=== PATIENT | female | born 1960 | race Caucasian/White ===

== ENCOUNTER 2019-08-12 07:40 | Outpatient (CLI) | payer MEDICAID, SELFPAY ==
[2019-08-12 09:11] LABS: Free T4 Free Thyroxine 0.98 ng/dL (0.76-1.46); Thyroid Stimulating Hormone 0.02 uIU/mL (0.36-3.74)
[2019-08-20 10:36] LABS: Vitamin D 25 Hydroxy 39 ng/mL (30-100)
== END 2019-08-12 07:41 | disposition home or self-care (01) ==
PROVIDERS: PCP Family Medicine; Visit Provider Family Medicine
DX: E03.9 Hypothyroidism, unspecified (principal); E78.2 Mixed hyperlipidemia; E55.9 Vitamin D deficiency, unspecified
CPT/HCPCS: 36415; 82306; 84439; 84443

== ENCOUNTER 2019-08-30 09:37 | Outpatient (CLI) | payer MEDICAID, SELFPAY ==
--- NOTE | ~2019-08-30 | MM_ITS ---
EXAMINATION: MM screening dharmesh BI w li HISTORY: Screening mammogram TECHNIQUE: Craniocaudal and mediolateral oblique 3-D tomosynthesis images were obtained and synthetic 2-D images were generated. CAD analysis was submitted and interpreted. COMPARISON: 08/17/2017 diagnostic left mammogram and left breast ultrasound 08/04/2017, 01/24/2016 bilateral digital screening mammogram examinations BREAST PARENCHYMAL COMPOSITION: The breasts are almost entirely fatty. FINDINGS: There is no evidence of suspicious mass, calcification, or architectural distortion to sugg est malignancy in either breast. There has been no suspicious interval change. IMPRESSION: 1. No mammographic evidence of malignancy. 2. Recommend routine screening mammography in one year. BI-RADS Category 1: Negative Reviewed, dictated and finalized at location A.
== END 2019-08-30 09:38 | disposition home or self-care (01) ==
PROVIDERS: PCP Family Medicine; Visit Provider Family Medicine
DX: Z12.31 Encounter for screening mammogram for malignant neoplasm of breast (principal)
CPT/HCPCS: 77063; 77067

== ENCOUNTER 2019-12-14 17:00 | Outpatient (CLI) | payer MEDICAID, SELFPAY ==
--- NOTE | ~2019-12-14 | XR_ITS ---
XR hand RT min 3V DATE: 12/14/2019 17:15 INDICATION: Right hand pain TECHNIQUE: 3 views COMPARISON: None FINDINGS: There is generalized soft tissue swelling of the right hand. No fracture or dislocation, periosteal reaction or bone destruction, erosive change or chondrocalcino sis. IMPRESSION: Generalized soft tissue swelling of right hand Reviewed, dictated and finalized at location A.
== END 2019-12-14 17:01 | disposition home or self-care (01) ==
LOC: CHSIMG 17:01
PROVIDERS: PCP Family Medicine; Visit Provider Family Medicine
DX: M25.541 Pain in joints of right hand (principal)
CPT/HCPCS: 73130

== ENCOUNTER 2020-01-06 12:46 | Outpatient (CLI) | payer MEDICAID, SELFPAY ==
[2020-01-07 15:24] LABS: SARS-CoV-2 RNA PCR Negative
== END 2020-01-06 12:47 | disposition home or self-care (01) ==
LOC: CHSLAB 12:50
PROVIDERS: PCP Family Medicine; Visit Provider Family Medicine
DX: Z20.828 Contact with and (suspected) exposure to other viral communicable diseases (principal)
CPT/HCPCS: 87635; C9803; U0003

== ENCOUNTER 2020-04-18 13:09 | Observation (INO) | payer BC, SELFPAY ==
[2020-04-18] VITALS (23 sets, daily range): BP systolic 86–162; BP diastolic 35–113; PULSE 71–83; RESP 11–26; TEMP 36.2–36.6; O2SAT 92–100
--- NOTE | ~2020-04-18 | XR_ITS ---
EXAMINATION: XR chest 1V INDICATION: Seizure TECHNIQUE: AP view of the chest is obtained. COMPARISON: None available FINDINGS: The lungs are free of acute opacities. There is no pleural effusion or pneumothorax. Mild e levation of the right hemidiaphragm is noted. The cardiomediastinal silhouette is normal. 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 IMPRESSION: 1. No acute cardiopulmonary abnormality. Reviewed, dictated and finalized at location A. ERCIAL REAL ESTATE SALES MANAGER
--- NOTE | ~2020-04-18 | CT_ITS ---
EXAMINATION: CT brain wo con DATE: 04/18/2020 14:03 INDICATION: Possible seizure TECHNIQUE: Computed tomography (CT) of the head was performed without intravenous contrast. The dose- length product was 605.33 mGy-cm. Automated exposure control and iterative reconstruction technique w ere employed. COMPARISON: None FINDINGS: Mild atrophy. No midline shift. Mild compensatory dilation of the ventricles. There is intr acranial atherosclerosis. There are scattered mild periventricular and subcortical white matter sky es, most likely related to small vessel ischemic disease (microangiopathy). Paranasal sinuses and mas toids are pneumatized. No acute intracranial hemorrhage, infarction, mass or mass effect. IMPRESSION: 1. No acute intracranial abnormality. 2: Chronic age-related findings. Reviewed, dictated and finalized at location B. ETY EDITOR
--- NOTE | 2020-04-18 13:20 | ECG_ITS ---
Measurements Intervals [place] Rate: 78 P: 58 MA: 175 QRS: 47 QRSD: 70 T: 50 QT: 371 QTc: 424 Interpretive Statements SINUS RHYTHM CANNOT RULE OUT SEPTAL INFARCT, AGE INDETERMINATE BORDERLINE ST-T WAVE ABNORMALITY- HIGH LATERAL LEADS BASELINE ARTIFACT- I, II, III, AVR, AVL, AVF, V2-V6 ABNORMAL ECG Electronically Signed On 04-18-2020 15:54:48 ROTARY FURNACE OPERATOR by Vinayak Chong D.O.
--- NOTE | 2020-04-18 13:20 | ED.SEIZURE ---
HPI - Seizure General Chief Complaint: Seizure Stated Complaint: SZ like activity Time Seen by Provider: 04/18/20 13:13 Source: RN notes reviewed History of Present Illness HPI Narrative: Patient presents to emergency department from [facility] for possible seizure-like activity. Per the correction the patient i was going to eat when a the patient began to have tremors in the bilateral arms patient did not lose consciousness at that time and had no loss of bowel or bladder patient does have a history of dementia and is ANO x1-0 at baseline and is new to the [facility]. Patient currently will open eyes and state name but does not give any other history is noted to have tremoring in bilateral upper extremities Related Data Home Medications Medication Instructions Recorded Confirmed aspirin [Aspirin Low Dose] 81 mg PO DAILY 04/18/20 buspirone 10 mg PO TID 04/18/20 divalproex [Depakote] 125 mg PO DAILY 04/18/20 04/18/20 donepezil [Aricept] 10 mg PO DAILY 04/18/20 escitalopram oxalate 10 mg PO DAILY 04/18/20 haloperidol 2 mg PO BID 04/18/20 levothyroxine 50 mcg PO DAILY 04/18/20 lisinopril 2.5 mg PO DAILY 04/18/20 Review of Systems Review of Systems: Narrative: Gen.: Denies fevers or chills ENT: Denies congestion Respiratory: Denies shortness of breath or cough CV: Denies chest pain GI: Denies abdominal pain nausea, emesis or diarrhea Musculoskeletal: Denies back pain or muscle pain Neuro: See HPI Skin: Denies rash Except as documented, all other systems reviewed and negative [facility] Past Medical History Medical History (Updated 04/18/20 @ 16:05 by Krunal Fatima DO) Dementia Social History Social History (Updated 04/18/20 @ 13:23 by Krunal Fatima DO) Smoking status: Never smoker Exam Narrative: Exam Narrative: APPEARANCE: No acute distress, nontoxic, resting in bed EYES: EOMI HEENT: Normocephalic, atraumatic, OMM RESPIRATORY: No respiratory distress Clear to auscultation bilaterally with no rhonchi wheezing or rales. CARDIOVASCULAR: Regular rate and rhythm without murmurs rubs or gallops. ABDOMINAL: Soft, nontender, nondistended, no rebound or guarding MUSCULOSKELETAl: Moves all extremities. No clubbing, cyanosis or edema. NEURO: Awake and alertx 1. Following commands, speech normal, no focal deficits tremoring in bilateral upper extremities that stops when the patient is distracted and focused on following another command SKIN:: Warm, dry. No rashes lesions or abrasions PSYCHIATRIC: Normal affect/mood, Course Course Emergency Course: Discussed with Dr. Perez presentation work-up agrees with plan for admission at this time agrees with plan for Rocephin and will monitor for any seizure activity Discussed with patient and family results of workup and diagnosis. Discussed need for admission. Patient and family understand and agree to current treatment plan Vital Signs Vital signs: Vital Signs Temperature 97.8 F 04/18/20 13:09 Pulse Rate 81 04/18/20 13:09 Respiratory Rate 18 04/18/20 13:09 Blood Pressure 139/69 04/18/20 13:09 Pulse Oximetry 100 04/18/20 13:09 Temperature 97.8 F 04/18/20 13:09 Pulse Rate 75 04/18/20 15:00 Respiratory Rate 16 04/18/20 15:00 Blood Pressure 162/113 H 04/18/20 15:17 Pulse Oximetry 99 04/18/20 14:46 MDM - Seizure Lab Data Result diagrams: 04/18/20 13:34 04/18/20 13:34 Labs: Lab Results 04/18/20 04/18/20 04/18/20 Range/Units 13:34 13:34 13:34 WBC 9.2 (4.5-10.0) K/mm3 RBC 3.51 L (4.2-5.4) M/mm3 Hgb 11.4 L (12.0-15.0) g/dL Hct 35.9 L (37.0-47.0) % MCV 102.3 H (80-100) fl MCH 32.5 (26-34) pg MCHC 31.8 L (32-36) g/dl RDW 15.9 H (11.5-14.5) % Plt Count 314 (150-375) k/mm3 MPV 10.4 (7.4-10.4) fl Immature Gran % (Auto) 0.4 (0-0.5) % Neut % (Auto) 64.1 (45.5-73.1) % Lymph % (Auto) 26.8 (18.3-44.2) % Perkins % (Auto) 7.7 (2.6-8.5) % Eos %
[2020-04-18 13:47] LABS: Basophils Absolute Auto 0.1 K/mm3 (0.0-0.1); Basophils Percent Auto 0.5 % (0.2-1.2); Eosinophils Absolute Auto 0.1 K/mm3 (0-0.3); Eosinophils Percent Auto 0.5 % (0-4.4); Hematocrit 35.9 % (37.0-47.0); Hemoglobin 11.4 g/dL (12.0-15.0); Immature Granulocyte Absolute 0.04 K/mm3 (0.00-0.031); Immature Granulocyte Percent A 0.4 % (0-0.5); Lymphocytes Absolute Auto 2.46 K/mm3 (0.9-3.2); Lymphocytes Percent Auto 26.8 % (18.3-44.2); Mean Corpuscular HGB Conc 31.8 g/dl (32-36); Mean Corpuscular Hemoglobin 32.5 pg (26-34); Mean Corpuscular Volume 102.3 fl (80-100); Mean Platelet Volume 10.4 fl (7.4-10.4); Monocytes Absolute Auto 0.7 K/mm3 (0.1-0.6); Monocytes Percent Auto 7.7 % (2.6-8.5); Neutrophils Absolute Auto 5.9 K/mm3 (1.3-6.7); Neutrophils Percent Auto 64.1 % (45.5-73.1); Platelet Count Result 314 k/mm3 (150-375); Red Blood Count 3.51 M/mm3 (4.2-5.4); Red Cell Distribution Width 15.9 % (11.5-14.5); White Blood Count 9.2 K/mm3 (4.5-10.0)
[2020-04-18 13:57] LABS: Prothrombin Time 13.5 Seconds (11.1-14.7)
[2020-04-18 13:58] LABS: Alanine Aminotransferase 15 U/L (4-35); Albumin Level 3.3 g/dL (3.5-5.1); Alkaline Phosphatase 74 U/L (38-126); Anion Gap 2 mmol/L (8-16); Aspartate Amino Transferase 24 U/L (14-36); Bilirubin,Total 0.2 mg/dL (0.2-1.3); Blood Urea Nitrogen 25 mg/dL (7-17); Calcium 8.7 mg/dL (8.4-10.2); Carbon Dioxide 33 mmol/L (22-30); Chloride 104 mmol/L (98-107); Estimated CRCL calculation 33 ml/min; Estimated Glomerular Filt Rate 33; Glucose 113 mg/dL (65-105); Potassium 4.5 mmol/L (3.4-5.0); Sodium 139 mmol/L (137-145)
[2020-04-18 13:59] LABS: Partial Thromboplastin Time 26.9 SECONDS (22.3-36.8)
[2020-04-18 14:58] LABS: Valproic Acid 74.1 ug/mL (50-120)
[2020-04-18 15:16] LABS: Add Urine Microscopic? YES; Appearance Urine Cloudy (Clear); Bacteria Urine 1+ /hpf; Bilirubin Urine Negative (Negative); Blood Urine Negative (Negative); Color Urine Yellow (Yellow); Glucose Urine UA 3+ mg/dL (Negative); Ketones Urine Negative (Negative); Leukocyte Esterase Ur 2+ LEU/UL (Negative); Mucus Urine Heavy /lpf; Nitrate Urine Positive (Negative); Protein Urine 2+ mg/dL (Negative); Specific Grav Ur 1.021 (1.001-1.035); Squamous Epithelial Cell Urine Few /hpf (Few); WBC Clumps Urine Present /HPF; WBC Urine >75 /hpf
--- NOTE | 2020-04-18 17:23 | PM.IMHP ---
H&P: HPI History of Present Illness Date/Time: 04/18/20 17:00 Chief Complaint: Tremors. Narrative: This is an unfortunate 59-year-old female with dementia, schizophrenia, hypothyroidism, and hypertension who presented to the emergency department earlier today via EMS from a local nursing facility with reports of tremors. The patient was being fed lunch and staff noticed that her hands and arms were tremoring and they thought perhaps she was having a seizure and sent her in for evaluation. On arrival to the emergency department she was alert and oriented x1, which is apparently her baseline. She was found to have a urinary tract infection and is being admitted in this setting, and for further evaluation to see if these tremors return. At the time my evaluation the nurses trying to obtain an IV. The patient can't provide me with any meaningful history, with bizarre and nonsensical speech. She is not fully cooperative with exam either, and frequently tries to remove her telemetry leads. Review of Systems Review of Systems: Narrative: A review of systems is unable to be obtained given her severe schizophrenia and dementia. [facility] Past Medical History Medical History (Updated 04/18/20 @ 20:20 by Lissa Delong PA-C) Alzheimer's dementia Anxiety Hypertension Hypothyroidism Schizophrenia Surgical History Surgical History (Updated 04/18/20 @ 20:20 by Lissa Delong PA-C) Surgical history unknown Family History Family History (Updated 04/18/20 @ 20:41 by Lissa Delong PA-C) Mother Lung cancer Father Esophageal cancer Son Chronic mental illness Social History Social History (Updated 04/18/20 @ 20:42 by Lissa Delong PA-C) Social History: The patient resides at [facility]. She has 3 children, but it does not sound as though they keep in touch. She smoked for a brief period of time when she was in her teenage years. No alcohol or illicit substance use. The patient's sister Gillian Cooney is listed in the computer as her emergency contact. I did speak with Emilee who reports that the patient's daughter, Claudia Reyes, would likely be her next of kin and surrogate decision maker, however. The patient is a full code at this time. No advanced directives are in place. Meds Home Medications and Allergies Home Medications Medication Instructions Recorded Confirmed Type aspirin [Adult Aspirin] 81 mg PO DAILY 04/18/20 04/18/20 History buspirone 10 mg PO TID 04/18/20 04/18/20 History divalproex [Depakote Sprinkles] 375 mg PO TID 04/18/20 04/18/20 History donepezil 10 mg PO DAILY 04/18/20 04/18/20 History ergocalciferol (vitamin D2) 1,250 mcg PO WEEKLY 04/18/20 04/18/20 History [Vitamin D2] escitalopram oxalate 10 mg PO DAILY 04/18/20 04/18/20 History haloperidol 2 mg PO BID 04/18/20 04/18/20 History levothyroxine 50 mcg PO DAILY 04/18/20 04/18/20 History lisinopril 2.5 mg PO DAILY 04/18/20 04/18/20 History memantine 10 mg PO BID 04/18/20 04/18/20 History Allergies Allergy/AdvReac Type Severity Reaction Status Date / Time No Known Allergies Allergy Verified 04/18/20 17:33 Vital Signs Vital Signs - 24 hr 04/18/20 13:09 04/18/20 13:13 04/18/20 13:15 Temperature 97.8 F Pulse Rate 81 81 82 Respiratory Rate 18 13 26 H Blood Pressure 139/69 Pulse Oximetry 100 98 98 04/18/20 13:16 04/18/20 13:30 04/18/20 13:32 Temperature Pulse Rate 82 80 81 Respiratory Rate 18 15 17 Blood Pressure 144/104 H 128/46 L Pulse Oximetry 100 100 98 04/18/20 13:45 04/18/20 13:47 04/18/20 14:09 Temperature Pulse Rate 79 79 76 Respiratory Rate 11 L 16 15 Blood Pressure 86/73 L Pulse Oximetry 98 04/18/20 14:10 04/18/20 14:15 04/18/20 14:16 Temperature Pulse Rate 76 Respiratory Rate 16 12 12 Blood Pressure 128/106 H 139/97 H Pulse Oximetry 100 100 99 04/18/20 14:30 04/18/20 14:31 04/18/20 14:45 Temperature Pulse Rate 73 74 74 Respiratory
--- NOTE | 2020-04-18 17:47 | ADMGEN ---
This patient, Vicki Proctor, was admitted to Medical Room 246-. Patient/family oriented to hospital policies and general routines including ID bracelet, bed and alarms, visiting hours, pain management, procedures, bathroom and other care routines, personal items, smoking policy, room service/diet, and visiting hours. Information on how to activate the Rapid Response Team has been discussed. Patient/Family are encouraged to report perceived risks to care and to ask questions if they do not understand what they are told or what they should do.
[2020-04-18] MEDS: SODIUM CHLORIDE 0.9% IV 1,000 ML 100 ML IV CONT (18:21)
[2020-04-18] MEDS: HALOPERIDOL 1 MG TABLET 2 MG PO (21:29)
[2020-04-18] MEDS: DIVALPROEX SODIUM SPRINKLE 125 MG CAP.DR 375 MG PO (21:30)
[2020-04-18] MEDS: busPIRone HCL 10 MG TABLET PO (21:30)
[2020-04-18] MEDS: MEMANTINE 10 MG TABLET PO (21:30)
[2020-04-18 21:52] LABS: Creatine Kinase 171 U/L (30-135)
[2020-04-18 22:22] LABS: Iron 35 ug/dL (37-170)
[2020-04-18 22:31] LABS: Percent Iron Saturation 13 % (20-50)
[2020-04-18 22:32] LABS: Valproic Acid 57.3 ug/mL (50-120)
[2020-04-18 22:59] LABS: Folic Acid 12.1 ng/mL (2.76->20)
--- NOTE | 2020-04-18 23:52 | PC.NURSE ---
Pt does not tolerate telemetry, pt continuously removes leads. Telemetry order D/C by Lissa Delong.
[2020-04-19 05:56] VITALS: BP 146/76; PULSE 100; RESP 16; TEMP 36.1; O2SAT 95
[2020-04-19 05:58] LABS: Basophils Absolute Auto 0.1 K/mm3 (0.0-0.1); Basophils Percent Auto 0.6 % (0.2-1.2); Eosinophils Absolute Auto 0.1 K/mm3 (0-0.3); Eosinophils Percent Auto 1.7 % (0-4.4); Hematocrit 31.3 % (37.0-47.0); Hemoglobin 9.9 g/dL (12.0-15.0); Immature Granulocyte Absolute 0.02 K/mm3 (0.00-0.031); Immature Granulocyte Percent A 0.2 % (0-0.5); Lymphocytes Percent Auto 41.7 % (18.3-44.2); Mean Corpuscular HGB Conc 31.6 g/dl (32-36); Mean Corpuscular Hemoglobin 31.3 pg (26-34); Mean Corpuscular Volume 99.1 fl (80-100); Mean Platelet Volume 10.8 fl (7.4-10.4); Monocytes Absolute Auto 0.8 K/mm3 (0.1-0.6); Monocytes Percent Auto 9.6 % (2.6-8.5); Neutrophils Absolute Auto 3.8 K/mm3 (1.3-6.7); Neutrophils Percent Auto 46.2 % (45.5-73.1); Platelet Count Result 293 k/mm3 (150-375); Red Blood Count 3.16 M/mm3 (4.2-5.4); Red Cell Distribution Width 15.4 % (11.5-14.5); White Blood Count 8.2 K/mm3 (4.5-10.0)
[2020-04-19 06:01] LABS: Magnesium 1.9 mg/dL (1.6-2.3)
[2020-04-19 06:08] LABS: Alanine Aminotransferase 11 U/L (4-35); Albumin Level 2.6 g/dL (3.5-5.1); Alkaline Phosphatase 67 U/L (38-126); Anion Gap 2 mmol/L (8-16); Aspartate Amino Transferase 21 U/L (14-36); Bilirubin,Total 0.2 mg/dL (0.2-1.3); Blood Urea Nitrogen 21 mg/dL (7-17); Calcium 8.1 mg/dL (8.4-10.2); Carbon Dioxide 29 mmol/L (22-30); Chloride 108 mmol/L (98-107); Estimated CRCL calculation 41 ml/min; Estimated Glomerular Filt Rate 50; Glucose 85 mg/dL (65-105); Potassium 4.2 mmol/L (3.4-5.0); Sodium 139 mmol/L (137-145)
[2020-04-19] MEDS: LEVOTHYROXINE SODIUM 50 MCG TABLET PO (06:17)
[2020-04-19] MEDS: SODIUM CHLORIDE 0.9% IV 1,000 ML 100 ML IV CONT (07:22)
[2020-04-19] MEDS: HALOPERIDOL 1 MG TABLET 2 MG PO ×2 (09:04→17:07)
[2020-04-19] MEDS: DONEPEZIL HCL 10 MG TABLET PO (09:05)
[2020-04-19] MEDS: MEMANTINE 10 MG TABLET PO ×2 (09:05→17:07)
[2020-04-19] MEDS: ESCITALOPRAM OXALATE 10 MG TABLET PO (09:05)
[2020-04-19] MEDS: busPIRone HCL 10 MG TABLET PO ×3 (09:05→17:07)
[2020-04-19] MEDS: lisinopriL 2.5 MG TABLET PO (09:05)
[2020-04-19] MEDS: DIVALPROEX SODIUM SPRINKLE 125 MG CAP.DR 375 MG PO ×3 (09:05→17:07)
[2020-04-19] MEDS: ASPIRIN 81 MG CHEWABLE TABLET PO (09:05)
[2020-04-19 09:50] VITALS: O2SAT 95
--- NOTE | 2020-04-19 11:41 | PM.IMPN ---
Progress Note: A&P Assessment and Plan (1) Coarse tremors: Code(s): G25.2 - Other specified forms of tremor Status: Resolved Assessment and Plan: Brought in from alf due to staff noticing tremor. This has not been present since she has been admitted. CT brain shows chronic age-related findings without acute intracranial abnormality. (2) Urinary tract infection: Code(s): N39.0 - Urinary tract infection, site not specified Status: Acute Assessment and Plan: UA grossly abnormal. No leukocytosis or fever. She was given a dose of Rocephin prior to losing IV access; we will switch to oral cefdinir while awaiting blood and urine cultures. (3) Macrocytic anemia: Code(s): D53.9 - Nutritional anemia, unspecified Status: Acute Assessment and Plan: Baseline is unclear. No evidence of acute bleeding. Monitor CBC. (4) Renal failure: Code(s): N19 - Unspecified kidney failure Status: Acute Assessment and Plan: Baseline is unclear. Cr 1.6 on arrival, improved to 1.1 with IV fluids. May have been related to poor oral intake recently. She is eating and drinking okay today, discontinue IV fluids and monitor renal function and urine output. (5) Hypertension: Code(s): I10 - Essential (primary) hypertension Status: Chronic Assessment and Plan: BPs stable maintained on lisinopril. Monitor BP and adjust treatment as needed. (6) Alzheimer's dementia: Code(s): G30.9 - Alzheimer's disease, unspecified; F02.80 - Dementia in other diseases classified elsewhere without behavioral disturbance Status: Chronic Assessment and Plan: Continue home aricept and namenda. Continue lexapro, haldol, depakote. Stable. (7) Hypothyroidism: Code(s): E03.9 - Hypothyroidism, unspecified Status: Chronic Assessment and Plan: Continue home levothyroxine. (8) Schizophrenia: Code(s): F20.9 - Schizophrenia, unspecified Status: Chronic Assessment and Plan: Continue home meds as stated above. Mood is stable today without acute issues. Subjective Date/time seen: 04/19/20 1130 Interval history: Ms. Proctor is a 59yo F with dementia and schizophrenia who is admitted after alf staff noted tremor. Also has UTI. Patient is resting comfortably and wakes a bit to answer questions, but does not answer all questions appropriately. Review of systems is limited due to her mental status however she tells me she is not in any pain. Review of Systems Review of Systems: ROS unobtainable: Yes unobtainable due to mental status Exam Narrative: Exam Narrative: General: Female resting supine in bed in no acute distress. HEENT: Normocephalic, EOMI, oral mucosa moist. Cardiovascular: Rate and rhythm are regular. Respiratory: Lungs clear to auscultation bilaterally. Respirations even and non-labored. Tolerating room air. Abdomen: Soft, non-tender, non-distended, bowel sounds present. Extremities: Peripheral pulses intact. No edema. Neuro: Sleeping but wakes to her name. Oriented to self. I have been told this is her baseline. No focal neurological deficits. Speech is clear. Objective Data Vital Signs Vital Signs: Last Vital Signs Temp 96.9 F L 04/19/20 05:56 Pulse 100 04/19/20 05:56 Resp 16 04/19/20 05:56 BP 146/76 H 04/19/20 05:56 Pulse Ox 95 04/19/20 09:50 Intake/Output Intake/Output: Intake & Output 04/16/20 04/17/20 04/18/20 04/19/20 23:59 23:59 23:59 23:59 Intake Total 50 1360 Balance 50 1360 Meds/Results Medications: Active Medi
[2020-04-19 14:00] VITALS: BP 139/56; PULSE 80; RESP 16; TEMP 36.3; O2SAT 94
[2020-04-19] MEDS: CEFDINIR 300 MG CAPSULE PO (17:07)
[2020-04-19 20:53] LABS: SARS-CoV-2 RNA PCR Negative
[2020-04-19 21:56] VITALS: BP 134/72; PULSE 75; RESP 16; TEMP 36.6; O2SAT 97
[2020-04-20 05:30] VITALS: BP 139/73; PULSE 73; RESP 18; TEMP 36.6; O2SAT 95
[2020-04-20 05:49] LABS: Basophils Absolute Auto 0.1 K/mm3 (0.0-0.1); Eosinophils Absolute Auto 0.2 K/mm3 (0-0.3); Eosinophils Percent Auto 2.8 % (0-4.4); Hemoglobin 10.9 g/dL (12.0-15.0); Immature Granulocyte Absolute 0.03 K/mm3 (0.00-0.031); Immature Granulocyte Percent A 0.4 % (0-0.5); Lymphocytes Absolute Auto 3.74 K/mm3 (0.9-3.2); Lymphocytes Percent Auto 54.8 % (18.3-44.2); Mean Corpuscular Hemoglobin 32.9 pg (26-34); Mean Corpuscular Volume 99.7 fl (80-100); Mean Platelet Volume 10.5 fl (7.4-10.4); Monocytes Absolute Auto 0.6 K/mm3 (0.1-0.6); Monocytes Percent Auto 8.7 % (2.6-8.5); Neutrophils Absolute Auto 2.2 K/mm3 (1.3-6.7); Neutrophils Percent Auto 32.3 % (45.5-73.1); Platelet Count Result 305 k/mm3 (150-375); Red Blood Count 3.31 M/mm3 (4.2-5.4); Red Cell Distribution Width 15.1 % (11.5-14.5); White Blood Count 6.8 K/mm3 (4.5-10.0)
[2020-04-20 06:01] LABS: Anion Gap 1 mmol/L (8-16); Blood Urea Nitrogen 16 mg/dL (7-17); Calcium 8.4 mg/dL (8.4-10.2); Carbon Dioxide 32 mmol/L (22-30); Chloride 105 mmol/L (98-107); Estimated CRCL calculation 41 ml/min; Estimated Glomerular Filt Rate 50; Glucose 77 mg/dL (65-105); Magnesium 1.9 mg/dL (1.6-2.3); Potassium 4.1 mmol/L (3.4-5.0); Sodium 138 mmol/L (137-145)
[2020-04-20] MEDS: LEVOTHYROXINE SODIUM 50 MCG TABLET PO (06:29)
[2020-04-20] MEDS: DIVALPROEX SODIUM SPRINKLE 125 MG CAP.DR 375 MG PO ×3 (09:09→17:05)
[2020-04-20] MEDS: ESCITALOPRAM OXALATE 10 MG TABLET PO (09:09)
[2020-04-20] MEDS: DONEPEZIL HCL 10 MG TABLET PO (09:09)
[2020-04-20] MEDS: MEMANTINE 10 MG TABLET PO ×2 (09:09→17:05)
[2020-04-20] MEDS: busPIRone HCL 10 MG TABLET PO ×3 (09:09→17:05)
[2020-04-20] MEDS: CEFDINIR 300 MG CAPSULE PO ×2 (09:09→20:52)
[2020-04-20] MEDS: lisinopriL 2.5 MG TABLET PO (09:09)
[2020-04-20] MEDS: ASPIRIN 81 MG CHEWABLE TABLET PO (09:09)
[2020-04-20] MEDS: HALOPERIDOL 1 MG TABLET 2 MG PO ×2 (09:09→17:05)
--- NOTE | 2020-04-20 10:23 | PM.DS ---
DS: Admitting Diagnosis Admitting Diagnosis Admitting Diagnosis: UTI DS: Discharge Diagnosis Discharge Diagnosis (1) Coarse tremors: Code(s): G25.2 - Other specified forms of tremor Status: Resolved Assessment and Plan: Date of Admission 04/18/20 Date of Discharge/DOS 04/20/20 Ms. Proctor is a 59yo F with dementia and schizophrenia, hypertension, and hypothyroidism, who presented to the ED from [facility] because long term staff noticed she had a tremor. This tremor was resolved at time of her arrival and did not recur during her admission. CT brain demonstrated no acute intracranial abnormalities. Routine lab work was grossly normal aside from mild acute kidney injury which resolved with IV fluids (suspect related to mild dehydration), an abnormal urinalysis and urine culture growing pansensitive E coli. She will discharge with oral cefdinir to complete course of antibiotics. COVID testing 04/19/20 is negative. She is hemodynamically stable for discharge on 04/20/20 to be seen by PCP/long term provider in about 1 week. Brought in from long term due to staff noticing tremor. This has not been present since she has been admitted. CT brain shows chronic age-related findings without acute intracranial abnormality. (2) Urinary tract infection: Code(s): N39.0 - Urinary tract infection, site not specified Status: Acute Assessment and Plan: UA grossly abnormal. No leukocytosis or fever. She was given a dose of Rocephin prior to losing IV access. Continue oral cefdinir. Urine culture growing >100,000 pansensitive E coli. (3) Macrocytic anemia: Code(s): D53.9 - Nutritional anemia, unspecified Status: Acute Assessment and Plan: Baseline is unclear. No evidence of acute bleeding. Monitor CBC. (4) Renal failure: Code(s): N19 - Unspecified kidney failure Status: Acute Assessment and Plan: Baseline is unclear. Cr 1.6 on arrival, improved to 1.1 with IV fluids. May have been related to poor oral intake recently. She is eating and drinking okay now. (5) Hypertension: Code(s): I10 - Essential (primary) hypertension Status: Chronic Assessment and Plan: BPs stable maintained on lisinopril. (6) Alzheimer's dementia: Code(s): G30.9 - Alzheimer's disease, unspecified; F02.80 - Dementia in other diseases classified elsewhere without behavioral disturbance Status: Chronic Assessment and Plan: Continue home aricept and namenda. Continue lexapro, haldol, depakote. Stable. (7) Hypothyroidism: Code(s): E03.9 - Hypothyroidism, unspecified Status: Chronic Assessment and Plan: Continue home levothyroxine. (8) Schizophrenia: Code(s): F20.9 - Schizophrenia, unspecified Status: Chronic Assessment and Plan: Continue home meds as stated above. Mood is stable today without acute issues. DS: Summary Hospital Course Hospital Course: See above. Time Spent with Patient Time attestation: Total time spent providing and/or coordinating discharge services: 35 minutes Exam Narrative: Exam Narrative: General: Female resting supine in bed in no acute distress. HEENT: Normocephalic, EOMI, oral mucosa moist. Cardiovascular: Rate and rhythm are regular. Respiratory: Lungs clear to auscultation bilaterally. Respirations even and non-labored. Tolerating room air. Abdomen: Soft, non-tender, non-distended, bowel sounds present. Extremities: Peripheral pulses intact. No edema. Neuro: Awake. Oriented t
[2020-04-20 14:00] VITALS: BP 133/88; PULSE 70; RESP 14; TEMP 36.5; O2SAT 95
[2020-04-20 22:00] VITALS: BP 142/76; PULSE 68; RESP 20; TEMP 37.2; O2SAT 96
--- NOTE | 2020-04-27 08:52 | PC.NURSE ---
Blood cx are negative
--- NOTE | 2020-04-30 16:11 | PC.NURSE ---
blood cx negative.
== END 2020-04-21 01:05 ==
LOC: ANHED 16:05 → ANH2MED 16:22
PROVIDERS: Physician Assistant; Admitting Provider Family Medicine; Emergency Provider Emergency Medicine; Visit Provider Family Medicine
DX: N39.0 Urinary tract infection, site not specified (principal); G25.2 Other specified forms of tremor; B96.20 Unspecified Escherichia coli [E. coli] as the cause of diseases classified elsewhere; I10 Essential (primary) hypertension; E03.9 Hypothyroidism, unspecified; D53.9 Nutritional anemia, unspecified; N19 Unspecified kidney failure; G30.9 Alzheimer's disease, unspecified; F02.80 Dementia in other diseases classified elsewhere, unspecified severity, without behavioral disturbance, psychotic disturbance, mood disturbance, and anxiety; F20.9 Schizophrenia, unspecified; F41.9 Anxiety disorder, unspecified; Z20.822 Contact with and (suspected) exposure to COVID-19; Z80.0 Family history of malignant neoplasm of digestive organs; Z80.1 Family history of malignant neoplasm of trachea, bronchus and lung
CPT/HCPCS: 36415; 51701; 70450; 71045; 80048; 80053; 80164; 81001; 82550; 82607; 82728; 82746; 83540; 83550; 83735; 84443; 85025; 85610; 85730; 87040; 87077; 87086; 87088; 87186; 93005; 96360; 96361; 96365; 99285; A9270; C9803; G0378; G0379; J0696; J7030; U0003; U0005

== ENCOUNTER 2020-07-06 12:09 | Inpatient (IN) | payer BC, SELFPAY ==
--- NOTE | ~2020-07-06 | XR_ITS ---
EXAMINATION: XR chest 1V portable EXAM DATE: 07/06/2020 12:49 INDICATION: Altered mental status. TECHNIQUE: Portable AP frontal chest x-ray was obtained. There is no prior study for comparison. FINDINGS: Some scattered bibasilar airspace disease, could be atelectasis but please exclude pneumoni a clinically. The lungs are otherwise clear. There are no pleural effusions. The cardiomediastinal silhouette is within normal limits. There is no pneumothorax suspected. The bones and soft tissues are unremarkable. IMPRESSION: Subsegmental bibasilar airspace disease, could be atelectasis but please exclude pneumoni a clinically. Reviewed, dictated and finalized at location A. IMPRESSION: Subsegmental bibasilar airspace disease, could be atelectasis but p lease exclude pneumonia clinically.
--- NOTE | ~2020-07-06 | CT_ITS ---
EXAMINATION: CT brain wo con DATE: 07/06/2020 13:21 INDICATION: Altered mental status TECHNIQUE: Computed tomography (CT) of the head was performed without intravenous contrast. The dose- length product was 1059.33 mGy-cm. Automated exposure control and iterative reconstruction technique were employed. COMPARISON: CT dated 04/18/2020 FINDINGS: Generalized atrophy. There are scattered mild periventricular and subcortical white matter changes, most likely related to small vessel ischemic disease (microangiopathy). No acute intracrania l hemorrhage, infarction, mass or mass effect. There is intracranial atherosclerosis. Paranasal sinus es and mastoids are pneumatized. No depressed skull fractures. There are chronic lacunar infarctions inferior aspect of the basal ganglia bilaterally. IMPRESSION: 1. No acute intracranial abnormality. No significant interval change. Reviewed, dictated and finalized at location B.
[2020-07-06 12:07] VITALS: BP 134/49; PULSE 94; RESP 18; O2SAT 100
--- NOTE | 2020-07-06 12:17 | ED.AMS ---
HPI - Altered Mental Status General Chief Complaint: Altered Mental Status Stated Complaint: ALT MENTAL STATUS Time Seen by Provider: 07/06/20 12:15 History of Present Illness HPI narrative: 60 yo female brought in by EMS from [place] for altered mental status. She was last normal around breakfast time. Staff found her slumped in her room and she did not appear to be breathing well. When EMS arrived. She continued to be obtunded. Pulse oximetry was in the mid 80's. She was given Narcan and placed on 2 liters O2. She did reportedly become temporarily more responsive. She is not known to be on and opioids. On my evaluation she continues to be obtunded and responds only to painful stimuli. She is on haldol and other sedating medication. Related Data Home Medications Medication Instructions Recorded Confirmed aspirin 81 mg PO DAILY 04/18/20 04/18/20 buspirone 10 mg PO TID 04/18/20 04/18/20 divalproex [Depakote Sprinkles] 375 mg PO TID 04/18/20 04/18/20 donepezil 10 mg PO DAILY 04/18/20 04/18/20 ergocalciferol (vitamin D2) 1,250 mcg PO WEEKLY 04/18/20 04/18/20 [Vitamin D2] escitalopram oxalate 10 mg PO DAILY 04/18/20 04/18/20 haloperidol 2 mg PO BID 04/18/20 04/18/20 levothyroxine 50 mcg PO DAILY 04/18/20 04/18/20 lisinopril 2.5 mg PO DAILY 04/18/20 04/18/20 memantine 10 mg PO BID 04/18/20 04/18/20 Allergies Allergy/AdvReac Type Severity Reaction Status Date / Time No Known Allergies Allergy Verified 04/18/20 17:33 Review of Systems Review of Systems: ROS unobtainable: Yes unobtainable due to mental status PMFSH Past Medical History Medical History Alzheimer's dementia Anxiety Hypertension Hypothyroidism Schizophrenia Surgical History Surgical History Surgical history unknown Family History Family History Mother Lung cancer Father Esophageal cancer Son Chronic mental illness Social History Social History Social History: The patient resides at [facility]. She has 3 children, but it does not sound as though they keep in touch. She smoked for a brief period of time when she was in her teenage years. No alcohol or illicit substance use. The patient's sister Gillian Cooney is listed in the computer as her emergency contact. I did speak with Emilee who reports that the patient's daughter, Claudia Reyes, would likely be her next of kin and surrogate decision maker, however. The patient is a full code at this time. No advanced directives are in place. Exam Const: General: no acute distress Nutritional Appearance: well nourished Other: obtunded. Protecting airway, gag reflex intact. HENMT: Head: normal to inspection, no contusions and no lacerations Eyes: Pupils: Equal, round and reactive pupils present Neck: Neck: normal visual inspection Resp: Effort & Inspection: normal respiratory effort Auscultation: clear to auscultation bilaterally Cardio: Rate: regular rate Rhythm: regular rhythm GI: GI Palp: Yes Soft to palpation and No Tenderness to palpation present (GI) Skin: General skin exam: normal color Neuro: General: moves all extremities and CN's II-XI intact bilaterally Other: Rare speech, but words are intelligible Extrem: General: normal to inspection and no edema Course Vital Signs Vital signs: Vital Signs Pulse Rate 94 07/06/20 12:07 Respiratory Rate 18 07/06/20 12:07 Blood Pressure 134/49 L 07/06/20 12:07 Pulse Oximetry 100 07/06/20 12:07 Pulse Rate 94 07/06/20 12:07 Respiratory Rate 18 07/06/20 12:07 Blood Pressure 134/49 L 07/06/20 12:07 Pulse Oximetry 100 07/06/20 12:07 MDM - Altered Mental Status MDM Narrative Medical decision making narrative: Infiltrates on CXR. Most likley atelectasis, but grady
[2020-07-06 12:30] LABS: Basophils Absolute Auto 0.1 K/mm3 (0.0-0.1); Basophils Percent Auto 0.5 % (0.2-1.2); Eosinophils Percent Auto 0.2 % (0-4.4); Hematocrit 36.8 % (37.0-47.0); Hemoglobin 11.6 g/dL (12.0-15.0); Immature Granulocyte Absolute 0.05 K/mm3 (0.00-0.031); Immature Granulocyte Percent A 0.4 % (0-0.5); Lymphocytes Absolute Auto 1.71 K/mm3 (0.9-3.2); Lymphocytes Percent Auto 14.8 % (18.3-44.2); Mean Corpuscular HGB Conc 31.5 g/dl (32-36); Mean Corpuscular Hemoglobin 32.9 pg (26-34); Mean Corpuscular Volume 104.2 fl (80-100); Mean Platelet Volume 10.5 fl (7.4-10.4); Monocytes Absolute Auto 1.3 K/mm3 (0.1-0.6); Monocytes Percent Auto 10.8 % (2.6-8.5); Neutrophils Absolute Auto 8.5 K/mm3 (1.3-6.7); Neutrophils Percent Auto 73.3 % (45.5-73.1); Platelet Count Result 220 k/mm3 (150-375); Red Blood Count 3.53 M/mm3 (4.2-5.4); Red Cell Distribution Width 16.3 % (11.5-14.5); White Blood Count 11.6 K/mm3 (4.5-10.0)
[2020-07-06 12:39] LABS: Prothrombin Time 13.7 Seconds (11.1-14.7)
[2020-07-06 12:39] LABS: Alveolar/Arterial O2 Gradient 27.1 mmHg; Base Excess ABG -2.1 mEq/l (+/-2.0); Fractional Inspired Oxygen 21 %; HCO3 ABG 22.6 mEq/l (22.0-26.0); Oxygen Content ABG 14.8 %vol (16.0-22.0); Oxygen Saturation ABG 95.1 % (95.0-100.0); Oxyhemoglobin 93.7 % THb (90.0-100.0); PCO2 ABG 38.8 mmHg (35.0-45.0); PO2 ABG 76.2 mmHg (80.0-100.0); PO2 FiO2 Ratio Arterial Blood 3.63 %; Total Hemoglobin 11.2 g/dL (12.0-18.0); pH ABG 7.384 (7.350-7.450)
[2020-07-06 12:40] LABS: Alanine Aminotransferase 13 U/L (4-35); Albumin Level 3.4 g/dL (3.5-5.1); Alkaline Phosphatase 79 U/L (38-126); Anion Gap 8 mmol/L (8-16); Aspartate Amino Transferase 29 U/L (14-36); Bilirubin,Total 0.3 mg/dL (0.2-1.3); Blood Urea Nitrogen 38 mg/dL (7-17); Calcium 8.8 mg/dL (8.4-10.2); Carbon Dioxide 26 mmol/L (22-30); Chloride 107 mmol/L (98-107); Estimated CRCL calculation 28 ml/min; Estimated Glomerular Filt Rate 29; Glucose 162 mg/dL (65-105); Partial Thromboplastin Time 24.7 SECONDS (22.3-36.8); Potassium 4.6 mmol/L (3.4-5.0); Sodium 141 mmol/L (137-145)
[2020-07-06 12:41] LABS: Device ROOM AIR; Site Drawn LEFT BRACHIAL
[2020-07-06] MEDS: SODIUM CHLORIDE 0.9% IV 1,000 ML 999 ML IV CONT (12:50)
[2020-07-06 12:55] LABS: Lactic Acid Reflex 3.2 mmol/L (0.7-2.1)
[2020-07-06 13:02] LABS: Ammonia < 9 umol/L (9-30)
[2020-07-06 13:53] LABS: Add Urine Microscopic? YES; Appearance Urine Cloudy (Clear); Bacteria Urine Trace /hpf; Bilirubin Urine Negative (Negative); Blood Urine 2+ (Negative); Color Urine Yellow (Yellow); Glucose Urine UA 2+ mg/dL (Negative); Hyaline Casts Urine 50+ /lpf; Ketones Urine Negative (Negative); Leukocyte Esterase Ur 3+ LEU/UL (Negative); Mucus Urine Rare /lpf; Nitrate Urine Negative (Negative); Protein Urine 2+ mg/dL (Negative); Specific Grav Ur 1.017 (1.001-1.035); Squamous Epithelial Cell Urine Few /hpf (Few); Urobilinogen Urine Negative mg/dL (<2.0); WBC Clumps Urine Present /HPF; WBC Urine >75 /hpf
--- NOTE | 2020-07-06 14:40 | PC.NURSE ---
Called to give report. Was told by Shawna that nurse is at lunch and will call me back.
[2020-07-06 15:45] LABS: Reflex Lactic Acid Yes or No Add Lactic
[2020-07-06] MEDS: LACTATED RINGERS 1,000 ML 100 ML IV CONT (15:59)
[2020-07-06 16:10] LABS: Lactic Acid 1.9 mmol/L (0.7-2.1)
[2020-07-06 16:55] LABS: Glucose Point of Care 101 (65-105)
--- NOTE | 2020-07-06 17:15 | ECG_ITS ---
Measurements Intervals [place] Rate: 92 P: 40 AR: 168 QRS: 14 QRSD: 74 T: 56 QT: 359 QTc: 445 Interpretive Statements SINUS RHYTHM POSSIBLE LEFT ATRIAL ENLARGEMENT ANTEROSEPTAL INFARCT, AGE INDETERMINATE BORDERLINE ST ABNORMALITY- HIGH LATERAL LEADS BASELINE ARTIFACT- III, AVR, AVL, AVF ABNORMAL ECG Electronically Signed On 07-06-2020 19:20:43 CDT by Vinayak Chong D.O.
[2020-07-06 20:00] VITALS: PULSE 78
--- NOTE | 2020-07-06 20:00 | PM.IMHP ---
H&P: HPI History of Present Illness Date/Time: 07/06/20 20:00 Chief Complaint: Unresponsive. Narrative: This is a 60-year-old female with dementia, schizophrenia, hypothyroidism, chronic kidney disease, and hypertension who presented to the emergency department earlier today via EMS from [facility] after she was found unresponsive. I am familiar with the patient and she seems to be at her baseline, which is alert and oriented x1. Due to her underlying dementia and schizophrenia she is not a good historian and thus all of the following is obtained via a review of her electronic medical records as well as discussions with nursing staff. Just prior to arrival she was found to be unresponsive and slumped over in a chair. EMS was summoned on their arrival she was reportedly hypoxic with an SpO2 of 82% on room air, was hypotensive, and pupils were pinpoint. She was given 2 milligrams of Narcan with some response although she is not on narcotics that I can see. Workup in the emergency department showed an abnormal urinalysis consistent with urinary tract infection as well as an increase in creatinine likely due to dehydration. She was weaned from the oxygen quickly and has been on room air since that time without any drop in her oxygen saturations. Chest x-ray demonstrates most likely atelectasis. At the time my evaluation she is alert but not able to provide any information. She did eat dinner with the help of the SCHOOL ADMISSIONS REPRESENTATIVE and she had no issues with eating. Review of Systems Review of Systems: Narrative: A review of systems is unable to be obtained accurately given her baseline chronic conditions as detailed above. [facility] Past Medical History Medical History (Updated 07/06/20 @ 22:06 by Lissa Delong PA-C) Alzheimer's dementia Anxiety Chronic kidney disease, stage 3 Baseline creatinine is around 1.10 she she. She okay are asking Dr. Babcock that on her way up to see her on but all passed along palpate Hypertension Hypothyroidism Macrocytic anemia Schizophrenia Surgical History Surgical History Surgical history unknown Family History Family History Mother Lung cancer Father Esophageal cancer Son Chronic mental illness Social History Social History (Updated 07/06/20 @ 22:06 by Lissa Delong PA-C) Social History: The patient resides at [facility]. She has 3 children, but it does not sound as though they keep in touch. She smoked for a brief period of time when she was in her teenage years. No alcohol or illicit substance use. The patient's sister Gillian Cooney is listed in the computer as her emergency contact. I did speak with Emilee who reports that the patient's daughter, Claudia Reyes, would likely be her next of kin and surrogate decision maker, however. The patient is a full code at this time. Smoking status: Smoker, status unknown Alcohol intake: unknown Substance use: unknown Spiritual care concerns: No Meds Home Medications and Allergies Home Medications Medication Instructions Recorded Confirmed Type aspirin 81 mg PO DAILY 04/18/20 07/06/20 History buspirone 10 mg PO TID 04/18/20 07/06/20 History divalproex [Depakote Sprinkles] 375 mg PO TID 04/18/20 07/06/20 History donepezil 10 mg PO DAILY 04/18/20 07/06/20 History ergocalciferol (vitamin D2) 1,250 mcg PO WEEKLY 04/18/20 07/06/20 History [Vitamin D2] escitalopram oxalate 10 mg PO DAILY 04/18/20 07/06/20 History haloperidol 2 mg PO BID 04/18/20 07/06/20 History levothyroxine 50 mcg PO DAILY 04/18/20 07/06/20 History lisinopril 2.5 mg PO DAILY 04/18/20 07/06/20 History memantine 10 mg PO BID 04/18/20 07/06/20 History quetiapine 300 mg PO BID 07/06/20 07/06/20 History Allergies Allergy/AdvReac Type Severity Reaction Status Date / Time No Known Allergies Allergy Verified 04/18/20 17:33
[2020-07-06 22:00] VITALS: BP 144/89; PULSE 75; RESP 18; TEMP 37.2; O2SAT 96
[2020-07-06 22:58] LABS: Anion Gap 1 mmol/L (8-16); Blood Urea Nitrogen 35 mg/dL (7-17); Calcium 8.7 mg/dL (8.4-10.2); Carbon Dioxide 31 mmol/L (22-30); Chloride 106 mmol/L (98-107); Estimated CRCL calculation 35 ml/min; Estimated Glomerular Filt Rate 38; Glucose 108 mg/dL (65-105); Magnesium 2.1 mg/dL (1.6-2.3); Potassium 4.4 mmol/L (3.4-5.0); Sodium 138 mmol/L (137-145)
[2020-07-06 23:04] LABS: Creatine Kinase 2172 U/L (30-135)
[2020-07-06 23:12] LABS: Valproic Acid 58.9 ug/mL (50-120)
[2020-07-06 23:31] LABS: Procalcitonin 0.1 ng/mL
[2020-07-06] MEDS: QUEtiapine FUMARATE 100 MG TABLET 300 MG PO (23:47)
[2020-07-06] MEDS: DONEPEZIL HCL 10 MG TABLET PO (23:48)
[2020-07-07] VITALS (8 sets, daily range): BP systolic 123–137; BP diastolic 51–56; PULSE 62–80; RESP 16; TEMP 36–36.2; O2SAT 98–100
[2020-07-07] MEDS: LACTATED RINGERS 1,000 ML 75 ML IV CONT
[2020-07-07 01:50] LABS: Amphetamine Screen Urine Negative (Negative); Barbiturate Screen Urine Negative (Negative); Benzodiazepines Screen Urine Negative (Negative); Cannabinoid Screen Urine Negative (Negative); Cocaine Screen Urine Negative (Negative); Methadone Screen Urine Negative (Negative); Opiate Screen Urine Negative (Negative); Phencyclidine Screen Urine Negative (Negative)
[2020-07-07 05:45] LABS: Hematocrit 30.6 % (37.0-47.0); Hemoglobin 9.9 g/dL (12.0-15.0); Mean Corpuscular HGB Conc 32.4 g/dl (32-36); Mean Corpuscular Hemoglobin 33.6 pg (26-34); Mean Corpuscular Volume 103.7 fl (80-100); Mean Platelet Volume 10.5 fl (7.4-10.4); Platelet Count Result 205 k/mm3 (150-375); Red Blood Count 2.95 M/mm3 (4.2-5.4); Red Cell Distribution Width 16.6 % (11.5-14.5); White Blood Count 9.1 K/mm3 (4.5-10.0)
[2020-07-07 05:56] LABS: Alanine Aminotransferase 17 U/L (4-35); Albumin Level 2.4 g/dL (3.5-5.1); Alkaline Phosphatase 63 U/L (38-126); Anion Gap -1 mmol/L (8-16); Aspartate Amino Transferase 65 U/L (14-36); Bilirubin,Total < 0.1 mg/dL (0.2-1.3); Blood Urea Nitrogen 30 mg/dL (7-17); Calcium 8.3 mg/dL (8.4-10.2); Carbon Dioxide 32 mmol/L (22-30); Chloride 108 mmol/L (98-107); Estimated CRCL calculation 38 ml/min; Estimated Glomerular Filt Rate 42; Glucose 83 mg/dL (65-105); Potassium 4.1 mmol/L (3.4-5.0); Sodium 139 mmol/L (137-145)
[2020-07-07 06:00] LABS: D Dimer 0.42 ug/mL (<0.48)
[2020-07-07] MEDS: LEVOTHYROXINE SODIUM 50 MCG TABLET PO (06:00)
[2020-07-07 06:03] LABS: Creatine Kinase 1453 U/L (30-135)
[2020-07-07] MEDS: DIVALPROEX SODIUM SPRINKLE 125 MG CAP.DR 375 MG PO ×3 (08:44→16:54)
[2020-07-07] MEDS: ASPIRIN 81 MG CHEWABLE TABLET PO (08:45)
[2020-07-07] MEDS: HALOPERIDOL 1 MG TABLET 2 MG PO ×2 (08:45→16:53)
[2020-07-07] MEDS: ESCITALOPRAM OXALATE 10 MG TABLET PO (08:45)
[2020-07-07] MEDS: QUEtiapine FUMARATE 100 MG TABLET 300 MG PO ×2 (08:45→21:27)
[2020-07-07] MEDS: busPIRone HCL 10 MG TABLET PO ×3 (08:46→16:54)
[2020-07-07] MEDS: MEMANTINE 10 MG TABLET PO ×2 (08:46→16:53)
--- NOTE | 2020-07-07 15:08 | PM.IMPN ---
Progress Note: A&P Assessment and Plan (1) Unresponsive episode: Code(s): R41.89 - Other symptoms and signs involving cognitive functions and awareness Status: Acute Assessment and Plan: The patient brought to ED after she was found unresponsive and was reportedly hypoxic and hypotensive on EMS arrival. TCK level and lactic acid levels elevated. Brain CT no acute findings. UA consistent with UTI. CXR more likely atelectasis and not PNA. Consider unrecognized seizure or sepsis. Speech therapy evaluated the patient and felt there were no swallowing issues. UDS negative. Continue current treatment plan. Check EEG. Consider MRI. Follow up on culture results and continue abx. (2) Rhabdomyolysis: Code(s): M62.82 - Rhabdomyolysis Status: Acute Assessment and Plan: Total creatinine kinase is 2172. Etiology unclear. Consider unrecognized seizures. Consider transient hypotension. With the IV fluids, total CK is 1453. This could be contributing to her acute kidney injury. Continue to trend. (3) Urinary tract infection: Code(s): N39.0 - Urinary tract infection, site not specified Status: Acute Assessment and Plan: UA noted. This was a catheterized specimen contributing to some of the blood in the urine. Cultures are pending. Continue Rocephin. (4) Acute on chronic kidney failure: Code(s): N17.9 - Acute kidney failure, unspecified; N18.9 - Chronic kidney disease, unspecified Status: Acute Assessment and Plan: Baseline creatinine around 1.1. Creatinine 1.8 on admission. She takes lisinopril at half-way. Currently on IV fluids. Creatinine is trending downward as expected. Could be related to the rhabdomyolysis. Continue to monitor renal function. Continue IV fluids. (5) Elevated lactic acid level: Code(s): R79.89 - Other specified abnormal findings of blood chemistry Status: Acute Assessment and Plan: Lactic acid elevated 3.2 but normalized on repeat. Procalcitonin level normal. Probably related to the transient hypotension. Continue to follow. (6) Alzheimer's dementia: Code(s): G30.9 - Alzheimer's disease, unspecified; F02.80 - Dementia in other diseases classified elsewhere without behavioral disturbance Status: Chronic Assessment and Plan: Patient with dementia. She is on Aricept and Namenda which have been continued. Continue Lexapro for depression. Continue BuSpar for anxiety. (7) Schizophrenia: Code(s): F20.9 - Schizophrenia, unspecified Status: Chronic Assessment and Plan: Patient with schizophrenia. She is alert but her speech is nonsensical. Difficult to evaluate. Valproic acid level within normal range. Continue Depakote and Haldol. (8) Macrocytic anemia: Code(s): D53.9 - Nutritional anemia, unspecified Status: Acute Assessment and Plan: MCV elevated to 104. B12 and Folate normal in April. Probably related to the Depakote. Consider myelodysplastic syndrome. (9) Hypothyroidism: Code(s): E03.9 - Hypothyroidism, unspecified Status: Chronic Assessment and Plan: TSH normal. Continue levothyroxine. (10) Hypertension: Code(s): I10 - Essential (primary) hypertension Status: Chronic Assessment and Plan: Patient's blood pressure was reviewed on 07/07 Blood pressure remains well controlled. Home lisinopril remains on hold. Continue to monitor. (11) DVT prophylaxis: Code(s): Z29.9 - Encounter for prophylactic measures, unspecified Status: Acute Assessment and Plan: Lovenox Subjective Date/time seen: 07/07/20 15:08 Interval history: 60yo female with dementia, schizophrenia, CKD and HTN who is brought to the ED from [facility] after she was found unresponsive. Patient alert but confused so unable to provide hx. Exam Narrative: E
[2020-07-07] MEDS: LACTATED RINGERS 1,000 ML 100 ML IV CONT (16:55)
[2020-07-07] MEDS: ENOXAPARIN 40 MG/0.4 ML SYRINGE SUB-Q (16:57)
[2020-07-07] MEDS: DONEPEZIL HCL 10 MG TABLET PO (21:27)
[2020-07-08] MEDS: LACTATED RINGERS 1,000 ML 100 ML IV CONT (02:13)
[2020-07-08 05:35] LABS: Basophils Absolute Auto 0.1 K/mm3 (0.0-0.1); Basophils Percent Auto 0.8 % (0.2-1.2); Eosinophils Absolute Auto 0.2 K/mm3 (0-0.3); Eosinophils Percent Auto 2.1 % (0-4.4); Hematocrit 31.4 % (37.0-47.0); Immature Granulocyte Absolute 0.04 K/mm3 (0.00-0.031); Immature Granulocyte Percent A 0.5 % (0-0.5); Lymphocytes Absolute Auto 4.24 K/mm3 (0.9-3.2); Lymphocytes Percent Auto 56.7 % (18.3-44.2); Mean Corpuscular HGB Conc 31.8 g/dl (32-36); Mean Corpuscular Hemoglobin 32.8 pg (26-34); Mean Platelet Volume 10.5 fl (7.4-10.4); Monocytes Absolute Auto 0.6 K/mm3 (0.1-0.6); Monocytes Percent Auto 7.6 % (2.6-8.5); Neutrophils Absolute Auto 2.4 K/mm3 (1.3-6.7); Neutrophils Percent Auto 32.3 % (45.5-73.1); Platelet Count Result 221 k/mm3 (150-375); Red Blood Count 3.05 M/mm3 (4.2-5.4); Red Cell Distribution Width 16.2 % (11.5-14.5); White Blood Count 7.5 K/mm3 (4.5-10.0)
[2020-07-08 05:52] LABS: Albumin Level 2.6 g/dL (3.5-5.1); Anion Gap -1 mmol/L (8-16); Blood Urea Nitrogen 20 mg/dL (7-17); Calcium 8.9 mg/dL (8.4-10.2); Carbon Dioxide 36 mmol/L (22-30); Chloride 104 mmol/L (98-107); Creatine Kinase 925 U/L (30-135); Estimated CRCL calculation 41 ml/min; Estimated Glomerular Filt Rate 46; Glucose 70 mg/dL (65-105); Magnesium 1.9 mg/dL (1.6-2.3); Phosphorus 2.5 mg/dL (2.5-4.5); Sodium 139 mmol/L (137-145)
[2020-07-08 06:00] VITALS: BP 149/86; PULSE 93; RESP 18; TEMP 36.1; O2SAT 98
[2020-07-08] MEDS: LEVOTHYROXINE SODIUM 50 MCG TABLET PO (06:03)
[2020-07-08 06:28] LABS: HIV 1/2 Ab P24 Ag Result Negative (Negative)
[2020-07-08 07:47] VITALS: O2SAT 93
[2020-07-08] MEDS: ENOXAPARIN 40 MG/0.4 ML SYRINGE SUB-Q (08:08)
[2020-07-08] MEDS: busPIRone HCL 10 MG TABLET PO ×3 (08:09→16:16)
[2020-07-08] MEDS: ESCITALOPRAM OXALATE 10 MG TABLET PO (08:09)
[2020-07-08] MEDS: ASPIRIN 81 MG CHEWABLE TABLET PO (08:09)
[2020-07-08] MEDS: DIVALPROEX SODIUM SPRINKLE 125 MG CAP.DR 375 MG PO ×3 (08:09→16:16)
[2020-07-08] MEDS: QUEtiapine FUMARATE 100 MG TABLET 300 MG PO ×2 (08:09→21:35)
[2020-07-08] MEDS: HALOPERIDOL 1 MG TABLET 2 MG PO ×2 (08:09→16:16)
[2020-07-08] MEDS: MEMANTINE 10 MG TABLET PO ×2 (08:10→16:16)
[2020-07-08 14:00] VITALS: BP 143/77; PULSE 73; RESP 20; TEMP 36.6; O2SAT 99
--- NOTE | 2020-07-08 14:32 | PM.IMPN ---
Progress Note: A&P Assessment and Plan (1) Unresponsive episode: Code(s): R41.89 - Other symptoms and signs involving cognitive functions and awareness Status: Acute Assessment and Plan: The patient brought to ED after she was found unresponsive and was reportedly hypoxic and hypotensive on EMS arrival. TCK level and lactic acid levels elevated. Brain CT no acute findings. UA consistent with UTI. CXR more likely atelectasis and not PNA. Consider unrecognized seizure; sepsis felt less likely. Speech therapy evaluated the patient and felt there were no swallowing issues. UDS negative. EEG ordered. Continue current treatment plan. Consider MRI. Neuro consult. (2) Rhabdomyolysis: Code(s): M62.82 - Rhabdomyolysis Status: Acute Assessment and Plan: Total creatinine kinase is 2172. Etiology unclear. Consider unrecognized seizures. Consider transient hypotension. With the IV fluids, total CK is 925 today. This could be contributing to her acute kidney injury. Continue to trend. (3) Acute on chronic kidney failure: Code(s): N17.9 - Acute kidney failure, unspecified; N18.9 - Chronic kidney disease, unspecified Status: Acute Assessment and Plan: Baseline creatinine around 1.1. Creatinine 1.8 on admission. She takes lisinopril at [facility]. Currently on IV fluids. Creatinine is trending downward as expected. Could be related to the rhabdomyolysis. Continue to monitor renal function. Continue IV fluids one more day. (4) Elevated lactic acid level: Code(s): R79.89 - Other specified abnormal findings of blood chemistry Status: Acute Assessment and Plan: Lactic acid elevated 3.2 but normalized on repeat. Procalcitonin level normal. Probably related to the transient hypotension. Continue to follow. (5) Alzheimer's dementia: Code(s): G30.9 - Alzheimer's disease, unspecified; F02.80 - Dementia in other diseases classified elsewhere without behavioral disturbance Status: Chronic Assessment and Plan: Patient with dementia. She is on Aricept and Namenda which have been continued. Continue Lexapro for depression. Continue BuSpar for anxiety. (6) Schizophrenia: Code(s): F20.9 - Schizophrenia, unspecified Status: Chronic Assessment and Plan: Patient with schizophrenia. She is alert but her speech is nonsensical. Valproic acid level within normal range. Continue Depakote and Haldol. (7) Macrocytic anemia: Code(s): D53.9 - Nutritional anemia, unspecified Status: Acute Assessment and Plan: MCV elevated to 104. B12 and Folate normal in April. Probably related to her medication. Consider myelodysplastic syndrome. (8) Hypothyroidism: Code(s): E03.9 - Hypothyroidism, unspecified Status: Chronic Assessment and Plan: TSH normal. Continue levothyroxine. (9) Hypertension: Code(s): I10 - Essential (primary) hypertension Status: Chronic Assessment and Plan: Patient's blood pressure was reviewed on 07/08 Blood pressure remains well controlled. Will continue to hold lisinopril. Continue to monitor. (10) DVT prophylaxis: Code(s): Z29.9 - Encounter for prophylactic measures, unspecified Status: Acute Assessment and Plan: Lovenox (11) Urinary tract infection: Code(s): N39.0 - Urinary tract infection, site not specified Status: Acute Assessment and Plan: UA noted. This was a catheterized specimen contributing to some of the blood in the urine. Urine Cx negative. Stop Rocephin. UTI RULED OUT Subjective Date/time seen: 07/08/20 14:32 Interval history: 60yo female with dementia, schizophrenia, CKD and HTN who is brought to the ED from [facility] after she was found unresponsive. Patient alert but confused so unable to provide hx. Review of Systems Review of System
[2020-07-08] MEDS: LACTATED RINGERS 1,000 ML 70 ML IV CONT (14:46)
[2020-07-08 20:59] VITALS: BP 145/66; PULSE 64; RESP 18; TEMP 36.1; O2SAT 95
[2020-07-08] MEDS: DONEPEZIL HCL 10 MG TABLET PO (21:36)
[2020-07-09] MEDS: LACTATED RINGERS 1,000 ML 70 ML IV CONT (05:04)
[2020-07-09 05:55] VITALS: BP 130/89; PULSE 56; RESP 18; TEMP 36.1; O2SAT 96
[2020-07-09] MEDS: LEVOTHYROXINE SODIUM 50 MCG TABLET PO (06:21)
[2020-07-09 07:57] VITALS: O2SAT 92
[2020-07-09] MEDS: ESCITALOPRAM OXALATE 10 MG TABLET PO (08:05)
[2020-07-09] MEDS: ENOXAPARIN 40 MG/0.4 ML SYRINGE SUB-Q (08:05)
[2020-07-09] MEDS: busPIRone HCL 10 MG TABLET PO ×3 (08:05→16:59)
[2020-07-09] MEDS: DIVALPROEX SODIUM SPRINKLE 125 MG CAP.DR 375 MG PO ×3 (08:05→16:59)
[2020-07-09] MEDS: HALOPERIDOL 1 MG TABLET 2 MG PO ×2 (08:05→16:59)
[2020-07-09] MEDS: MEMANTINE 10 MG TABLET PO ×2 (08:05→16:59)
[2020-07-09] MEDS: QUEtiapine FUMARATE 100 MG TABLET 300 MG PO (08:05)
[2020-07-09] MEDS: ASPIRIN 81 MG CHEWABLE TABLET PO (08:05)
[2020-07-09 08:11] LABS: Alanine Aminotransferase 17 U/L (4-35); Albumin Level 2.7 g/dL (3.5-5.1); Alkaline Phosphatase 54 U/L (38-126); Anion Gap 0 mmol/L (8-16); Aspartate Amino Transferase 52 U/L (14-36); Bilirubin,Total 0.4 mg/dL (0.2-1.3); Blood Urea Nitrogen 17 mg/dL (7-17); Calcium 8.7 mg/dL (8.4-10.2); Carbon Dioxide 32 mmol/L (22-30); Chloride 105 mmol/L (98-107); Creatine Kinase 390 U/L (30-135); Estimated CRCL calculation 54 ml/min; Estimated Glomerular Filt Rate > 60; Glucose 62 mg/dL (65-105); Potassium 4.5 mmol/L (3.4-5.0); Sodium 137 mmol/L (137-145)
--- NOTE | 2020-07-09 09:40 | WPDNEURCNPN ---
Assessment and Plan Assessment and plan (1) Unresponsive episode: Code(s): R41.89 - Other symptoms and signs involving cognitive functions and awareness Status: Acute Additional Plan underlying dementia with schizophrenia and complain of unresponsiveness only routine EEG will be recommended the CT scan of the head is normal Consult date: 07/09/20 Time Seen: 09:30 HPI: Vicki Proctor is a 60 year old female admitted to the hospital for the complaints of unresponsiveness in addition to the ongoing history of 1. Schizophrenia 2. Dementia 3. Hypothyroidism 4. Chronic kidney disease 5. Hypertension she was brought to the emergency room via ambulance from [facility] after she was found unresponsive at the time of initial evaluation she was at her baseline that is alert and oriented x1 with underlying dementia and was not noted Susie a good historian further information was obtained from the electronic records past history is consistent with the anxiety chronic kidney disease stage 3 along with the hypertension hypothyroidism which schizophrenia and macrocytic anemia evaluation up until now revealed her to have mildly anemic, UA abnormal with protein urea glycosuria and 3+ leukocyte Estrace more than 75 wbc's toxicology screen negative and the serology for the COVID pending though negative for HIV Review of Systems Review of Systems: All systems reviewed & are unremarkable except as noted in HPI and below PMFSH Past Medical History Medical History Alzheimer's dementia Anxiety Chronic kidney disease, stage 3 Baseline creatinine is around 1.10 she she. She okay are asking Dr. Babcock that on her way up to see her on but all passed along palpate Hypertension Hypothyroidism Macrocytic anemia Schizophrenia Surgical History Surgical History Surgical history unknown Family History Family History Mother Lung cancer Father Esophageal cancer Son Chronic mental illness Social History Social History Social History: The patient resides at [facility]. She has 3 children, but it does not sound as though they keep in touch. She smoked for a brief period of time when she was in her teenage years. No alcohol or illicit substance use. The patient's sister Gillian Cooney is listed in the computer as her emergency contact. I did speak with Emilee who reports that the patient's daughter, Claudia Reyes, would likely be her next of kin and surrogate decision maker, however. The patient is a full code at this time. Smoking status: Smoker, status unknown Alcohol intake: unknown Substance use: unknown Spiritual care concerns: No Meds Home Medications and Allergies Home Medications Medication Instructions Recorded Confirmed Type aspirin 81 mg PO DAILY 04/18/20 07/06/20 History buspirone 10 mg PO TID 04/18/20 07/06/20 History divalproex [Depakote Sprinkles] 375 mg PO TID 04/18/20 07/06/20 History donepezil 10 mg PO DAILY 04/18/20 07/06/20 History ergocalciferol (vitamin D2) 1,250 mcg PO WEEKLY 04/18/20 07/06/20 History [Vitamin D2] escitalopram oxalate 10 mg PO DAILY 04/18/20 07/06/20 History haloperidol 2 mg PO BID 04/18/20 07/06/20 History levothyroxine 50 mcg PO DAILY 04/18/20 07/06/20 History lisinopril 2.5 mg PO DAILY 04/18/20 07/06/20 History memantine 10 mg PO BID 04/18/20 07/06/20 History quetiapine 300 mg PO BID 07/06/20 07/06/20 History Allergies Allergy/AdvReac Type Severity Reaction Status Date / Time No Known Allergies Allergy Verified 04/18/20 17:33 Vital Signs Vital Signs - 24 hr 07/08/20 14:00 07/08/20 20:59 07/09/20 05:55 Temperature 36.6 C 36.1 C L 36.1 C L Pulse Rate 73 64 56 L Respiratory Rate 20 18 18 Blood Pressure 143/77 H 145/66 H 130/89 Pulse Oxim
[2020-07-09 13:55] LABS: SARS-CoV-2 RNA PCR Negative
[2020-07-09 14:05] VITALS: BP 121/74; PULSE 63; RESP 16; TEMP 35.8; O2SAT 96
--- NOTE | 2020-07-09 15:15 | PM.DS ---
DS: Admitting Diagnosis Admitting Diagnosis Admitting Diagnosis: Altered mental status DS: Discharge Diagnosis Discharge Diagnosis (1) Unresponsive episode: Code(s): R41.89 - Other symptoms and signs involving cognitive functions and awareness Status: Acute Assessment and Plan: The patient brought to ED after she was found unresponsive and was reportedly hypoxic and hypotensive on EMS arrival. TCK level and lactic acid levels elevated. Brain CT no acute findings. UCx negative for UTI. CXR more likely atelectasis and not PNA. Consider unrecognized seizure; sepsis felt less likely. Speech therapy evaluated the patient and felt there were no swallowing issues. UDS negative. EEG ordered but not able to be obtained. Neurology consulted. No plans for adding another anti-epileptic. Neurology felt EEG could be done as outpatient and okay for discharge. (2) Rhabdomyolysis: Code(s): M62.82 - Rhabdomyolysis Status: Acute Assessment and Plan: Total creatinine kinase is 2172. Etiology unclear. Consider unrecognized seizures. Consider transient hypotension. With the IV fluids, total CK is 390 today. This could be contributing to her acute kidney injury. (3) Acute on chronic kidney failure: Code(s): N17.9 - Acute kidney failure, unspecified; N18.9 - Chronic kidney disease, unspecified Status: Acute Assessment and Plan: Baseline creatinine around 1.1. Creatinine 1.8 on admission. She takes lisinopril at care home and this was held. She was started on IV fluids. Could be related to the rhabdomyolysis vs ATN from the [facility]. Creatinine trended to normal. (4) Elevated lactic acid level: Code(s): R79.89 - Other specified abnormal findings of blood chemistry Status: Acute Assessment and Plan: Lactic acid elevated 3.2 but normalized on repeat. Procalcitonin level normal. Probably related to the transient hypotension. (5) Alzheimer's dementia: Code(s): G30.9 - Alzheimer's disease, unspecified; F02.80 - Dementia in other diseases classified elsewhere without behavioral disturbance Status: Chronic Assessment and Plan: Patient with dementia. She is on Aricept and Namenda which have been continued. We continued Lexapro for depression. We continued her BuSpar for anxiety. (6) Schizophrenia: Code(s): F20.9 - Schizophrenia, unspecified Status: Chronic Assessment and Plan: Patient with schizophrenia. She is alert but her speech is nonsensical. Valproic acid level within normal range. Continue Depakote and Haldol. (7) Macrocytic anemia: Code(s): D53.9 - Nutritional anemia, unspecified Status: Acute Assessment and Plan: MCV elevated to 104. B12 and Folate normal in April. Probably related to her medication. Consider myelodysplastic syndrome. (8) Hypothyroidism: Code(s): E03.9 - Hypothyroidism, unspecified Status: Chronic Assessment and Plan: TSH normal. We continued her levothyroxine. (9) Hypertension: Code(s): I10 - Essential (primary) hypertension Status: Chronic Assessment and Plan: Patient's blood pressure was monitored closely. Blood pressure remained well controlled. We held her lisinopril due to the THANH and hypotension. It is a low dose so this was not continued. (10) Urinary tract infection: Code(s): N39.0 - Urinary tract infection, site not specified Status: Acute Assessment and Plan: UA noted. This was a catheterized specimen contributing to some of the blood in the urine. Urine Cx negative. Stop Rocephin. UTI RULED OUT. DS: Summary Hospital Course Reason for hospitalization: 60yo female with dementia, schizophrenia, CKD and HTN who is brought to the ED from [facility] after she was found unresponsive. Please see H&P for details. Hospital Course: Please see above for
== END 2020-07-09 17:38 | DRG 861 ==
LOC: ANHED 14:00 → ANH2MED 14:48
PROVIDERS: Physician Assistant; Admitting Provider Family Medicine; Emergency Provider Emergency Medicine; Visit Provider Internal Medicine
DX: R41.89 Other symptoms and signs involving cognitive functions and awareness (principal); Z20.822 Contact with and (suspected) exposure to COVID-19; M62.82 Rhabdomyolysis; N17.9 Acute kidney failure, unspecified; R79.89 Other specified abnormal findings of blood chemistry; I12.9 Hypertensive chronic kidney disease with stage 1 through stage 4 chronic kidney disease, or unspecified chronic kidney disease; N18.30 Chronic kidney disease, stage 3 unspecified; E03.9 Hypothyroidism, unspecified; G30.9 Alzheimer's disease, unspecified; F02.80 Dementia in other diseases classified elsewhere, unspecified severity, without behavioral disturbance, psychotic disturbance, mood disturbance, and anxiety; F20.9 Schizophrenia, unspecified; D53.9 Nutritional anemia, unspecified; Z79.899 Other long term (current) drug therapy
CPT/HCPCS: 36415; 36600; 51701; 70450; 71045; 80048; 80053; 80069; 80164; 80307; 81001; 82140; 82550; 82805; 82948; 83605; 83735; 84145; 84443; 85025; 85027; 85380; 85610; 85730; 86703; 87040; 87086; 92610; 93005; 96365; 97162; 97165; 99285; A9270; C9803; G0432; J0456; J0696; J1650; J7030; J7120; U0003; U0005

== ENCOUNTER 2020-07-11 12:52 | Observation (INO) | payer BC, SELFPAY ==
--- NOTE | ~2020-07-11 | CT_ITS ---
EXAMINATION: CT brain wo con EXAM DATE: 07/11/2020 13:15 INDICATION: Altered mental status, transient change in awareness. TECHNIQUE: Spiral CT of the head was performed without contrast. Axial, coronal and sagittal images were reviewed. The dose-length product (DLP) for this examination was 605.33 mGy-cm. The exposure w as tailored according to patient size, and iterative reconstruction (ASIR) was used as additional dos e reduction technique. Comparison is made to prior examination from 07/06/2020. FINDINGS: There is no acute intraparenchymal hemorrhage. No evidence of intraparenchymal brain mass lesion. No evidence of acute infarction. Please note that initial head CT has limited sensitivity f or small or acute infarctions. There is mild to moderate periventricular and subcortical hypodensity, nonspecific but probably related to small vessel ischemic disease. There is moderate to severe pro minence of the sulci and ventricles related to cerebral atrophy. There is intracranial carotid laurel riosclerosis. There are no extra-axial collections. There is no mass effect or midline shift. The orbits are unremarkable. Soft tissue is unremarkable. The visualized sinuses and mastoid air cells are well aerated. There is no significant interval change. IMPRESSION: 1. No acute intracranial findings. 2. Chronic age related findings. Reviewed, dictated and finalized at location B.
--- NOTE | ~2020-07-11 | XR_ITS ---
EXAMINATION: XR chest 1V EXAM DATE: 07/11/2020 13:17 INDICATION: Transient level of awareness. TECHNIQUE: Portable AP frontal chest x-ray was obtained. Comparison is made to prior examination from 07/06/2020. FINDINGS: The lungs are clear. There are no pleural effusions. Cardiac silhouette is prominent but magnified on this AP technique. There is no pneumothorax suspected. The bones and soft tissues are unremarkable. IMPRESSION: No acute cardiopulmonary findings. Reviewed, dictated and finalized at location B.
[2020-07-11 12:54] VITALS: BP 155/83; PULSE 67; RESP 18; TEMP 37.1; O2SAT 99
--- NOTE | 2020-07-11 12:55 | ECG_ITS ---
Measurements Intervals [place] Rate: 69 P: 36 CO: 162 QRS: 15 QRSD: 86 T: 42 QT: 384 QTc: 411 Interpretive Statements SINUS RHYTHM ANTEROSEPTAL INFARCT, AGE INDETERMINATE BASELINE ARTIFACT- I, II, III ABNORMAL ECG Electronically Signed On 07-11-2020 13:31:27 CDT by Vinayak Chong D.O.
[2020-07-11 13:07] LABS: Glucose Point of Care 80 (65-105)
[2020-07-11 13:08] LABS: Basophils Absolute Auto 0.1 K/mm3 (0.0-0.1); Basophils Percent Auto 0.8 % (0.2-1.2); Eosinophils Absolute Auto 0.2 K/mm3 (0-0.3); Eosinophils Percent Auto 2.9 % (0-4.4); Hemoglobin 11.4 g/dL (12.0-15.0); Immature Granulocyte Absolute 0.04 K/mm3 (0.00-0.031); Immature Granulocyte Percent A 0.5 % (0-0.5); Lymphocytes Absolute Auto 2.98 K/mm3 (0.9-3.2); Lymphocytes Percent Auto 38.8 % (18.3-44.2); Mean Corpuscular HGB Conc 32.6 g/dl (32-36); Mean Corpuscular Hemoglobin 32.9 pg (26-34); Mean Corpuscular Volume 101.2 fl (80-100); Mean Platelet Volume 9.9 fl (7.4-10.4); Monocytes Absolute Auto 0.7 K/mm3 (0.1-0.6); Monocytes Percent Auto 9.2 % (2.6-8.5); Neutrophils Absolute Auto 3.7 K/mm3 (1.3-6.7); Neutrophils Percent Auto 47.8 % (45.5-73.1); Platelet Count Result 234 k/mm3 (150-375); Red Blood Count 3.46 M/mm3 (4.2-5.4); Red Cell Distribution Width 16.4 % (11.5-14.5); White Blood Count 7.7 K/mm3 (4.5-10.0)
--- NOTE | 2020-07-11 13:13 | ED.GENADULT ---
HPI - General Adult General Chief complaint: Seizure <Miguel Stack PA-C - Last Filed: 07/11/20 15:21> Stated complaint: SZ <Miguel Stack PA-C - Last Filed: 07/11/20 15:21> Source: EMS, RN notes reviewed and old records reviewed <Miguel Stack PA-C - Last Filed: 07/11/20 15:21> Mode of arrival: EMS <Miguel Stack PA-C - Last Filed: 07/11/20 15:21> Limitations: altered mental status <Miguel Stack PA-C - Last Filed: 07/11/20 15:21> History of Present Illness HPI narrative: Patient is a 60-year-old female who presents to emergency department after having seizure-like activity just prior to arrival patient was eating when she had seizure-like activity on the ground described as tonic-clonic. Patient with history of possible seizure in the past also has a history of schizophrenia and dementia. Patient has had [facility] where she is followed by Dr. Sy. patient on arrival is in no distress does not appear uncomfortable is alert and oriented x1 which is apparently her baseline. Discussion was made with the nurse taking care of the patient at the alf who confirms that the patient is normally ANO x1 and received her medications today. Patient was released from the hospital upon reviewing the documentation for the similar findings the last 2 days <Miguel Stack PA-C - Last Filed: 07/11/20 15:21> Related Data Home medications: Home Medications Medication Instructions Recorded Confirmed aspirin 81 mg PO DAILY 04/18/20 07/06/20 buspirone 10 mg PO TID 04/18/20 07/06/20 divalproex [Depakote Sprinkles] 375 mg PO TID 04/18/20 07/06/20 donepezil 10 mg PO DAILY 04/18/20 07/06/20 ergocalciferol (vitamin D2) 1,250 mcg PO WEEKLY 04/18/20 07/06/20 [Vitamin D2] escitalopram oxalate 10 mg PO DAILY 04/18/20 07/06/20 haloperidol 2 mg PO BID 04/18/20 07/06/20 levothyroxine 50 mcg PO DAILY 04/18/20 07/06/20 memantine 10 mg PO BID 04/18/20 07/06/20 quetiapine 300 mg PO BID 07/06/20 07/06/20 <Miguel Stack PA-C - Last Filed: 07/11/20 15:21> Allergies/adverse reactions: Allergies Allergy/AdvReac Type Severity Reaction Status Date / Time No Known Allergies Allergy Verified 04/18/20 17:33 <Miguel Stack PA-C - Last Filed: 07/11/20 15:21> Review of Systems Review of Systems: ROS unobtainable: Yes unobtainable due to medical condition <Miguel Stack PA-C - Last Filed: 07/11/20 15:21> [facility] Past Medical History Medical History: Medical History Alzheimer's dementia Anxiety Chronic kidney disease, stage 3 Baseline creatinine is around 1.10 she she. She okay are asking Dr. Babcock that on her way up to see her on but all passed along palpate Hypertension Hypothyroidism Macrocytic anemia Schizophrenia <Miguel Stack PA-C - Last Filed: 07/11/20 15:21> Surgical History Surgical History: Surgical History Surgical history unknown <Miguel Stack PA-C - Last Filed: 07/11/20 15:21> Family History Family History: Family History Mother Lung cancer Father Esophageal cancer Son Chronic mental illness <Miguel Stack PA-C - Last Filed: 07/11/20 15:21> Social History Social History: Social History Social History: The patient resides at [facility]. She has 3 children, but it does not sound as though they keep in touch. She smoked for a brief period of time when she was in her teenage years. No alcohol or illicit substance use. The patient's sister Gillian oConey is listed in the computer as her emergency contact. I did speak with Emilee who reports that the patient's daughter, Claudia Reyes, would likely be her next of kin and surrogate decision maker, however. The remigio
[2020-07-11 13:21] LABS: Alanine Aminotransferase 29 U/L (4-35); Albumin Level 3.2 g/dL (3.5-5.1); Alkaline Phosphatase 78 U/L (38-126); Anion Gap 3 mmol/L (8-16); Aspartate Amino Transferase 52 U/L (14-36); Bilirubin,Total 0.1 mg/dL (0.2-1.3); Blood Urea Nitrogen 19 mg/dL (7-17); Calcium 9.1 mg/dL (8.4-10.2); Carbon Dioxide 36 mmol/L (22-30); Chloride 101 mmol/L (98-107); Estimated CRCL calculation 53 ml/min; Estimated Glomerular Filt Rate 50; Glucose 92 mg/dL (65-105); Potassium 4.4 mmol/L (3.4-5.0); Sodium 140 mmol/L (137-145)
[2020-07-11 13:33] LABS: Partial Thromboplastin Time 26.1 SECONDS (22.3-36.8); Prothrombin Time 13.9 Seconds (11.1-14.7)
[2020-07-11 13:40] LABS: Troponin I < 0.012 ng/mL (0.000-0.034)
[2020-07-11 13:43] LABS: Valproic Acid 82.9 ug/mL (50-120)
[2020-07-11] MEDS: SODIUM CHLORIDE 0.9% IV 1,000 ML 999 ML IV CONT (13:44)
[2020-07-11 13:49] LABS: Add Urine Microscopic? NO; Appearance Urine Clear (Clear); Bilirubin Urine Negative (Negative); Blood Urine Negative (Negative); Color Urine Yellow (Yellow); Glucose Urine UA Negative (Negative); Ketones Urine Negative (Negative); Leukocyte Esterase Ur Negative LEU/UL (Negative); Nitrate Urine Negative (Negative); Protein Urine Negative (Negative); Specific Grav Ur 1.011 (1.001-1.035); Urobilinogen Urine Negative mg/dL (<2.0)
[2020-07-11] MEDS: levETIRAcetam 1000MG/NACL100ML 1,000 MG/100 ML BAG 400 MG IVPB (14:41)
[2020-07-11 14:42] VITALS: BP 132/78; PULSE 68; RESP 18; O2SAT 99
--- NOTE | 2020-07-11 15:30 | PM.IMHP ---
H&P: HPI History of Present Illness Date/Time: 07/11/20 15:30 Chief Complaint: Seizure-like activity. Narrative: This is a 60-year-old female with dementia, schizophrenia, hypothyroidism, chronic kidney disease, and hypertension who presented to the emergency department earlier today via EMS from [facility] for evaluation of seizure-like activity. I am familiar with the patient she seems to be at her baseline at this time which is oriented x1. It is not uncommon for the patient to ramble nonsensically with echolalia. I actually admitted the patient to the hospital on July 06 after she was found unresponsive in her room and at that time I thought perhaps she may have had a seizure as her total CK and lactic acid levels were elevated. Brain CT was unremarkable and neurology felt it would be appropriate for the patient to have an EEG as an outpatient. She is on Depakote sprinkles but not at a dose that 1 would use for an anti seizure medication and I assume she takes this for her underlying mental. In any event she was brought in today after she reportedly had a witnessed tonic-clonic seizure. As above, she seems to be at her baseline at the time my evaluation. She cannot provide any history which is per usual. She has no complaints this time. Review of Systems Review of Systems: Narrative: Unable to be obtained given the patient's chronic condition as detailed above. I do not think she fully understands the questions I ask of her and she will only intermittently follow commands. Again, she speaks nonsensically and frequently repeats the same question that I ask of her. [facility] Past Medical History Medical History (Updated 07/11/20 @ 20:14 by Lissa Delong PA-C) Alzheimer's dementia Anxiety Chronic kidney disease, stage 3 Baseline creatinine is around 1.10 she she. Hypertension Hypothyroidism Macrocytic anemia Schizophrenia Surgical History Surgical History Surgical history unknown Family History Family History Mother Lung cancer Father Esophageal cancer Son Chronic mental illness Social History Social History (Updated 07/11/20 @ 20:14 by Lissa Delong PA-C) Social History: The patient resides at [facility]. She has 3 children, but it does not sound as though they keep in touch. She smoked for a brief period of time when she was in her teenage years. No alcohol or illicit substance use. The patient's sister Gillian Cooney is listed in the computer as her emergency contact. I did speak with Emilee who reports that the patient's daughter, Claudia Reyes, would likely be her next of kin and surrogate decision maker, however. The patient is a full code at this time. Meds Home Medications and Allergies Home Medications Medication Instructions Recorded Confirmed Type aspirin 81 mg PO DAILY 04/18/20 07/11/20 History buspirone 10 mg PO TID 04/18/20 07/11/20 History divalproex [Depakote Sprinkles] 375 mg PO TID 04/18/20 07/11/20 History donepezil 10 mg PO DAILY 04/18/20 07/11/20 History ergocalciferol (vitamin D2) 1,250 mcg PO WEEKLY 04/18/20 07/11/20 History [Vitamin D2] escitalopram oxalate 10 mg PO DAILY 04/18/20 07/11/20 History haloperidol 2 mg PO BID 04/18/20 07/11/20 History levothyroxine 50 mcg PO DAILY 04/18/20 07/11/20 History memantine 10 mg PO BID 04/18/20 07/11/20 History quetiapine 300 mg PO BID 07/06/20 07/11/20 History Allergies Allergy/AdvReac Type Severity Reaction Status Date / Time No Known Allergies Allergy Verified 07/11/20 16:27 Vital Signs Vital Signs - 24 hr 07/11/20 12:54 07/11/20 14:42 Temperature 98.7 F Pulse Rate 67 68 Respiratory Rate 18 18 Blood Pressure 155/83 H 132/78 Pulse Oximetry 99 99 Exam Narrative: Exam Narrative: General: Chronically ill appearing female supine in bed in no distress
[2020-07-11 15:58] VITALS: BP 171/71; PULSE 66; RESP 20; TEMP 36; O2SAT 90; BMI 24.8
--- NOTE | 2020-07-11 15:58 | ADMGEN ---
This patient, Vicki Proctor, was admitted to Medical Room 343-01. Patient/family oriented to hospital policies and general routines including ID bracelet, bed and alarms, visiting hours, pain management, procedures, bathroom and other care routines, personal items, smoking policy, room service/diet, and visiting hours. Information on how to activate the Rapid Response Team has been discussed. Patient/Family are encouraged to report perceived risks to care and to ask questions if they do not understand what they are told or what they should do.
[2020-07-11 16:13] VITALS: BMI 32.0
--- NOTE | 2020-07-11 16:20 | PC.NURSE ---
Patient was brought up from ED with soaked sheets from urine and a small amount of stool that needed cleaned up. Linens changed, new depend, and vini care was given at time of arrival from this nurse and KRYS Wheatley.
[2020-07-11] MEDS: LACTATED RINGERS 1,000 ML 80 ML IV CONT (16:56)
[2020-07-11 17:21] VITALS: PULSE 63
[2020-07-11 18:07] LABS: Creatine Kinase 161 U/L (30-135)
[2020-07-11 19:50] VITALS: BP 156/76; PULSE 71; RESP 18; TEMP 36.6; O2SAT 100
[2020-07-11 20:00] VITALS: PULSE 69
[2020-07-11] MEDS: levETIRAcetam 500 MG TABLET PO (20:21)
[2020-07-11] MEDS: FAMOTIDINE 20 MG/2 ML VIAL IV PUSH (20:22)
[2020-07-12] VITALS: PULSE 63
[2020-07-12 04:00] VITALS: PULSE 50
[2020-07-12 05:52] LABS: Basophils Absolute Auto 0.1 K/mm3 (0.0-0.1); Basophils Percent Auto 1.1 % (0.2-1.2); Eosinophils Absolute Auto 0.5 K/mm3 (0-0.3); Eosinophils Percent Auto 6.4 % (0-4.4); Hematocrit 32.7 % (37.0-47.0); Hemoglobin 10.6 g/dL (12.0-15.0); Immature Granulocyte Absolute 0.02 K/mm3 (0.00-0.031); Immature Granulocyte Percent A 0.3 % (0-0.5); Lymphocytes Percent Auto 52.7 % (18.3-44.2); Mean Corpuscular HGB Conc 32.4 g/dl (32-36); Mean Corpuscular Hemoglobin 32.9 pg (26-34); Mean Corpuscular Volume 101.6 fl (80-100); Mean Platelet Volume 11.6 fl (7.4-10.4); Monocytes Absolute Auto 0.6 K/mm3 (0.1-0.6); Monocytes Percent Auto 8.4 % (2.6-8.5); Neutrophils Absolute Auto 2.2 K/mm3 (1.3-6.7); Neutrophils Percent Auto 31.1 % (45.5-73.1); Platelet Count Result 153 k/mm3 (150-375); Red Blood Count 3.22 M/mm3 (4.2-5.4); Red Cell Distribution Width 16.1 % (11.5-14.5)
[2020-07-12 06:00] VITALS: BP 149/50; PULSE 57; RESP 16; TEMP 35.9; O2SAT 96
[2020-07-12] MEDS: LACTATED RINGERS 1,000 ML 80 ML IV CONT (06:06)
[2020-07-12 06:09] LABS: Alanine Aminotransferase 27 U/L (4-35); Albumin Level 2.7 g/dL (3.5-5.1); Alkaline Phosphatase 61 U/L (38-126); Anion Gap -2 mmol/L (8-16); Aspartate Amino Transferase 49 U/L (14-36); Bilirubin,Total 0.3 mg/dL (0.2-1.3); Blood Urea Nitrogen 14 mg/dL (7-17); Calcium 8.9 mg/dL (8.4-10.2); Carbon Dioxide 33 mmol/L (22-30); Chloride 106 mmol/L (98-107); Creatine Kinase 109 U/L (30-135); Estimated CRCL calculation 64 ml/min; Estimated Glomerular Filt Rate > 60; Glucose 65 mg/dL (65-105); Potassium 4.4 mmol/L (3.4-5.0); Sodium 137 mmol/L (137-145)
[2020-07-12 06:36] LABS: Valproic Acid 45.9 ug/mL (50-120)
[2020-07-12 08:00] VITALS: PULSE 53
[2020-07-12 08:18] LABS: Free T4 Free Thyroxine Reflex 0.75 ng/dL (0.78-2.19)
--- NOTE | 2020-07-12 09:14 | PCSTNOTE ---
Please refer to the Bedside Swallow Evaluation in the EMR. Please note, silent aspiration cannot be ruled out at bedside.
[2020-07-12] MEDS: levETIRAcetam 500 MG TABLET PO (09:17)
--- NOTE | 2020-07-12 09:28 | WPDNEUROLOGY ---
Neurology EEG Report General Information Date of Study: 07/12/20 TEST EEG DIAGNOSIS seizures CONDITION OF RECORDING Lethargic EEG NUMBER [id number] CLINICAL HISTORY unable to attain any history, patient was lethargic and could not wake up enough to even give her name or date of . EEG DESCRIPTION Background rhythm consists of medium voltage 5 to 7 hertz per second theta admixed with 3 to 4 hertz per second delta. Bilateral symmetrical sleep activity seen during brief periods of sleep. Hyperventilation not done. Photic stimulation not done. Non paroxysmal. Nonfocal. Nonlateralizing. IMPRESSION Abnormal record due to the presence of bihemispheric theta and delta activity and due to the absence of normal background rhythm. Briefl symmetrical sleep activity is seen. These abnormalities are suggestive of underlying organic or metabolic encephalopathy or postictal state. clinical correlation recommended.
--- NOTE | 2020-07-12 11:26 | WPDNEURCNPN ---
Assessment and Plan Additional Plan Considering her history and the list of the medication which she states when trying to take the benefit of giving the same medication that is Depakote 500 mg 3 times a day which is anticonvulsant as well otherwise will have to add another medication if unfortunately she keeps having seizures thickened always increase the Depakote for Consult date: 07/12/20 Time Seen: 11:00 HPI: Vicki Proctor is a 60 year old female admitted to the hospital for the complaints of seizure-like activity patient carries the diagnosis of 1. Dementia 2. Schizophrenia 3. Hypothyroidism 4. Chronic kidney disease and 5. Hypertension. Brought to the emergency department of via EMS from [facility] for the evaluation of seizure-like activity noted Susie she was nonsensically with echolalia at the time of initial evaluation on 06 of July she was admitted here when she was found unresponsive in her room at that particular time her CT scan was unremarkable she is reportedly on Depo Ultmann in any event she was brought to the hospital again for the possibility of fitness tonic clonic seizure , medications include aspirin 81 mg daily buspirone 10 mg 3 times a day Depakote Sprinkles 375 mg t.i.d. donepezil 10 mg daily citalopram 10 mg daily hello parietal 2 mg twice a day memantine 10 mg twice a day Seroquel 300 mg b.i.d. and levothyroxine 50 micro, Review of Systems Review of Systems: All systems reviewed & are unremarkable except as noted in HPI and below PMFSH Past Medical History Medical History Alzheimer's dementia Anxiety Chronic kidney disease, stage 3 Baseline creatinine is around 1.10 she she. Hypertension Hypothyroidism Macrocytic anemia Schizophrenia Surgical History Surgical History Surgical history unknown Family History Family History Mother Lung cancer Father Esophageal cancer Son Chronic mental illness Social History Social History Social History: The patient resides at [facility]. She has 3 children, but it does not sound as though they keep in touch. She smoked for a brief period of time when she was in her teenage years. No alcohol or illicit substance use. The patient's sister Gillian Cooney is listed in the computer as her emergency contact. I did speak with Emilee who reports that the patient's daughter, Claudia Reyes, would likely be her next of kin and surrogate decision maker, however. The patient is a full code at this time. Meds Home Medications and Allergies Home Medications Medication Instructions Recorded Confirmed Type aspirin 81 mg PO DAILY 04/18/20 07/11/20 History buspirone 10 mg PO TID 04/18/20 07/11/20 History divalproex [Depakote Sprinkles] 375 mg PO TID 04/18/20 07/11/20 History donepezil 10 mg PO DAILY 04/18/20 07/11/20 History ergocalciferol (vitamin D2) 1,250 mcg PO WEEKLY 04/18/20 07/11/20 History [Vitamin D2] escitalopram oxalate 10 mg PO DAILY 04/18/20 07/11/20 History haloperidol 2 mg PO BID 04/18/20 07/11/20 History levothyroxine 50 mcg PO DAILY 04/18/20 07/11/20 History memantine 10 mg PO BID 04/18/20 07/11/20 History quetiapine 300 mg PO BID 07/06/20 07/11/20 History Allergies Allergy/AdvReac Type Severity Reaction Status Date / Time No Known Allergies Allergy Verified 07/11/20 16:27 Vital Signs Vital Signs - 24 hr 07/11/20 12:54 07/11/20 14:42 07/11/20 15:58 Temperature 37.1 C 36.0 C L Pulse Rate 67 68 66 Respiratory Rate 18 18 20 Blood Pressure 155/83 H 132/78 171/71 H Pulse Oximetry 99 99 90 07/11/20 17:21 07/11/20 19:50 07/11/20 20:00 Temperature 36.6 C Pulse Rate 63 71 69 Respiratory Rate 18 Blood Pressure 156/76 H Pulse Oximetry 100 07/12/20 00:00 07/12/20 04:00 07/12/20 06:0
[2020-07-12 12:00] VITALS: PULSE 58
--- NOTE | 2020-07-12 13:41 | PM.DS ---
DS: Admitting Diagnosis Admitting Diagnosis Admitting Diagnosis: seizure-like activity DS: Discharge Diagnosis Discharge Diagnosis (1) Seizure: Code(s): R56.9 - Unspecified convulsions Status: Acute Assessment and Plan: admitted to the hospital for the complaints of seizure-like activity patient for the possibility of tonic clonic seizure she has history of Dementia, Schizophrenia, Hypothyroidism she resides in [facility] per nursing report and her facility: her baseline is responsive, awake and alert to self with nonsensical language Patient needs Assistance with Meals, Keeping Hydrated and Drinks. May need to be FED. Swallow Evaluation: Regular liquids with SOFT diet, level 6. valproic Acid level was low/sub-therapeutic at 45.9. will need Valproic Acid level recheck when appropriate and per Primary Care Physician or Neurologist orders. EEG report:suggestive of underlying organic or metabolic encephalopathy or postictal state. per neuro recommendations, changed Depakote to 500 mg 3 times a day No seizure activity noted in hospital for past 24 hours. Neurologist ok with discharge (2) Macrocytic anemia: Code(s): D53.9 - Nutritional anemia, unspecified Status: Acute Assessment and Plan: H/H 10.6/32.7 with plts 153. compared CBC results to past and found these to be stable or even improved such as when compared to July lab-work VS stable (3) Alzheimer's dementia: Code(s): G30.9 - Alzheimer's disease, unspecified; F02.80 - Dementia in other diseases classified elsewhere without behavioral disturbance Status: Chronic Assessment and Plan: controlled admitted to the hospital for the complaints of seizure-like activity patient for the possibility of tonic clonic seizure she has history of Dementia, Schizophrenia, Hypothyroidism she resides in [facility] per nursing report and her facility: her baseline is responsive, awake and alert to self with nonsensical language no agitation or outbursts or anxiety noted during interview or examination continue home meds: quetiapine, memantine, haldol, lexapro, donepezil (4) Schizophrenia: Code(s): F20.9 - Schizophrenia, unspecified Status: Chronic Assessment and Plan: Controlled admitted to the hospital for the complaints of seizure-like activity patient for the possibility of tonic clonic seizure she has history of Dementia, Schizophrenia, Hypothyroidism she resides in [facility] per nursing report and her facility: her baseline is responsive, awake and alert to self with nonsensical language no agitation or outbursts or anxiety noted during interview or examination continue home meds: quetiapine, memantine, haldol, lexapro, donepezil (5) Hypothyroidism: Code(s): E03.9 - Hypothyroidism, unspecified Status: Chronic Assessment and Plan: TSH = 4.88 continue Levothyroxine 50 mcg daily follow up with PCP (6) Hypertension: Code(s): I10 - Essential (primary) hypertension Status: Chronic Assessment and Plan: well controlled at this time no home meds for HTN BP 149/50 HR 53-63 (7) Chronic kidney disease, stage 3: Code(s): N18.30 - Chronic kidney disease, stage 3 unspecified Status: Acute Assessment and Plan: UA clear BUN 14, GFR >60, creatinine 0.[address] multiple urinary incontinence episodes no bladder Depend was soaked during my exam - informed nursing staff - no s/s of blood in urine DS: Summary Hospital Course Hospital Course: monitored and evaluated 24 hours EEG completed Neurology consultation and evaluation Depakote dose change no seizure activity observed patient discharged back to facility. Time Spent with Patient Time attestation: Total time spent providing and/or coordinating discharge services: 45 minutes Exam Narrative: Exam Narrative: General: Chronically ill appearing
[2020-07-12 14:00] VITALS: BP 184/67; PULSE 60; RESP 16; TEMP 36.8; O2SAT 98
--- NOTE | 2020-07-12 14:04 | PC.NURSE ---
Spoke with Dr. Jimenez regarding Depakote and keppra. Would like us to only send patient home on depakote and no keppra. Hospitalist aware.
== END 2020-07-12 19:00 ==
LOC: ANHED 15:21 → ANH3MED 15:35
PROVIDERS: Emergency Medicine Emergency Medical Services; Physician Assistant; Admitting Provider Hospitalist; Emergency Provider Emergency Medicine; Visit Provider Nurse Practitioner
DX: R56.9 Unspecified convulsions (principal); D53.9 Nutritional anemia, unspecified; G30.9 Alzheimer's disease, unspecified; F20.9 Schizophrenia, unspecified; E03.9 Hypothyroidism, unspecified; I12.9 Hypertensive chronic kidney disease with stage 1 through stage 4 chronic kidney disease, or unspecified chronic kidney disease; N18.30 Chronic kidney disease, stage 3 unspecified
CPT/HCPCS: 36415; 51701; 70450; 71045; 80053; 80164; 81003; 82550; 82948; 84439; 84443; 84484; 85025; 85610; 85730; 92610; 93005; 95816; 96360; 96361; 96374; 96375; 99285; A9270; G0378; G0379; J1953; J7030; J7120

== ENCOUNTER 2020-07-31 10:17 | Inpatient (IN) | payer BC, SELFPAY ==
[2020-07-31] VITALS (21 sets, daily range): BP systolic 98–168; BP diastolic 58–112; PULSE 94–119; RESP 14–23; TEMP 36.1–36.9; O2SAT 91–100; BMI 28.0
--- NOTE | ~2020-07-31 | XR_ITS ---
EXAMINATION: XR chest 1V portable DATE: 08/03/2020 05:27 INDICATION: Pneumonia. TECHNIQUE: A single frontal view of the chest was obtained. COMPARISON: Chest single view 07/31/2020, chest CT 07/31/2020 FINDINGS: The patient is rotated to her right. There are airspace opacities in the mid and lower lung zones. No pleural effusion or pneumothorax. The heart size is normal. There is a prominent left para cardial fat pad. IMPRESSION: 1. Worsened airspace opacities in the mid and lower lung zones, consistent with atelectasis versus pn eumonia. Reviewed, dictated and finalized at location A. IMPRESSION: 1. Worsened airspace opacities in the mid and lower lung zones, consistent with atelectasis versus pneumonia.
--- NOTE | ~2020-07-31 | XR_ITS ---
EXAMINATION: XR chest 1V DATE: 07/31/2020 12:03 INDICATION: Altered mental status. TECHNIQUE: A single frontal view of the chest was obtained. COMPARISON: Chest single view 07/11/2020 FINDINGS: The lung volumes are small. There are airspace opacities in the lower lung zones with a med ial predominance. No pleural effusion or pneumothorax. The heart size is normal. IMPRESSION: 1. Small lung volumes with airspace opacities in the lower lung zones, consistent with atelectasis ve rsus pneumonia. Reviewed, dictated and finalized at location B. IMPRESSION: 1. Small lung volumes with airspace opacities in the lower lung zones, consiste nt with atelectasis versus pneumonia.
--- NOTE | ~2020-07-31 | CT_ITS ---
EXAMINATION: CT brain wo con DATE: 07/31/2020 12:03 INDICATION: Altered mental status. TECHNIQUE: Computed tomography (CT) of the head was performed without intravenous contrast. The mA wa s adjusted according to patient size. Iterative reconstruction technique was employed. The dose-lengt h product was 605.33 mGy-cm. COMPARISON: Head CT 07/11/2020 FINDINGS: There is diffuse brain volume loss. There are scattered areas of low attenuation in the cer ebral white matter. There is no intracranial hemorrhage, acute infarction, or abnormal intracranial m ass lesion. The ventricles are normal in size. There is mucosal thickening in the frontal sinus. The mastoid air cells are normal. The orbits are normal. IMPRESSION: 1. Chronic diffuse brain volume loss, worse than expected for the patient's age. 2. Stable moderate nonspecific cerebral white matter disease, which likely represents chronic small v essel ischemic disease. Reviewed, dictated and finalized at location B. IMPRESSION: 1. Chronic diffuse brain volume loss, worse than expected for the patient's age . 2. Stable moderate nonspecific cerebral white matter disease, which likely repr esents chronic small vessel ischemic disease.
--- NOTE | ~2020-07-31 | XR_ITS ---
EXAMINATION: XR chest 1V portable DATE: 08/06/2020 09:07 INDICATION: Pneumonia. TECHNIQUE: A single frontal view of the chest was obtained. COMPARISON: Chest single view 08/03/2020, chest CT 07/31/2020 FINDINGS: The lung volumes are small. There are airspace opacities in the mid and lower lung zones. N o pleural effusion or pneumothorax. The heart size is normal. IMPRESSION: 1. Small lung volumes with stable airspace opacities in the mid and lower lung zones, consistent with atelectasis versus pneumonia. Reviewed, dictated and finalized at location A.
--- NOTE | ~2020-07-31 | CT_ITS ---
EXAMINATION: CTA chest PE protocol DATE: 07/31/2020 13:07 INDICATION: Hypoxia TECHNIQUE: Computed tomography angiography (CTA) of the chest was performed with 100 mL Omnipaque-350 intravenous contrast timed to evaluate the pulmonary arteries. Coronal maximum intensity projection 3D-reconstructions were created by the technologist. The dose-length product (DLP) was 342.41 mGy-cm. Automated exposure control and iterative reconstruction technique were employed. COMPARISON: None. FINDINGS: The pulmonary arteries are well-opacified. No pulmonary embolism is identified. There are a irspace opacities in the lower lobes with associated volume loss. Patchy bilateral airspace opacities are present. There is no pleural effusion or pneumothorax. No pathologically enlarged thoracic lymph nodes are identified. The heart size is normal. There is mild thoracic spondylosis. IMPRESSION: 1. Airspace opacities and volume loss in the lower lobes and patchy airspace opacities elsewhere in t he lungs, consistent with atelectasis and pneumonia. No pulmonary embolus identified. Reviewed, dictated and finalized at location A. IMPRESSION: 1. Airspace opacities and volume loss in the lower lobes and patchy airspace op acities elsewhere in the lungs, consistent with atelectasis and pneumonia. No p ulmonary embolus identified.
--- NOTE | 2020-07-31 11:02 | ECG_ITS ---
Measurements Intervals [place] Rate: 101 P: 36 SD: 140 QRS: 20 QRSD: 84 T: 33 QT: 342 QTc: 445 Interpretive Statements SINUS TACHYCARDIA ANTEROSEPTAL INFARCT, AGE INDETERMINATE BORDERLINE T WAVE ABNORMALITY- INFERIOR LEADS BASELINE ARTIFACT- I, II, III, AVR, AVL, AVF, V1, V3-V6 ABNORMAL ECG Electronically Signed On 07-31-2020 20:22:11 CDT by Vinayak Chong D.O.
--- NOTE | 2020-07-31 11:08 | ED.GENADULT ---
HPI - General Adult General Chief complaint: Altered Mental Status Stated complaint: SOB Time Seen by Provider: 07/31/20 10:39 Source: EMS History of Present Illness HPI narrative: Patient is a 60 y/o female sent from [place] for altered mental status. Patient is normally confused at baseline, but appears more confused today. Patient had a sat of 83% on RA. She was put on O2 and sent here. There is no known alleviating or exacerbating factor. She is not able to provide additional history due to poor mental status. Related Data Home Medications Medication Instructions Recorded Confirmed aspirin 81 mg PO DAILY 04/18/20 07/11/20 buspirone 10 mg PO TID 04/18/20 07/11/20 donepezil 10 mg PO DAILY 04/18/20 07/11/20 ergocalciferol (vitamin D2) 1,250 mcg PO WEEKLY 04/18/20 07/11/20 [Vitamin D2] escitalopram oxalate 10 mg PO DAILY 04/18/20 07/11/20 haloperidol 2 mg PO BID 04/18/20 07/11/20 levothyroxine 50 mcg PO DAILY 04/18/20 07/11/20 memantine 10 mg PO BID 04/18/20 07/11/20 quetiapine 300 mg PO BID 07/31/20 Allergies Allergy/AdvReac Type Severity Reaction Status Date / Time No Known Allergies Allergy Verified 07/31/20 17:56 Review of Systems Review of Systems: ROS unobtainable: Yes unobtainable due to mental status PMFSH Past Medical History Medical History Alzheimer's dementia Anxiety Chronic kidney disease, stage 3 Baseline creatinine is around 1.10 she she. Hypertension Hypothyroidism Macrocytic anemia Schizophrenia Surgical History Surgical History Surgical history unknown Family History Family History Mother Lung cancer Father Esophageal cancer Son Chronic mental illness Social History Social History Social History: The patient resides at [facility]. She has 3 children, but it does not sound as though they keep in touch. She smoked for a brief period of time when she was in her teenage years. No alcohol or illicit substance use. The patient's sister Gillian Cooney is listed in the computer as her emergency contact. I did speak with Emilee who reports that the patient's daughter, Claudia Reyes, would likely be her next of kin and surrogate decision maker, however. The patient is a full code at this time. Smoking status: Never smoker Exam Const: General: no acute distress Orientation/consciousness: confusion and lethargic HENMT: Head: normocephalic Ears: external ears normal General nose exam: Normal external nose present Eyes: General: appearance normal, both eyes and all related structures Conjunctivae: conjunctivae normal Neck: Neck: normal visual inspection and full ROM Chest: Chest palpation & inspection: normal inspection of the chest and no tenderness Resp: Effort & Inspection: normal respiratory effort Auscultation: clear to auscultation bilaterally Cardio: Rate: regular rate Rhythm: regular rhythm GI: GI Palp: No abdominal tenderness and Yes Soft to palpation Skin: General skin exam: normal color and turgor normal Neuro: General: confusion Cognition (Neuro): normal cognition Extrem: General: normal to inspection, full ROM and no pedal edema Psych: Appearance: grossly normal Affect: Blunted affect present Course Vital Signs Vital signs: Vital Signs Temperature 36.9 C 07/31/20 10:22 Pulse Rate 119 H 07/31/20 10:22 Respiratory Rate 22 H 07/31/20 10:22 Pulse Oximetry 93 07/31/20 10:22 Temperature 36.9 C 07/31/20 10:22 Pulse Rate 97 07/31/20 17:30 Respiratory Rate 19 07/31/20 17:30 Blood Pressure 155/64 H 07/31/20 17:30 Pulse Oximetry 100 07/31/20 17:30 Medical Decision Making Vital Signs Vital Signs: Vital Signs Temperature 36.9 C 07/31/20 10:22 Pulse Rate 119 H 07/31/20 10:22 Respiratory Rate 2
[2020-07-31 11:29] LABS: Alveolar/Arterial O2 Gradient 609.3 mmHg; Base Excess ABG 8.3 mEq/l (+/-2.0); Fractional Inspired Oxygen 100 %; HCO3 ABG 32.3 mEq/l (22.0-26.0); Oxygen Content ABG 15.5 %vol (16.0-22.0); Oxygen Saturation ABG 93.2 % (95.0-100.0); Oxyhemoglobin 90.9 % THb (90.0-100.0); PCO2 ABG 42.6 mmHg (35.0-45.0); PO2 ABG 61.1 mmHg (80.0-100.0); PO2 FiO2 Ratio Arterial Blood 0.61 %; Total Hemoglobin 12.1 g/dL (12.0-18.0); pH ABG 7.498 (7.350-7.450)
[2020-07-31 11:32] LABS: Device NON-REBREATHER MASK; Modified Allen's Test Pass; Site Drawn RIGHT RADIAL
[2020-07-31 11:52] LABS: Hemoglobin 11.4 g/dL (12.0-15.0); Mean Corpuscular HGB Conc 31.7 g/dl (32-36); Mean Corpuscular Hemoglobin 32.6 pg (26-34); Mean Corpuscular Volume 102.9 fl (80-100); Mean Platelet Volume 9.8 fl (7.4-10.4); Platelet Count Result 420 k/mm3 (150-375); Red Cell Distribution Width 15.9 % (11.5-14.5); White Blood Count 12.6 K/mm3 (4.5-10.0)
[2020-07-31 12:11] LABS: Alanine Aminotransferase 21 U/L (4-35); Albumin Level 2.8 g/dL (3.5-5.1); Alkaline Phosphatase 102 U/L (38-126); Anion Gap 5 mmol/L (8-16); Aspartate Amino Transferase 54 U/L (14-36); Bilirubin,Total 0.2 mg/dL (0.2-1.3); Blood Urea Nitrogen 53 mg/dL (7-17); Carbon Dioxide 35 mmol/L (22-30); Chloride 105 mmol/L (98-107); Estimated Glomerular Filt Rate 35; Glucose 159 mg/dL (65-105); Potassium 4.3 mmol/L (3.4-5.0); Sodium 145 mmol/L (137-145)
[2020-07-31 12:23] LABS: Troponin I < 0.012 ng/mL (0.000-0.034)
[2020-07-31 12:24] LABS: Band Neutrophils Percent 25 % (0-6); Lymphocytes Absolute Manual 4.15 K/mm3 (1.1-4.5); Metamyelocytes Percent 5 %; Monocytes Absolute Manual 1.13 K/mm3 (0.1-0.90); Monocytes Percent Manual 9 % (3-9); Neutrophils Absolute Manual 6.67 K/mm3 (1.7-7.2); Neutrophils Percent Manual 28 % (46-73); Total Cells Counted 100
[2020-07-31 12:25] LABS: Large Platelets Present; Platelet Estimate Adequate (Adequate)
[2020-07-31 12:26] LABS: Anisocytosis 2+ (NORMAL); Ovalocytes 1+ (NORMAL)
[2020-07-31] MEDS: SODIUM CHLORIDE 0.9% IV 1,000 ML 999 ML IV CONT (13:15)
[2020-07-31 13:45] LABS: Add Urine Microscopic? YES; Appearance Urine Clear (Clear); Bilirubin Urine Negative (Negative); Blood Urine 2+ (Negative); Color Urine Amber (Yellow); Glucose Urine UA Negative (Negative); Ketones Urine Negative (Negative); Leukocyte Esterase Ur Trace LEU/UL (Negative); Mucus Urine Rare /lpf; Nitrate Urine Negative (Negative); Protein Urine 1+ mg/dL (Negative)
--- NOTE | 2020-07-31 15:05 | PC.NURSE ---
Per Dr. Hackett, pt weened off of NRB. Pt currently on 5L NC
[2020-07-31 15:25] LABS: Troponin I < 0.012 ng/mL (0.000-0.034)
[2020-07-31 15:33] LABS: Valproic Acid 58.8 ug/mL (50-120)
--- NOTE | 2020-07-31 17:59 | ADMGEN ---
This patient, Vicki Proctor, was admitted to Medical Room 342-01. Patient/family oriented to hospital policies and general routines including ID bracelet, bed and alarms, visiting hours, pain management, procedures, bathroom and other care routines, personal items, smoking policy, room service/diet, and visiting hours. Information on how to activate the Rapid Response Team has been discussed. Patient/Family are encouraged to report perceived risks to care and to ask questions if they do not understand what they are told or what they should do.
[2020-07-31] MEDS: SODIUM CHLORIDE 0.9% IV 1,000 ML 125 ML IV CONT (18:06)
[2020-07-31 18:38] LABS: Troponin I 0.013 ng/mL (0.000-0.034)
--- NOTE | 2020-07-31 21:40 | PM.IMHP ---
H&P: HPI History of Present Illness Date/Time: 07/31/20 21:40 Chief Complaint: Altered mental status Narrative: This is a 60-year-old female with past medical history significant for dementia patient resides at a [facility] she was brought to the emergency room after staff concerns for altered mental status upon arrival to emergency room patient was found to be hypoxic requiring supplemental oxygen. Preliminary workup was significant for a CT of chest with bilateral bibasal pneumonia. Patient is unable to give any history due to her advanced dementia. Patient only speaks random words according to [facility] papers she patient's baseline she is not oriented to self time space or situation. Review of Systems Review of Systems: ROS unobtainable: Yes unobtainable due to medical condition (Advanced dementia) PMFSH Past Medical History Medical History Alzheimer's dementia Anxiety Chronic kidney disease, stage 3 Baseline creatinine is around 1.10 she she. Hypertension Hypothyroidism Macrocytic anemia Schizophrenia Surgical History Surgical History Surgical history unknown Family History Family History Mother Lung cancer Father Esophageal cancer Son Chronic mental illness Social History Social History Social History: The patient resides at [facility]. She has 3 children, but it does not sound as though they keep in touch. She smoked for a brief period of time when she was in her teenage years. No alcohol or illicit substance use. The patient's sister Gillian Cooney is listed in the computer as her emergency contact. I did speak with Emilee who reports that the patient's daughter, Claudia Reyes, would likely be her next of kin and surrogate decision maker, however. The patient is a full code at this time. Smoking status: Never smoker Alcohol intake: unknown Substance use: unknown Gender identity (if verbalized by the patient): Female Spiritual care concerns: No Meds Home Medications and Allergies Home Medications Medication Instructions Recorded Confirmed Type aspirin 81 mg PO DAILY 04/18/20 07/31/20 History buspirone 10 mg PO TID 04/18/20 07/31/20 History donepezil 10 mg PO DAILY 04/18/20 07/31/20 History ergocalciferol (vitamin D2) 1,250 mcg PO WEEKLY 04/18/20 07/31/20 History [Vitamin D2] escitalopram oxalate 10 mg PO DAILY 04/18/20 07/31/20 History haloperidol 2 mg PO BID 04/18/20 07/31/20 History levothyroxine 50 mcg PO DAILY 04/18/20 07/31/20 History memantine 10 mg PO BID 04/18/20 07/31/20 History divalproex [Depakote Sprinkles] 500 mg PO Q8H 30 Days #360 cap 07/12/20 07/31/20 Rx quetiapine 300 mg PO BID 07/31/20 07/31/20 History Allergies Allergy/AdvReac Type Severity Reaction Status Date / Time No Known Allergies Allergy Verified 07/31/20 17:56 Vital Signs Vital Signs - 24 hr 07/31/20 10:22 07/31/20 10:32 07/31/20 10:45 Temperature 98.5 F Pulse Rate 119 H 117 H 116 H Respiratory Rate 22 H 19 22 H Blood Pressure 146/64 H 161/79 H Pulse Oximetry 93 93 94 07/31/20 10:46 07/31/20 11:16 07/31/20 11:31 Temperature Pulse Rate 116 H 115 H 112 H Respiratory Rate 22 H 23 H 23 H Blood Pressure 161/79 H 168/75 H 166/70 H Pulse Oximetry 93 93 95 07/31/20 13:16 07/31/20 13:45 07/31/20 14:00 Temperature Pulse Rate 107 H 100 100 Respiratory Rate 18 14 19 Blood Pressure 164/112 H 152/90 H 161/77 H Pulse Oximetry 100 100 100 07/31/20 14:16 07/31/20 15:04 07/31/20 15:06 Temperature Pulse Rate 104 H 104 H 103 H Respiratory Rate 17 18 18 Blood Pressure 98/80 L 162/88 H 162/88 H Pulse Oximetry 98 95 96 07/31/20 15:52 07/31/20 15:56 07/31/20 16:00 Temperature Pulse Rate 96 94 Respiratory Rate 18 16 Blood Pressure 150/64 H
[2020-08-01] VITALS (9 sets, daily range): BP systolic 148–187; BP diastolic 57–69; PULSE 58–101; RESP 12–17; TEMP 36.1–36.4; O2SAT 94–98
[2020-08-01] MEDS: SODIUM CHLORIDE 0.9% IV 1,000 ML 125 ML IV CONT ×3 (03:30→22:08)
[2020-08-01] MEDS: ENOXAPARIN 40 MG/0.4 ML SYRINGE SUB-Q (10:00)
[2020-08-01] MEDS: busPIRone HCL 10 MG TABLET PO ×2 (13:03→17:02)
[2020-08-01] MEDS: DIVALPROEX SODIUM SPRINKLE 125 MG CAP.DR 500 MG PO ×2 (13:03→22:04)
--- NOTE | 2020-08-01 14:28 | PM.IMPN ---
Progress Note: A&P Assessment and Plan (1) Pneumonia: Qualifiers: Laterality: bilateral Lung location: unspecified part of lung Pneumonia type: due to unspecified organism Qualified Code(s): J18.9 - Pneumonia, unspecified organism Code(s): J18.9 - Pneumonia, unspecified organism Status: Acute Assessment and Plan: Patient has been started on cefepime and doxycycline Patient resides at a intermediate Await cultures 08/01/20 14:28 Patient is 60-year-old female with history of severe dementia a resident of nursing sent to emergency department with acute mental status change unfortunately patient unable to provide any review of symptoms or history, upon arrival patient was hypoxic requiring supplemental oxygen, patient had a CTA scan of the chest did not show any PE, patient is found to have pneumonia suspect community-acquired pneumonia being treated with cefepime and doxycycline. Will continue to monitor will have a PT OT evaluate the patient and further recommendation to follow (2) Altered mental status: Qualifiers: Altered mental status type: unspecified Qualified Code(s): R41.82 - Altered mental status, unspecified Code(s): R41.82 - Altered mental status, unspecified Status: Acute Assessment and Plan: Likely secondary to 1. Supportive care (3) Acute respiratory failure with hypoxia: Code(s): J96.01 - Acute respiratory failure with hypoxia Status: Acute Assessment and Plan: On supplemental oxygen 5 L by nasal cannula Try and keep oxygen saturation at 94% Breathing treatments (4) THANH (acute kidney injury): Code(s): N17.9 - Acute kidney failure, unspecified Status: Acute Assessment and Plan: Currently BUN and creatinine at patient's baseline her creatinine of see late in between 1.1-1.8 (5) Alzheimer's dementia: Code(s): G30.9 - Alzheimer's disease, unspecified; F02.80 - Dementia in other diseases classified elsewhere without behavioral disturbance Status: Chronic Assessment and Plan: Continue donepezil continue memantine Continue Seroquel Continue Buspirone (6) Seizure: Code(s): R56.9 - Unspecified convulsions Status: Acute Assessment and Plan: Continue divalproex Subjective Date/time seen: 08/01/20 14:28 Patient is 60-year-old female with history of severe dementia a resident of nursing sent to emergency department with acute mental status change unfortunately patient unable to provide any review of symptoms or history, upon arrival patient was hypoxic requiring supplemental oxygen, patient had a CTA scan of the chest did not show any PE, patient is found to have pneumonia suspect community-acquired pneumonia being treated with cefepime and doxycycline. Will continue to monitor will have a PT OT evaluate the patient and further recommendation to follow Review of Systems Review of Systems: ROS unobtainable: Yes unobtainable due to medical condition (Advanced dementia) Exam Narrative: Exam Narrative: Patient is comfortable, NAD HEENT: eyes are clear and none icteric LUNGS: Normal respiratory effort ABD: Not distended Lower extremities: no edema SKIN: nonjaundiced Neuro: Patient with severe dementia. Objective Data Vital Signs Vital Signs: Vital Signs - 24 hr 07/31/20 15:04 07/31/20 15:06 07/31/20 15:52 Temperature Pulse Rate 104 H 103 H 96 Respiratory Rate 18 18 18 Blood Pressure 162/88 H 162/88 H 150/64 H Pulse Oximetry 95 96 94 07/31/20 15:56 07/31/20 16:00 07/31/20 17:15 Temperature Pulse Rate 94 98 Respiratory Rate 16 17 Blood Pressure 144/68 H 157/70 H Pulse Oximetry 94 97 100 07/31/20 17:30 07/31/20 18:06 07/31/20 20:00 Temperature 97 F L Pulse Rate 97 100 95 Respiratory Rate 19 18 Blood Pressure 155/64 H 164/68 H Pulse Oximetry 100 93 07/31/20 20:25 07/31/20 20:31 08/01/20 00:00 Temperature 97.4 F L Pulse Ra
[2020-08-01] MEDS: MEMANTINE 10 MG TABLET PO (20:24)
[2020-08-01] MEDS: HALOPERIDOL 1 MG TABLET 2 MG PO (20:24)
[2020-08-01] MEDS: QUEtiapine FUMARATE 100 MG TABLET 300 MG PO (20:24)
[2020-08-02] VITALS (11 sets, daily range): BP systolic 126–158; BP diastolic 62–87; PULSE 88–101; RESP 12–17; TEMP 35.8–36.8; O2SAT 92–99; BMI 28.0
[2020-08-02] MEDS: LEVOTHYROXINE SODIUM 50 MCG TABLET PO (05:33)
[2020-08-02] MEDS: DIVALPROEX SODIUM SPRINKLE 125 MG CAP.DR 500 MG PO ×3 (05:33→21:14)
[2020-08-02] MEDS: SODIUM CHLORIDE 0.9% IV 1,000 ML 125 ML IV CONT ×2 (06:42→16:34)
[2020-08-02 08:17] LABS: Hematocrit 27.8 % (37.0-47.0); Hemoglobin 8.6 g/dL (12.0-15.0); Mean Corpuscular HGB Conc 30.9 g/dl (32-36); Mean Corpuscular Hemoglobin 32.7 pg (26-34); Mean Corpuscular Volume 105.7 fl (80-100); Mean Platelet Volume 9.9 fl (7.4-10.4); Platelet Count Result 361 k/mm3 (150-375); Red Blood Count 2.63 M/mm3 (4.2-5.4); Red Cell Distribution Width 16.4 % (11.5-14.5); White Blood Count 14.5 K/mm3 (4.5-10.0)
[2020-08-02 08:26] LABS: Hemoglobin A1C 5.4 % (<5.7)
[2020-08-02 08:30] LABS: Anion Gap 3 mmol/L (8-16); Blood Urea Nitrogen 25 mg/dL (7-17); Calcium 8.1 mg/dL (8.4-10.2); Carbon Dioxide 29 mmol/L (22-30); Chloride 117 mmol/L (98-107); Estimated CRCL calculation 63 ml/min; Estimated Glomerular Filt Rate > 60; Glucose 116 mg/dL (65-105); Potassium 3.5 mmol/L (3.4-5.0); Sodium 149 mmol/L (137-145)
[2020-08-02] MEDS: ENOXAPARIN 40 MG/0.4 ML SYRINGE SUB-Q (08:51)
[2020-08-02] MEDS: ESCITALOPRAM OXALATE 10 MG TABLET PO (08:51)
[2020-08-02] MEDS: QUEtiapine FUMARATE 100 MG TABLET 300 MG PO ×2 (08:51→21:13)
[2020-08-02] MEDS: busPIRone HCL 10 MG TABLET PO ×3 (08:52→16:37)
[2020-08-02] MEDS: DONEPEZIL HCL 10 MG TABLET PO (08:52)
[2020-08-02] MEDS: HALOPERIDOL 1 MG TABLET 2 MG PO ×2 (08:52→21:13)
[2020-08-02] MEDS: ASPIRIN 81 MG CHEWABLE TABLET PO (08:52)
[2020-08-02] MEDS: MEMANTINE 10 MG TABLET PO ×2 (08:52→21:13)
--- NOTE | 2020-08-02 11:56 | PCPTNOTE ---
Patient long-term detention resident at [facility], dependent and W/C bound at baseline. Patient does not respond to commands, not appropriate for therapy at this time. D/C orders obtained.
--- NOTE | 2020-08-02 15:54 | PM.IMPN ---
Progress Note: A&P Assessment and Plan (1) Pneumonia: Qualifiers: Laterality: bilateral Lung location: unspecified part of lung Pneumonia type: due to unspecified organism Qualified Code(s): J18.9 - Pneumonia, unspecified organism Code(s): J18.9 - Pneumonia, unspecified organism Status: Acute Assessment and Plan: Patient has been started on cefepime and doxycycline Patient resides at a [facility] Await cultures 08/02/20 15:54 Patient is 60-year-old female with history of severe dementia a resident of nursing sent to emergency department with acute mental status change unfortunately patient unable to provide any review of symptoms or history, upon arrival patient was hypoxic requiring supplemental oxygen, patient had a CTA scan of the chest did not show any PE, patient is found to have pneumonia suspect community-acquired pneumonia being treated with cefepime and doxycycline. Will continue to monitor will have a PT OT evaluate the patient and further recommendation to follow. 08/02 patient remains nonverbal unable to provide any review of symptom, however patient is required 5 L of oxygen normally patient is on room air, will repeat chest x-ray tomorrow, will continue present management and further recommendation to follow (2) Altered mental status: Qualifiers: Altered mental status type: unspecified Qualified Code(s): R41.82 - Altered mental status, unspecified Code(s): R41.82 - Altered mental status, unspecified Status: Acute Assessment and Plan: Likely secondary to 1. Supportive care (3) Acute respiratory failure with hypoxia: Code(s): J96.01 - Acute respiratory failure with hypoxia Status: Acute Assessment and Plan: On supplemental oxygen 5 L by nasal cannula Try and keep oxygen saturation at 94% Breathing treatments (4) THANH (acute kidney injury): Code(s): N17.9 - Acute kidney failure, unspecified Status: Acute Assessment and Plan: Currently BUN and creatinine at patient's baseline her creatinine of see late in between 1.1-1.8 (5) Alzheimer's dementia: Code(s): G30.9 - Alzheimer's disease, unspecified; F02.80 - Dementia in other diseases classified elsewhere without behavioral disturbance Status: Chronic Assessment and Plan: Continue donepezil continue memantine Continue Seroquel Continue Buspirone (6) Seizure: Code(s): R56.9 - Unspecified convulsions Status: Acute Assessment and Plan: Continue divalproex Subjective Date/time seen: 08/02/20 15:54 Patient is 60-year-old female with history of severe dementia a resident of nursing sent to emergency department with acute mental status change unfortunately patient unable to provide any review of symptoms or history, upon arrival patient was hypoxic requiring supplemental oxygen, patient had a CTA scan of the chest did not show any PE, patient is found to have pneumonia suspect community-acquired pneumonia being treated with cefepime and doxycycline. Will continue to monitor will have a PT OT evaluate the patient and further recommendation to follow. 08/02 patient remains nonverbal unable to provide any review of symptom, however patient is required 5 L of oxygen normally patient is on room air, will repeat chest x-ray tomorrow, will continue present management and further recommendation to follow Review of Systems Review of Systems: ROS unobtainable: Yes unobtainable due to medical condition Exam Narrative: Exam Narrative: Patient is comfortable, NAD HEENT: eyes are clear and none icteric LUNGS: Normal respiratory effort ABD: Not distended Lower extremities: no edema SKIN: nonjaundiced Neuro: Patient with severe dementia. Objective Data Vital Signs Vital Signs: Vital Signs - 24 hr 08/01/20 16:00 08/01/20 19:54 08/01/20 20:00 Temperature 97.6 F Pulse Rate 88 58 L 95 Respiratory Rate 12 12 Blood
[2020-08-03] VITALS (11 sets, daily range): BP systolic 104–157; BP diastolic 55–88; PULSE 85–96; RESP 16–18; TEMP 36–36.6; O2SAT 95–98
[2020-08-03] MEDS: SODIUM CHLORIDE 0.9% IV 1,000 ML 125 ML IV CONT ×3 (02:05→20:57)
[2020-08-03] MEDS: DIVALPROEX SODIUM SPRINKLE 125 MG CAP.DR 500 MG PO ×3 (05:58→20:56)
[2020-08-03] MEDS: LEVOTHYROXINE SODIUM 50 MCG TABLET PO (05:58)
[2020-08-03 06:03] LABS: Hematocrit 30.3 % (37.0-47.0); Hemoglobin 9.5 g/dL (12.0-15.0); Mean Corpuscular HGB Conc 31.4 g/dl (32-36); Mean Corpuscular Hemoglobin 32.3 pg (26-34); Mean Corpuscular Volume 103.1 fl (80-100); Mean Platelet Volume 9.8 fl (7.4-10.4); Platelet Count Result 404 k/mm3 (150-375); Red Blood Count 2.94 M/mm3 (4.2-5.4); Red Cell Distribution Width 16.6 % (11.5-14.5); White Blood Count 15.2 K/mm3 (4.5-10.0)
[2020-08-03 06:19] LABS: Anion Gap 4 mmol/L (8-16); Blood Urea Nitrogen 25 mg/dL (7-17); Calcium 8.5 mg/dL (8.4-10.2); Carbon Dioxide 28 mmol/L (22-30); Chloride 117 mmol/L (98-107); Estimated CRCL calculation 73 ml/min; Estimated Glomerular Filt Rate > 60; Glucose 122 mg/dL (65-105); Potassium 3.5 mmol/L (3.4-5.0); Sodium 149 mmol/L (137-145)
[2020-08-03] MEDS: DONEPEZIL HCL 10 MG TABLET PO (08:36)
[2020-08-03] MEDS: busPIRone HCL 10 MG TABLET PO ×3 (08:36→16:35)
[2020-08-03] MEDS: MEMANTINE 10 MG TABLET PO ×2 (08:36→19:41)
[2020-08-03] MEDS: HALOPERIDOL 1 MG TABLET 2 MG PO ×2 (08:36→19:41)
[2020-08-03] MEDS: QUEtiapine FUMARATE 100 MG TABLET 300 MG PO ×2 (08:36→19:41)
[2020-08-03] MEDS: ASPIRIN 81 MG CHEWABLE TABLET PO (08:36)
[2020-08-03] MEDS: ESCITALOPRAM OXALATE 10 MG TABLET PO (08:37)
[2020-08-03] MEDS: ENOXAPARIN 40 MG/0.4 ML SYRINGE SUB-Q (08:38)
--- NOTE | 2020-08-03 15:49 | PC.NURSE ---
On 08/03/20, the student, [ Berta Triana], provided care and completed [facility] documentation on this patient. I have reviewed the student's documentation and agree with the findings.
--- NOTE | 2020-08-03 16:00 | PM.IMPN ---
Progress Note: A&P Assessment and Plan (1) Pneumonia: Qualifiers: Laterality: bilateral Lung location: unspecified part of lung Pneumonia type: due to unspecified organism Qualified Code(s): J18.9 - Pneumonia, unspecified organism Code(s): J18.9 - Pneumonia, unspecified organism Status: Acute Assessment and Plan: Patient has been started on cefepime and doxycycline Patient resides at a group home Await cultures 08/03/20 16:00 Patient is 60-year-old female with history of severe dementia a resident of nursing sent to emergency department with acute mental status change unfortunately patient unable to provide any review of symptoms or history, upon arrival patient was hypoxic requiring supplemental oxygen, patient had a CTA scan of the chest did not show any PE, patient is found to have pneumonia suspect community-acquired pneumonia being treated with cefepime and doxycycline. Will continue to monitor will have a PT OT evaluate the patient and further recommendation to follow. 08/02 patient remains nonverbal unable to provide any review of symptom, however patient is required 5 L of oxygen normally patient is on room air, will repeat chest x-ray tomorrow, will continue present management and further recommendation to follow. 08/03 repeat checks x-ray today shows increased infiltrate with pneumonia will continue Cefepime and doxycycline, patient remains clinically stable, patient with severe dementia unable to provide any review of symptom, will continue present managed repeat chest x-ray in 2 days and further recommendation to follow (2) Altered mental status: Qualifiers: Altered mental status type: unspecified Qualified Code(s): R41.82 - Altered mental status, unspecified Code(s): R41.82 - Altered mental status, unspecified Status: Acute Assessment and Plan: Likely secondary to 1. Supportive care (3) Acute respiratory failure with hypoxia: Code(s): J96.01 - Acute respiratory failure with hypoxia Status: Acute Assessment and Plan: On supplemental oxygen 5 L by nasal cannula Try and keep oxygen saturation at 94% Breathing treatments (4) THANH (acute kidney injury): Code(s): N17.9 - Acute kidney failure, unspecified Status: Acute Assessment and Plan: Currently BUN and creatinine at patient's baseline her creatinine of see late in between 1.1-1.8 (5) Alzheimer's dementia: Code(s): G30.9 - Alzheimer's disease, unspecified; F02.80 - Dementia in other diseases classified elsewhere without behavioral disturbance Status: Chronic Assessment and Plan: Continue donepezil continue memantine Continue Seroquel Continue Buspirone (6) Seizure: Code(s): R56.9 - Unspecified convulsions Status: Acute Assessment and Plan: Continue divalproex Subjective Date/time seen: 08/03/20 16:00 Patient is 60-year-old female with history of severe dementia a resident of nursing sent to emergency department with acute mental status change unfortunately patient unable to provide any review of symptoms or history, upon arrival patient was hypoxic requiring supplemental oxygen, patient had a CTA scan of the chest did not show any PE, patient is found to have pneumonia suspect community-acquired pneumonia being treated with cefepime and doxycycline. Will continue to monitor will have a PT OT evaluate the patient and further recommendation to follow. 08/02 patient remains nonverbal unable to provide any review of symptom, however patient is required 5 L of oxygen normally patient is on room air, will repeat chest x-ray tomorrow, will continue present management and further recommendation to follow. 08/03 repeat checks x-ray today shows increased infiltrate with pneumonia will continue Cefepime and doxycycline, patient remains clinically stable, patient with severe dementia unable to provide any review of symptom, will contin
[2020-08-04] VITALS (11 sets, daily range): BP systolic 140–152; BP diastolic 72–87; PULSE 76–88; RESP 17–18; TEMP 36.1–36.6; O2SAT 83–99
[2020-08-04] MEDS: SODIUM CHLORIDE 0.9% IV 1,000 ML 125 ML IV CONT ×2 (05:22→14:16)
[2020-08-04] MEDS: DIVALPROEX SODIUM SPRINKLE 125 MG CAP.DR 500 MG PO ×3 (05:24→20:36)
[2020-08-04] MEDS: LEVOTHYROXINE SODIUM 50 MCG TABLET PO (05:24)
[2020-08-04 05:42] LABS: Hematocrit 29.8 % (37.0-47.0); Hemoglobin 9.2 g/dL (12.0-15.0); Mean Corpuscular HGB Conc 30.9 g/dl (32-36); Mean Corpuscular Hemoglobin 31.6 pg (26-34); Mean Corpuscular Volume 102.4 fl (80-100); Platelet Count Result 413 k/mm3 (150-375); Red Blood Count 2.91 M/mm3 (4.2-5.4); Red Cell Distribution Width 16.5 % (11.5-14.5); White Blood Count 13.4 K/mm3 (4.5-10.0)
[2020-08-04 05:52] LABS: Anion Gap 1 mmol/L (8-16); Blood Urea Nitrogen 21 mg/dL (7-17); Calcium 8.4 mg/dL (8.4-10.2); Carbon Dioxide 31 mmol/L (22-30); Chloride 114 mmol/L (98-107); Estimated CRCL calculation 73 ml/min; Estimated Glomerular Filt Rate > 60; Glucose 98 mg/dL (65-105); Potassium 3.3 mmol/L (3.4-5.0); Sodium 146 mmol/L (137-145)
[2020-08-04] MEDS: HALOPERIDOL 1 MG TABLET 2 MG PO ×2 (08:21→20:37)
[2020-08-04] MEDS: ESCITALOPRAM OXALATE 10 MG TABLET PO (08:21)
[2020-08-04] MEDS: DONEPEZIL HCL 10 MG TABLET PO (08:21)
[2020-08-04] MEDS: QUEtiapine FUMARATE 100 MG TABLET 300 MG PO ×2 (08:21→20:36)
[2020-08-04] MEDS: ENOXAPARIN 40 MG/0.4 ML SYRINGE SUB-Q (08:21)
[2020-08-04] MEDS: ASPIRIN 81 MG CHEWABLE TABLET PO (08:21)
[2020-08-04] MEDS: MEMANTINE 10 MG TABLET PO ×2 (08:21→20:36)
[2020-08-04] MEDS: busPIRone HCL 10 MG TABLET PO ×3 (08:21→16:43)
--- NOTE | 2020-08-04 09:17 | PM.IMPN ---
Progress Note: A&P Assessment and Plan (1) Pneumonia: Qualifiers: Laterality: bilateral Lung location: unspecified part of lung Pneumonia type: due to unspecified organism Qualified Code(s): J18.9 - Pneumonia, unspecified organism Code(s): J18.9 - Pneumonia, unspecified organism Status: Acute Assessment and Plan: Probably community-acquired pneumonia repeat chest x-ray on Thursday Monitor CBC Continue cefepime and doxycycline (2) Altered mental status: Qualifiers: Altered mental status type: unspecified Qualified Code(s): R41.82 - Altered mental status, unspecified Code(s): R41.82 - Altered mental status, unspecified Status: Acute Assessment and Plan: Most likely acute metabolic encephalopathy secondary to pneumonia complicated with dementia. Supportive care (3) Acute respiratory failure with hypoxia: Code(s): J96.01 - Acute respiratory failure with hypoxia Status: Acute Assessment and Plan: Secondary to hypoxia On supplemental oxygen by nasal cannula Try and keep oxygen saturation at 94% Continue antibiotic and inhaler treatment (4) THANH (acute kidney injury): Code(s): N17.9 - Acute kidney failure, unspecified Status: Acute Assessment and Plan: Currently BUN and creatinine at patient's baseline her creatinine of see late in between 1.1-1.8 (5) Alzheimer's dementia: Code(s): G30.9 - Alzheimer's disease, unspecified; F02.80 - Dementia in other diseases classified elsewhere without behavioral disturbance Status: Chronic Assessment and Plan: Continue donepezil continue memantine Continue Seroquel Continue Buspirone (6) Seizure: Code(s): R56.9 - Unspecified convulsions Status: Acute Assessment and Plan: Continue divalproex (7) Electrolyte imbalance: Code(s): E87.8 - Other disorders of electrolyte and fluid balance, not elsewhere classified Status: Acute Assessment and Plan: Acute hypernatremia encourage hydration Acute hypokalemia replace Subjective Date/time seen: 08/04/20 09:17 Interval history: Patient is 60-year-old female with history of severe dementia a resident of nursing sent to emergency department with acute mental status change unfortunately patient unable to provide any review of symptoms or history, upon arrival patient was hypoxic requiring supplemental oxygen, patient had a CTA scan of the chest did not show any PE, patient is found to have pneumonia suspect community-acquired pneumonia being treated with cefepime and doxycycline. Will continue to monitor will have a PT OT evaluate the patient and further recommendation to follow. Patient is poor historian due severe dementia Constant antibiotic leukocytosis improved has hypokalemia hypernatremia has improved I am seeing the patient for pneumonia Exam Narrative: Exam Narrative: Alert Chest positive scattered crackles and wheeze Abdomen nontender nondistended CVS S1 + S2 Objective Data Vital Signs Vital Signs: Vital Signs - 24 hr 08/03/20 09:45 08/03/20 12:00 08/03/20 13:55 Temperature 96.8 F L Pulse Rate 96 85 87 Respiratory Rate 18 16 Blood Pressure 157/73 H Pulse Oximetry 95 08/03/20 13:57 08/03/20 16:00 08/03/20 19:51 Temperature 97.6 F Pulse Rate 85 90 Respiratory Rate 18 Blood Pressure 104/55 L Pulse Oximetry 96 98 08/03/20 20:00 08/04/20 00:00 08/04/20 04:09 Temperature Pulse Rate 88 80 76 Respiratory Rate Blood Pressure Pulse Oximetry 08/04/20 04:34 Temperature 97.8 F Pulse Rate 80 Respiratory Rate 17 Blood Pressure 140/80 Pulse Oximetry 95 Intake/Output Intake/Output: Intake & Output 08/01/20 08/02/20 08/03/20 08/04/20 23:59 23:59 23:59 23:59 Intake Total 3500 2855 3975 1000 Output Total 0 Balance 3500 2855 3975 1000 Meds/Results Medications: Active Medications Generic Name Dose Route Start La
[2020-08-04] MEDS: POTASSIUM CHLORIDE 20 MEQ TABLET 40 MEQ PO (10:46)
[2020-08-05] VITALS (11 sets, daily range): BP systolic 123–149; BP diastolic 56–86; PULSE 75–105; RESP 18; TEMP 35.8–36.6; O2SAT 95–99
[2020-08-05 06:03] LABS: Hematocrit 31.6 % (37.0-47.0); Hemoglobin 9.8 g/dL (12.0-15.0); Mean Corpuscular Hemoglobin 32.2 pg (26-34); Mean Corpuscular Volume 103.9 fl (80-100); Mean Platelet Volume 9.9 fl (7.4-10.4); Platelet Count Result 407 k/mm3 (150-375); Red Blood Count 3.04 M/mm3 (4.2-5.4); Red Cell Distribution Width 16.6 % (11.5-14.5); White Blood Count 12.4 K/mm3 (4.5-10.0)
[2020-08-05] MEDS: LEVOTHYROXINE SODIUM 50 MCG TABLET PO (06:10)
[2020-08-05] MEDS: DIVALPROEX SODIUM SPRINKLE 125 MG CAP.DR 500 MG PO ×3 (06:10→22:37)
[2020-08-05 06:18] LABS: Anion Gap 0 mmol/L (8-16); Blood Urea Nitrogen 23 mg/dL (7-17); Calcium 8.6 mg/dL (8.4-10.2); Carbon Dioxide 31 mmol/L (22-30); Chloride 112 mmol/L (98-107); Estimated CRCL calculation 63 ml/min; Estimated Glomerular Filt Rate > 60; Glucose 85 mg/dL (65-105); Potassium 3.4 mmol/L (3.4-5.0); Sodium 143 mmol/L (137-145)
[2020-08-05] MEDS: ENOXAPARIN 40 MG/0.4 ML SYRINGE SUB-Q (08:54)
[2020-08-05] MEDS: QUEtiapine FUMARATE 100 MG TABLET 300 MG PO (09:03)
[2020-08-05] MEDS: DONEPEZIL HCL 10 MG TABLET PO (09:03)
[2020-08-05] MEDS: HALOPERIDOL 1 MG TABLET 2 MG PO ×2 (09:03→22:37)
[2020-08-05] MEDS: busPIRone HCL 10 MG TABLET PO ×3 (09:03→16:55)
[2020-08-05] MEDS: ESCITALOPRAM OXALATE 10 MG TABLET PO (09:03)
[2020-08-05] MEDS: MEMANTINE 10 MG TABLET PO ×2 (09:03→22:37)
[2020-08-05] MEDS: ASPIRIN 81 MG CHEWABLE TABLET PO (09:03)
--- NOTE | 2020-08-05 09:21 | PM.IMPN ---
Progress Note: A&P Assessment and Plan (1) Pneumonia: Qualifiers: Laterality: bilateral Lung location: unspecified part of lung Pneumonia type: due to unspecified organism Qualified Code(s): J18.9 - Pneumonia, unspecified organism Code(s): J18.9 - Pneumonia, unspecified organism Status: Acute Assessment and Plan: Probably community-acquired pneumonia repeat chest x-ray on Thursday Monitor CBC Continue cefepime and doxycycline No change (2) Altered mental status: Qualifiers: Altered mental status type: unspecified Qualified Code(s): R41.82 - Altered mental status, unspecified Code(s): R41.82 - Altered mental status, unspecified Status: Acute Assessment and Plan: Most likely acute metabolic encephalopathy secondary to pneumonia complicated with dementia. Supportive care hold Lexapro and Seroquel for today And re-evaluate in a.m. Check ammonia level. (3) Acute respiratory failure with hypoxia: Code(s): J96.01 - Acute respiratory failure with hypoxia Status: Acute Assessment and Plan: Secondary to hypoxia On supplemental oxygen by nasal cannula Try and keep oxygen saturation at 94% Continue antibiotic and inhaler treatment (4) THANH (acute kidney injury): Code(s): N17.9 - Acute kidney failure, unspecified Status: Acute Assessment and Plan: Currently BUN and creatinine at patient's baseline her creatinine of see late in between 1.1-1.8 (5) Alzheimer's dementia: Code(s): G30.9 - Alzheimer's disease, unspecified; F02.80 - Dementia in other diseases classified elsewhere without behavioral disturbance Status: Chronic Assessment and Plan: Continue donepezil continue memantine Hold Seroquel Continue Buspirone (6) Seizure: Code(s): R56.9 - Unspecified convulsions Status: Acute Assessment and Plan: Continue divalproex , ammonia level (7) Electrolyte imbalance: Code(s): E87.8 - Other disorders of electrolyte and fluid balance, not elsewhere classified Status: Acute Assessment and Plan: Acute hypernatremia encourage hydration Acute hypokalemia replace (8) Acute on chronic diastolic (congestive) heart failure: Code(s): I50.33 - Acute on chronic diastolic (congestive) heart failure Status: Acute Assessment and Plan: Patient has significant edema upper and lower extremity Patient is short of breath Start IV Lasix 40 mg twice a day for 3 doses on 08/05/2020 Most likely patient has acute and of chronic diastolic CHF exacerbation developed during hospitalization Subjective Date/time seen: 08/05/20 09:21 Interval history: Patient is 60-year-old female with history of severe dementia a resident of nursing sent to emergency department with acute mental status change unfortunately patient unable to provide any review of symptoms or history, upon arrival patient was hypoxic requiring supplemental oxygen, patient had a CTA scan of the chest did not show any PE, patient is found to have pneumonia suspect community-acquired pneumonia being treated with cefepime and doxycycline. Will continue to monitor will have a PT OT evaluate the patient and further recommendation to follow. Patient is poor historian due severe dementia Patient is more sleepy and lethargic Will hold Seroquel and Lexapro today I am seeing the patient for pneumonia Exam Narrative: Exam Narrative: Sleepy Chest positive scattered crackles and wheeze Abdomen nontender nondistended CVS S1 + S2 Bilateral lower extremity edema Objective Data Vital Signs Vital Signs: Vital Signs - 24 hr 08/04/20 12:00 08/04/20 16:00 08/04/20 16:09 Temperature 97.1 F L Pulse Rate 82 86 87 Respiratory Rate 18 Blood Pressure 151/87 H Pulse Oximetry 96 08/04/20 20:00 08/04/20 20:33 08/04/20 22:17 Temperature 96.9 F L Pulse Rate 84 88 Respiratory Rate 18 Blood Pressure 152/72 H
[2020-08-05 09:52] LABS: Ammonia < 9 umol/L (9-30)
[2020-08-05] MEDS: FUROSEMIDE INJ 40 MG/4 ML VIAL IV PUSH ×2 (10:30→16:55)
[2020-08-06] VITALS (13 sets, daily range): BP systolic 136–138; BP diastolic 54–74; PULSE 80–98; RESP 12–18; TEMP 36–36.2; O2SAT 88–98
[2020-08-06] MEDS: LEVOTHYROXINE SODIUM 50 MCG TABLET PO (05:30)
[2020-08-06] MEDS: DIVALPROEX SODIUM SPRINKLE 125 MG CAP.DR 500 MG PO ×3 (05:30→21:03)
[2020-08-06 05:39] LABS: Hematocrit 37.6 % (37.0-47.0); Hemoglobin 11.5 g/dL (12.0-15.0); Mean Corpuscular HGB Conc 30.6 g/dl (32-36); Mean Corpuscular Volume 101.3 fl (80-100); Platelet Count Result 484 k/mm3 (150-375); Red Blood Count 3.71 M/mm3 (4.2-5.4); Red Cell Distribution Width 16.4 % (11.5-14.5); White Blood Count 12.8 K/mm3 (4.5-10.0)
[2020-08-06 05:56] LABS: Alanine Aminotransferase 21 U/L (4-35); Albumin Level 2.3 g/dL (3.5-5.1); Alkaline Phosphatase 95 U/L (38-126); Anion Gap 3 mmol/L (8-16); Aspartate Amino Transferase 35 U/L (14-36); Bilirubin,Total 0.3 mg/dL (0.2-1.3); Blood Urea Nitrogen 32 mg/dL (7-17); Calcium 8.5 mg/dL (8.4-10.2); Carbon Dioxide 31 mmol/L (22-30); Chloride 103 mmol/L (98-107); Estimated CRCL calculation 73 ml/min; Estimated Glomerular Filt Rate > 60; Glucose 86 mg/dL (65-105); Potassium 3.9 mmol/L (3.4-5.0); Sodium 137 mmol/L (137-145)
--- NOTE | 2020-08-06 08:39 | PM.IMPN ---
Progress Note: A&P Assessment and Plan (1) Pneumonia: Qualifiers: Laterality: bilateral Lung location: unspecified part of lung Pneumonia type: due to unspecified organism Qualified Code(s): J18.9 - Pneumonia, unspecified organism Code(s): J18.9 - Pneumonia, unspecified organism Status: Acute Assessment and Plan: Probably community-acquired pneumonia repeat chest x-ray today Monitor CBC Continue cefepime and doxycycline pending repeat CBC (2) Altered mental status: Qualifiers: Altered mental status type: unspecified Qualified Code(s): R41.82 - Altered mental status, unspecified Code(s): R41.82 - Altered mental status, unspecified Status: Acute Assessment and Plan: Most likely acute metabolic encephalopathy secondary to pneumonia complicated with dementia. Supportive care continue to hold Lexapro and Seroquel for today mental status improved ammonia was reviewed (3) Acute respiratory failure with hypoxia: Code(s): J96.01 - Acute respiratory failure with hypoxia Status: Acute Assessment and Plan: Secondary to hypoxia On supplemental oxygen by nasal cannula Try and keep oxygen saturation at 94% Continue antibiotic and inhaler treatment (4) THANH (acute kidney injury): Code(s): N17.9 - Acute kidney failure, unspecified Status: Acute Assessment and Plan: Currently BUN and creatinine at patient's baseline her creatinine of see late in between 1.1-1.8 (5) Alzheimer's dementia: Code(s): G30.9 - Alzheimer's disease, unspecified; F02.80 - Dementia in other diseases classified elsewhere without behavioral disturbance Status: Chronic Assessment and Plan: Continue donepezil continue memantine Hold Seroquel Continue Buspirone (6) Seizure: Code(s): R56.9 - Unspecified convulsions Status: Acute Assessment and Plan: Continue divalproex , ammonia level (7) Electrolyte imbalance: Code(s): E87.8 - Other disorders of electrolyte and fluid balance, not elsewhere classified Status: Acute Assessment and Plan: Acute hypernatremia encourage hydration Acute hypokalemia replace pending repeat CMP (8) Acute on chronic diastolic (congestive) heart failure: Code(s): I50.33 - Acute on chronic diastolic (congestive) heart failure Status: Acute Assessment and Plan: Patient has significant edema upper and lower extremity Patient is short of breath treated withIV Lasix 40 mg twice a day for 3 doses on 08/05/2020 start oral Lasix today Most likely patient has acute and of chronic diastolic CHF exacerbation developed during hospitalization Subjective Date/time seen: 08/06/20 08:39 Interval history: Patient is 60-year-old female with history of severe dementia a resident of nursing sent to emergency department with acute mental status change unfortunately patient unable to provide any review of symptoms or history, upon arrival patient was hypoxic requiring supplemental oxygen, patient had a CTA scan of the chest did not show any PE, patient is found to have pneumonia suspect community-acquired pneumonia being treated with cefepime and doxycycline. Will continue to monitor will have a PT OT evaluate the patient and further recommendation to follow. Patient is poor historian due severe dementia Patient is more alert today Seroquel and Lexapro on hold since 08/05/2020 probably resume at lower dose once patient is more awake evaluate daily I am seeing the patient for pneumonia Exam Narrative: Exam Narrative: Sleepy Chest positive scattered crackles and wheeze Abdomen nontender nondistended CVS S1 + S2 Bilateral lower extremity edema Objective Data Vital Signs Vital Signs: Vital Signs - 24 hr 08/05/20 09:10 08/05/20 12:00 08/05/20 16:00 Temperature Pulse Rate 85 89 Respiratory Rate Blood Pressure Pulse Oximetry 96 08/05/20 1
[2020-08-06] MEDS: FUROSEMIDE INJ 40 MG/4 ML VIAL IV PUSH (09:18)
[2020-08-06] MEDS: ENOXAPARIN 40 MG/0.4 ML SYRINGE SUB-Q (09:18)
[2020-08-06] MEDS: ASPIRIN 81 MG CHEWABLE TABLET PO (09:18)
[2020-08-06] MEDS: busPIRone HCL 10 MG TABLET PO ×3 (09:19→16:22)
[2020-08-06] MEDS: DONEPEZIL HCL 10 MG TABLET PO (09:19)
[2020-08-06] MEDS: MEMANTINE 10 MG TABLET PO ×2 (09:19→21:03)
[2020-08-06] MEDS: HALOPERIDOL 1 MG TABLET 2 MG PO ×2 (09:19→21:03)
[2020-08-06 09:34] LABS: Basophils Percent Auto 0.3 % (0.2-1.2); Eosinophils Absolute Auto 0.3 K/mm3 (0-0.3); Immature Granulocyte Absolute 2.14 K/mm3 (0.00-0.031); Immature Granulocyte Percent A 16.3 % (0-0.5); Lymphocytes Absolute Auto 3.61 K/mm3 (0.9-3.2); Lymphocytes Percent Auto 27.4 % (18.3-44.2); Monocytes Percent Auto 7.5 % (2.6-8.5); Neutrophils Absolute Auto 6.1 K/mm3 (1.3-6.7); Neutrophils Percent Auto 46.5 % (45.5-73.1); Nucleated Red Blood Cells Absolute Auto 0.1 K/mm3 (0.0-0.012)
[2020-08-06] MEDS: FUROSEMIDE 20 MG TABLET PO (16:22)
[2020-08-07] VITALS (12 sets, daily range): BP systolic 140–171; BP diastolic 67–94; PULSE 72–113; RESP 16–18; TEMP 36.3–36.7; O2SAT 92–98
[2020-08-07 05:37] LABS: Hemoglobin 11.9 g/dL (12.0-15.0); Mean Corpuscular HGB Conc 32.2 g/dl (32-36); Mean Corpuscular Hemoglobin 32.2 pg (26-34); Mean Corpuscular Volume 100.3 fl (80-100); Mean Platelet Volume 9.9 fl (7.4-10.4); Platelet Count Result 492 k/mm3 (150-375); Red Blood Count 3.69 M/mm3 (4.2-5.4); Red Cell Distribution Width 16.1 % (11.5-14.5)
[2020-08-07] MEDS: DIVALPROEX SODIUM SPRINKLE 125 MG CAP.DR 500 MG PO ×3 (05:47→21:07)
[2020-08-07] MEDS: LEVOTHYROXINE SODIUM 50 MCG TABLET PO (05:47)
[2020-08-07 05:57] LABS: Alanine Aminotransferase 20 U/L (4-35); Albumin Level 2.5 g/dL (3.5-5.1); Alkaline Phosphatase 123 U/L (38-126); Anion Gap 6 mmol/L (8-16); Aspartate Amino Transferase 31 U/L (14-36); Bilirubin,Total 0.3 mg/dL (0.2-1.3); Blood Urea Nitrogen 34 mg/dL (7-17); Calcium 8.6 mg/dL (8.4-10.2); Carbon Dioxide 31 mmol/L (22-30); Chloride 99 mmol/L (98-107); Estimated CRCL calculation 73 ml/min; Estimated Glomerular Filt Rate > 60; Glucose 108 mg/dL (65-105); Potassium 3.4 mmol/L (3.4-5.0); Sodium 136 mmol/L (137-145)
[2020-08-07] MEDS: HALOPERIDOL 1 MG TABLET 2 MG PO ×2 (09:09→20:26)
[2020-08-07] MEDS: ENOXAPARIN 40 MG/0.4 ML SYRINGE SUB-Q (09:09)
[2020-08-07] MEDS: MEMANTINE 10 MG TABLET PO ×2 (09:10→20:26)
[2020-08-07] MEDS: FUROSEMIDE 20 MG TABLET PO ×2 (09:10→17:22)
[2020-08-07] MEDS: busPIRone HCL 10 MG TABLET PO ×3 (09:10→17:22)
[2020-08-07] MEDS: ASPIRIN 81 MG CHEWABLE TABLET PO (09:10)
[2020-08-07] MEDS: DONEPEZIL HCL 10 MG TABLET PO (09:11)
--- NOTE | 2020-08-07 11:47 | PCNFU ---
Nutrition Follow-Up Complete: Increased Protein Needs as related to wounds as evidenced by Deep Tissue Pressure Ulcer. Goal: Meet estimated nutritional needs Progressing towards goal. We will continue current goal. Pt current nutrition is Soft, Bite Sized, Level 6/ Heart Healthy with Zak BID Last recorded weight is 67.3 kg, no new weight to report. Recommend: new weight. Bowel Motility:+BM reported 08/06 Labs Reviewed:Cr 0.6,BUN 34,Alb 2.5,Na 136 Meds Noted:Namenda,Seroquel,Lasix, Lovenox, Lexapro, Aricept, Buspar. Additional Notes: Nutrition follow up. Patient is eating 75% of most trays. Feeder. Wounds noted: PU on heels, Zak BID for wound healing. Agree with diet orders. Monitoring: Will monitor every 5 days.
--- NOTE | 2020-08-07 13:50 | PM.IMPN ---
Progress Note: A&P Assessment and Plan (1) Pneumonia: Qualifiers: Laterality: bilateral Lung location: unspecified part of lung Pneumonia type: due to unspecified organism Qualified Code(s): J18.9 - Pneumonia, unspecified organism Code(s): J18.9 - Pneumonia, unspecified organism Status: Acute Assessment and Plan: [facility] Continue cefepime and doxycycline IMPROVED (2) Altered mental status: Qualifiers: Altered mental status type: unspecified Qualified Code(s): R41.82 - Altered mental status, unspecified Code(s): R41.82 - Altered mental status, unspecified Status: Acute Assessment and Plan: Most likely acute metabolic encephalopathy secondary to pneumonia complicated with dementia. Supportive care continue to hold Lexapro and Seroquel for today mental status improved ammonia was reviewed (3) Acute respiratory failure with hypoxia: Code(s): J96.01 - Acute respiratory failure with hypoxia Status: Acute Assessment and Plan: Secondary to hypoxia On supplemental oxygen by nasal cannula Try and keep oxygen saturation at 94% Continue antibiotic and inhaler treatment (4) THANH (acute kidney injury): Code(s): N17.9 - Acute kidney failure, unspecified Status: Acute Assessment and Plan: Currently BUN and creatinine at patient's baseline her creatinine of see late in between 1.1-1.8 CONTINUE TO MONITOR (5) Alzheimer's dementia: Code(s): G30.9 - Alzheimer's disease, unspecified; F02.80 - Dementia in other diseases classified elsewhere without behavioral disturbance Status: Chronic Assessment and Plan: Continue donepezil continue memantine Hold Seroquel Continue Buspirone (6) Seizure: Code(s): R56.9 - Unspecified convulsions Status: Acute Assessment and Plan: Continue divalproex STABLE (7) Electrolyte imbalance: Code(s): E87.8 - Other disorders of electrolyte and fluid balance, not elsewhere classified Status: Acute Assessment and Plan: Acute hypernatremia PUSH P.O. ORAL FLUIDS CONTINUE TO MONITOR REPLACE K NEEDED (8) Acute on chronic diastolic (congestive) heart failure: Code(s): I50.33 - Acute on chronic diastolic (congestive) heart failure Status: Acute Assessment and Plan: Patient has significant edema upper and lower extremity Patient is short of breath treated withIV Lasix 40 mg twice a day for 3 doses on 08/05/2020 start oral Lasix today Most likely patient has acute and of chronic diastolic CHF exacerbation developed during hospitalization LIKELY FLUID OVERLOAD PATIENT TO WITH LOW MOBILITY AND HAS BEEN RECEIVING IV FLUIDS CONTINUE TO MONITOR DAILY INTAKE AND OUTPUT Subjective Date/time seen: 08/07/20 13:50 Interval history: Patient is 60-year-old female with history of severe dementia a resident of nursing sent to emergency department with acute mental status change unfortunately patient unable to provide any review of symptoms or history, upon arrival patient was hypoxic requiring supplemental oxygen, patient had a CTA scan of the chest did not show any PE, patient is found to have pneumonia suspect community-acquired pneumonia being treated with cefepime and doxycycline. Will continue to monitor will have a PT OT evaluate the patient and further recommendation to follow. Patient is poor historian due severe dementia Patient is more alert today Seroquel and Lexapro on hold since 08/05/2020 probably resume at lower dose once patient is more awake evaluate daily Review of Systems Review of Systems: ROS unobtainable: Yes unobtainable due to medical condition Exam Narrative: Exam Narrative: LAYING IN BED Const: General: comfortable, no acute distress, well developed, alert and awake Nutritional Appearance: average body habitus Orientation/consciousness: Other orientation findings (ADVANCED
[2020-08-08] VITALS (11 sets, daily range): BP systolic 133–149; BP diastolic 44–72; PULSE 72–100; RESP 12–16; TEMP 36–37; O2SAT 95–100
[2020-08-08] MEDS: LEVOTHYROXINE SODIUM 50 MCG TABLET PO (05:53)
[2020-08-08] MEDS: DIVALPROEX SODIUM SPRINKLE 125 MG CAP.DR 500 MG PO ×3 (05:53→21:07)
[2020-08-08] MEDS: ERGOCALCIFEROL 50,000 UNIT CAPSULE 50000 UNITS PO (09:25)
[2020-08-08] MEDS: busPIRone HCL 10 MG TABLET PO ×3 (09:26→18:28)
[2020-08-08] MEDS: HALOPERIDOL 1 MG TABLET 2 MG PO ×2 (09:26→21:07)
[2020-08-08] MEDS: ASPIRIN 81 MG CHEWABLE TABLET PO (09:26)
[2020-08-08] MEDS: MEMANTINE 10 MG TABLET PO ×2 (09:27→21:07)
[2020-08-08] MEDS: FUROSEMIDE 20 MG TABLET PO ×2 (09:27→18:28)
[2020-08-08] MEDS: ENOXAPARIN 40 MG/0.4 ML SYRINGE SUB-Q (09:27)
[2020-08-08] MEDS: DONEPEZIL HCL 10 MG TABLET PO (09:27)
[2020-08-08 11:13] LABS: Alanine Aminotransferase 20 U/L (4-35); Albumin Level 2.4 g/dL (3.5-5.1); Alkaline Phosphatase 118 U/L (38-126); Anion Gap 5 mmol/L (8-16); Aspartate Amino Transferase 45 U/L (14-36); Bilirubin,Total 0.5 mg/dL (0.2-1.3); Blood Urea Nitrogen 24 mg/dL (7-17); Calcium 8.4 mg/dL (8.4-10.2); Carbon Dioxide 30 mmol/L (22-30); Chloride 98 mmol/L (98-107); Estimated CRCL calculation 85 ml/min; Estimated Glomerular Filt Rate > 60; Glucose 97 mg/dL (65-105); Potassium 3.7 mmol/L (3.4-5.0); Sodium 133 mmol/L (137-145)
--- NOTE | 2020-08-08 16:25 | PM.IMPN ---
Progress Note: A&P Assessment and Plan (1) Pneumonia: Qualifiers: Laterality: bilateral Lung location: unspecified part of lung Pneumonia type: due to unspecified organism Qualified Code(s): J18.9 - Pneumonia, unspecified organism Code(s): J18.9 - Pneumonia, unspecified organism Status: Acute Assessment and Plan: PATIENT RESIDES AT [facility] Continue cefepime and doxycycline IMPROVED (2) Altered mental status: Qualifiers: Altered mental status type: unspecified Qualified Code(s): R41.82 - Altered mental status, unspecified Code(s): R41.82 - Altered mental status, unspecified Status: Acute Assessment and Plan: Most likely acute metabolic encephalopathy secondary to pneumonia complicated with dementia. Supportive care continue to hold Lexapro and Seroquel for today mental status improved ammonia was reviewed (3) Acute respiratory failure with hypoxia: Code(s): J96.01 - Acute respiratory failure with hypoxia Status: Acute Assessment and Plan: Secondary to hypoxia On supplemental oxygen by nasal cannula Try and keep oxygen saturation at 94% Continue antibiotic and inhaler treatment (4) THANH (acute kidney injury): Code(s): N17.9 - Acute kidney failure, unspecified Status: Acute Assessment and Plan: Currently BUN and creatinine at patient's baseline her creatinine of see late in between 1.1-1.8 CONTINUE TO MONITOR (5) Alzheimer's dementia: Code(s): G30.9 - Alzheimer's disease, unspecified; F02.80 - Dementia in other diseases classified elsewhere without behavioral disturbance Status: Chronic Assessment and Plan: Continue donepezil continue memantine Hold Seroquel Continue Buspirone (6) Seizure: Code(s): R56.9 - Unspecified convulsions Status: Acute Assessment and Plan: Continue divalproex STABLE (7) Electrolyte imbalance: Code(s): E87.8 - Other disorders of electrolyte and fluid balance, not elsewhere classified Status: Acute Assessment and Plan: Acute hypernatremia PUSH P.O. ORAL FLUIDS CONTINUE TO MONITOR REPLACE K NEEDED (8) Acute on chronic diastolic (congestive) heart failure: Code(s): I50.33 - Acute on chronic diastolic (congestive) heart failure Status: Acute Assessment and Plan: Patient has significant edema upper and lower extremity Patient is short of breath treated withIV Lasix 40 mg twice a day for 3 doses on 08/05/2020 start oral Lasix today Most likely patient has acute and of chronic diastolic CHF exacerbation developed during hospitalization LIKELY FLUID OVERLOAD PATIENT TO WITH LOW MOBILITY AND HAS BEEN RECEIVING IV FLUIDS CONTINUE TO MONITOR DAILY INTAKE AND OUTPUT 08/08/2020 Patient is significantly improved she is on 1 L will wean off oxygen Continue IV antibiotic therapy Continue current care Subjective Date/time seen: 08/08/20 16:25 patient opens her eyes but does not respond. Aide bedside and reports that she is always like this Secondary to her schizophrenia and advanced dementia , but she does have a good appetite and she does eat well when she is fed. Exam Narrative: Exam Narrative: LAYING IN BED Const: General: comfortable, no acute distress, well developed, alert, awake and ill appearing acutely Nutritional Appearance: average body habitus Orientation/consciousness: lethargic and Other orientation findings (ADVANCED DEMENTIA) Limitations: altered mental status (Advanced dementia) HENMT: Head: normal to inspection, normocephalic and atraumatic General nose exam: Normal external nose present Face and sinus: normal facial exam Eyes: General: appearance normal, both eyes and all related structures EOM: EOMs intact bilaterally Neck: Neck: full ROM, no lymphadenopathy and no JVD Thyroid: thyroid normal Lymphatic: no lymphadenopathy noted Resp: Effort & Inspection: normal r
[2020-08-09] VITALS (12 sets, daily range): BP systolic 105–159; BP diastolic 48–78; PULSE 62–82; RESP 12–16; TEMP 35.3–36.8; O2SAT 97–100
[2020-08-09] MEDS: DIVALPROEX SODIUM SPRINKLE 125 MG CAP.DR 500 MG PO ×3 (05:33→21:30)
[2020-08-09] MEDS: LEVOTHYROXINE SODIUM 50 MCG TABLET PO (05:33)
[2020-08-09] MEDS: ASPIRIN 81 MG CHEWABLE TABLET PO (08:10)
[2020-08-09] MEDS: HALOPERIDOL 1 MG TABLET 2 MG PO ×2 (08:11→21:30)
[2020-08-09] MEDS: busPIRone HCL 10 MG TABLET PO ×3 (08:11→17:04)
[2020-08-09] MEDS: MEMANTINE 10 MG TABLET PO ×2 (08:11→21:30)
[2020-08-09] MEDS: ENOXAPARIN 40 MG/0.4 ML SYRINGE SUB-Q (08:11)
[2020-08-09] MEDS: FUROSEMIDE 20 MG TABLET PO ×2 (08:11→17:04)
[2020-08-09] MEDS: DONEPEZIL HCL 10 MG TABLET PO (08:11)
--- NOTE | 2020-08-09 14:27 | PM.DS ---
DS: Admitting Diagnosis Admitting Diagnosis Admitting Diagnosis: (1) Pneumonia: Qualifiers: Laterality: bilateral Lung location: unspecified part of lung Pneumonia type: due to unspecified organism Qualified Code(s): J18.9 - Pneumonia, unspecified organism Code(s): J18.9 - Pneumonia, unspecified organism Status: Acute Assessment and Plan: Patient has been started on cefepime and doxycycline Patient resides at a custodial Await cultures (2) Altered mental status: Qualifiers: Altered mental status type: unspecified Qualified Code(s): R41.82 - Altered mental status, unspecified Code(s): R41.82 - Altered mental status, unspecified Status: Acute Assessment and Plan: Likely secondary to 1. Supportive care (3) Acute respiratory failure with hypoxia: Code(s): J96.01 - Acute respiratory failure with hypoxia Status: Acute Assessment and Plan: On supplemental oxygen 5 L by nasal cannula Try and keep oxygen saturation at 94% Breathing treatments (4) THANH (acute kidney injury): Code(s): N17.9 - Acute kidney failure, unspecified Status: Acute Assessment and Plan: Currently BUN and creatinine at patient's baseline her creatinine of see late in between 1.1-1.8 (5) Alzheimer's dementia: Code(s): G30.9 - Alzheimer's disease, unspecified; F02.80 - Dementia in other diseases classified elsewhere without behavioral disturbance Status: Chronic Assessment and Plan: Continue donepezil continue memantine Continue Seroquel Continue Buspirone (6) Seizure: Code(s): R56.9 - Unspecified convulsions Status: Acute Assessment and Plan: Continue divalproex DS: Discharge Diagnosis Discharge Diagnosis (1) Pneumonia: Qualifiers: Laterality: bilateral Lung location: unspecified part of lung Pneumonia type: due to unspecified organism Qualified Code(s): J18.9 - Pneumonia, unspecified organism Code(s): J18.9 - Pneumonia, unspecified organism Status: Acute (2) Electrolyte imbalance: Code(s): E87.8 - Other disorders of electrolyte and fluid balance, not elsewhere classified Status: Acute (3) Altered mental status: Qualifiers: Altered mental status type: unspecified Qualified Code(s): R41.82 - Altered mental status, unspecified Code(s): R41.82 - Altered mental status, unspecified Status: Acute (4) Acute respiratory failure with hypoxia: Code(s): J96.01 - Acute respiratory failure with hypoxia Status: Acute (5) THANH (acute kidney injury): Code(s): N17.9 - Acute kidney failure, unspecified Status: Acute (6) Seizure: Code(s): R56.9 - Unspecified convulsions Status: Acute (7) Acute on chronic kidney failure: Code(s): N17.9 - Acute kidney failure, unspecified; N18.9 - Chronic kidney disease, unspecified Status: Acute (8) Chronic kidney disease, stage 3: Code(s): N18.30 - Chronic kidney disease, stage 3 unspecified Status: Acute (9) Alzheimer's dementia: Code(s): G30.9 - Alzheimer's disease, unspecified; F02.80 - Dementia in other diseases classified elsewhere without behavioral disturbance Status: Chronic DS: Summary Hospital Course Reason for hospitalization: acute respiratory failure Hospital Course: 60-year-old female with past medical history significant for dementia patient resides at a custodial she was brought to the emergency room after staff concerns for altered mental status upon arrival to emergency room patient was found to be hypoxic requiring supplemental oxygen. Preliminary workup was significant for a CT of chest with bilateral bibasilar pneumonia. Patient was unable to give any history due to her advanced dementia. Patient only speaks random words according to custodial papers she patient's baseline she is not oriented to self time space or situation. Riddhi
--- NOTE | 2020-08-09 15:44 | PC.NURSE ---
On 08/09/20, the student, [Maday Moore ], provided care and completed [facility] documentation on this patient. I have reviewed the student's documentation and agree with the findings.
== END 2020-08-09 23:18 | DRG 133 ==
LOC: ANHED 15:15 → ANH3MED 17:38
PROVIDERS: Family Medicine; Internal Medicine; Admitting Provider Internal Medicine; Emergency Provider Emergency Medicine; Visit Provider Hospitalist
DX: J96.01 Acute respiratory failure with hypoxia (principal); J18.9 Pneumonia, unspecified organism; G93.41 Metabolic encephalopathy; N17.9 Acute kidney failure, unspecified; G30.9 Alzheimer's disease, unspecified; F02.80 Dementia in other diseases classified elsewhere, unspecified severity, without behavioral disturbance, psychotic disturbance, mood disturbance, and anxiety; F41.9 Anxiety disorder, unspecified; I12.9 Hypertensive chronic kidney disease with stage 1 through stage 4 chronic kidney disease, or unspecified chronic kidney disease; N18.30 Chronic kidney disease, stage 3 unspecified; E03.9 Hypothyroidism, unspecified; D53.9 Nutritional anemia, unspecified; F20.9 Schizophrenia, unspecified; R56.9 Unspecified convulsions; Z79.82 Long term (current) use of aspirin; E87.8 Other disorders of electrolyte and fluid balance, not elsewhere classified; E87.0 Hyperosmolality and hypernatremia; E87.6 Hypokalemia; I13.0 Hypertensive heart and chronic kidney disease with heart failure and stage 1 through stage 4 chronic kidney disease, or unspecified chronic kidney disease; I50.33 Acute on chronic diastolic (congestive) heart failure
CPT/HCPCS: 36415; 36600; 51701; 70450; 71045; 71275; 80048; 80053; 80164; 81001; 82140; 82805; 83036; 84484; 85025; 85027; 87040; 92610; 93005; 96361; 96365; 96375; 99285; A9270; J0456; J0692; J0696; J1650; J1940; J7030; Q9967

== ENCOUNTER 2020-08-26 12:55 | Inpatient (IN) | payer BC, SELFPAY ==
[2020-08-26] VITALS (26 sets, daily range): BP systolic 64–158; BP diastolic 40–122; PULSE 86–131; RESP 17–32; TEMP 36.6–38.3; O2SAT 86–100
--- NOTE | ~2020-08-26 | XR_ITS ---
EXAMINATION: XR chest ET placement DATE: 09/01/2020 14:54 INDICATION: Intubation. TECHNIQUE: A single frontal view of the chest was obtained. COMPARISON: Chest single view at 5:11 AM, chest CT 08/26/2020 FINDINGS: There is a small left pleural effusion. There are airspace opacities in the perihilar regio ns and lower lung zones, left worse than right. No pneumothorax. The heart size is normal. The endotr acheal tube tip is 2.2 cm above the sarah. The nasogastric tube tip is beyond the inferior margin of the radiograph, but at least to the stomach. A right internal jugular central venous catheter is see n with tip at the superior cavoatrial junction. IMPRESSION: 1. Airspace opacities in the perihilar regions and lower lung zones, left worse than right with mild improvement on the right, consistent with pneumonia. 2. Small left pleural effusion with mild improvement. Reviewed, dictated and finalized at location A.
--- NOTE | ~2020-08-26 | XR_ITS ---
EXAMINATION: XR chest port-a-cath/central DATE: 08/29/2020 15:18 INDICATION: Central line placement. TECHNIQUE: A single frontal view of the chest was obtained. COMPARISON: Chest single view at 5:13 AM, chest CT 08/26/2020 FINDINGS: There is a small left pleural effusion. There are airspace opacities in the perihilar regio ns and at left lung base. No pneumothorax. The heart size is normal. The endotracheal tube tip is 3.0 cm above the sarah. The nasogastric tube tip is beyond the inferior margin of the radiograph, but a t least to the stomach. A right internal jugular central venous catheter is seen with tip in the prox imal right atrium. IMPRESSION: 1. Central line tip in proximal right atrium. 2. Airspace opacities in the perihilar regions and at left lung base with worsening on the left, cons istent with pneumonia. 3. Small left pleural effusion. Reviewed, dictated and finalized at location A. IMPRESSION: 1. Central line tip in proximal right atrium. 2. Airspace opacities in the perihilar regions and at left lung base with worse nirmal on the left, consistent with pneumonia. 3. Small left pleural effusion.
--- NOTE | ~2020-08-26 | XR_ITS ---
EXAMINATION: XR chest 1V portable DATE: 09/04/2020 05:45 INDICATION: Pneumonia. Acute respiratory failure. TECHNIQUE: frontal view of the chest was obtained. COMPARISON: Chest radiograph dated 09/03/2020 FINDINGS: Endotracheal tube tip 4.3 cm above the sarah. Nasogastric tube extends below the left hemidiaphragm with distal tip collimated off the study. Right internal jugular central venous catheter with distal tip in the high right atrium. Persistent opacities in the left lower lung zone with blunting at the costophrenic angle consistent w ith small pleural effusion and associated basilar atelectasis and/or pneumonia. The cardiomediastinal silhouette is normal. IMPRESSION: 1. Unchanged small left pleural effusion with associated left basilar atelectasis and/or pneumonia. Reviewed, dictated and finalized at location A. IMPRESSION: 1. Unchanged small left pleural effusion with associated left basilar atelectas is and/or pneumonia.
--- NOTE | ~2020-08-26 | XR_ITS ---
XR chest 1V portable 09/02/2020 06:07 Indication: Pneumonia. Respiratory failure. Procedure: AP portable chest Comparison: Comparison to multiple prior studies sequentially, with oldest reviewed study dated 08/30. Findings: Endotracheal tube tip 3.5 cm above the sarah. NG tube in the stomach. PICC line tip at the cavoatrial junction. Bibasilar airspace disease. Layering left pleural effusion. No pneumothorax. Impression: 1: Improving bibasilar airspace disease, likely resolving pneumonia and/or atelectasis. 2: Small left pleural effusion. Reviewed, dictated and finalized at location A. Impression: 1: Improving bibasilar airspace disease, likely resolving pneumonia and/or atel ectasis. 2: Small left pleural effusion.
--- NOTE | ~2020-08-26 | XR_ITS ---
EXAMINATION: XR chest 1V portable INDICATION: Endotracheal tube repositioning TECHNIQUE: Portable AP chest at 1413 hours COMPARISON: 0513 hours FINDINGS: The repositioned endotracheal tube ends approximately 1.9 cm above the sarah. The nasogast kaitlyn tube is followed as far as the stomach. Its tip is beyond the inferior margin of the radiograph. There is a right internal jugular central venous catheter ending with its tip at the distal superior vena cava. A small left pleural effusion is unchanged. There are stable left basilar airspace opaciti es. Right basilar airspace opacities have improved. No pneumothorax is identified. The cardiomediasti nal silhouette is stable. IMPRESSION: 1. Repositioned endotracheal tube approximately 1.9 cm above the sarah. 2. Small left pleural effusion. 3. Stable left and improved right basilar airspace opacities, consistent with atelectasis versus pneu monia. Reviewed, dictated and finalized at location A. IMPRESSION: 1. Repositioned endotracheal tube approximately 1.9 cm above the sarah. 2. Small left pleural effusion. 3. Stable left and improved right basilar airspace opacities, consistent with a telectasis versus pneumonia.
--- NOTE | ~2020-08-26 | XR_ITS ---
EXAMINATION: XR chest 1V portable DATE: 08/28/2020 06:05 INDICATION: Acute respiratory failure TECHNIQUE: frontal view of the chest was obtained. COMPARISON: Chest radiograph and CT dated 08/26/2020 FINDINGS: Endotracheal tube tip 4.0 cm above the sarah. Nasogastric tube extends below the left hemidiaphragm with distal tip collimated off the study. Persistent region of consolidation in the left lower lobe as well as more subtle opacities in the rig ht lower lung zone. No pulmonary edema or pneumothorax. Very small left pleural effusion tracking bianca ng the inferolateral aspect of the major fissure. The cardiomediastinal silhouette is normal. IMPRESSION: 1. Persistent opacities in the lower lung zones, left greater than right, likely combination of atele ctasis and pneumonia. 2. Very small left pleural effusion. Reviewed, dictated and finalized at location A. IMPRESSION: 1. Persistent opacities in the lower lung zones, left greater than right, likel y combination of atelectasis and pneumonia. 2. Very small left pleural effusion.
--- NOTE | ~2020-08-26 | XR_ITS ---
EXAMINATION: XR chest 1V portable DATE: 08/30/2020 05:36 INDICATION: Acute respiratory failure TECHNIQUE: frontal view of the chest was obtained. COMPARISON: Chest radiograph dated 08/29/2020 FINDINGS: Endotracheal tube tip 5.0 cm above the sarah. Nasogastric tube extends below the left hemidiaphragm with distal tip collimated off the study. Right internal jugular central venous catheter with distal tip near the superior cavoatrial junction. Gradient of hazy airspace opacities in the bilateral mid and lower lung zones consistent with small b ilateral posteriorly layering pleural effusions. More patchy and bandlike opacities in the bilateral mid and lower lung zones consistent with associated atelectasis and/or pneumonia. The cardiomediastin al silhouette is normal. IMPRESSION: 1. Slight increase in small bilateral posteriorly layering pleural effusions. 2. Unchanged superimposed more patchy bilateral atelectasis and/or pneumonia. Reviewed, dictated and finalized at location A.
--- NOTE | ~2020-08-26 | CT_ITS ---
EXAMINATION: CTA chest PE protocol DATE: 08/26/2020 15:27 INDICATION: Hypoxia. Elevated d-dimer. Found unresponsive. TECHNIQUE: Computed tomography angiography (CTA) of the chest was performed with 100 mL Omnipaque-350 intravenous contrast timed to evaluate the pulmonary arteries. Coronal maximum intensity projection 3D-reconstructions were created by the technologist. Automated exposure control and iterative reconst ruction technique were employed. Exam dose: 405.50 mGy-cm total exam DLP. COMPARISON: 08/26/2020 portable AP chest 07/31/2020 CT pulmonary scan FINDINGS: Endotracheal is present. An NG tube extends into the body the stomach. There is diagnostic contrast enhancement of the pulmonary arteries and no evidence of pulmonary embol ism. No thoracic aortic aneurysm or dissection. Heart size is normal. No pericardial effusion. Minimal bilateral pleural effusions. There are patchy right greater than left upper lobe infiltrates and patchy middle lobe infiltrate, mi ldly increased since 07/31/2020. There is bilateral lower lobe atelectasis/consolidation, left greater than right, but improved bilate rally since 07/31/2020. T11 vertebral body hemangioma. IMPRESSION: No evidence of pulmonary embolism or thoracic aortic aneurysm or dissection Bilateral lower lobe atelectasis/consolidation, improved since 07/31/2020 Scattered patchy infiltrates throughout the lungs, mildly increased since 07/31/2020 Minimal bilateral pleural effusions Reviewed, dictated and finalized at Location A. Reviewed, dictated and finalized at location A. IMPRESSION: No evidence of pulmonary embolism or thoracic aortic aneurysm or d issection Bilateral lower lobe atelectasis/consolidation, improved since 07/31/2020 Scattered patchy infiltrates throughout the lungs, mildly increased since 2020 Minimal bilateral pleural effusions
--- NOTE | ~2020-08-26 | XR_ITS ---
EXAMINATION: XR chest 1V portable DATE: 08/31/2020 05:35 INDICATION: Acute respiratory failure TECHNIQUE: frontal view of the chest was obtained. COMPARISON: Chest radiograph dated 08/30/2020 FINDINGS: Endotracheal tube tip 3.2 cm above the sarah. Nasogastric tube in the stomach. Right internal jugula r central venous catheter with distal tip at the high right atrium. Lung volumes are decreased. No significant change in airspace opacities in the bilateral lower lung z ones which could represent atelectasis and/or pneumonia. Small left pleural effusion. No pneumothorax . The cardiomediastinal silhouette is normal. Visualized bones and soft tissues are unremarkable. IMPRESSION: 1. No significant interval change in airspace opacities in bilateral lower lung zones consistent with atelectasis and/or pneumonia. 2. Small left pleural effusion. Reviewed, dictated and finalized at location A.
--- NOTE | ~2020-08-26 | US_ITS ---
EXAMINATION: US venous doppler UE DATE: 08/28/2020 12:42 INDICATION: Upper extremity swelling TECHNIQUE: Coombs scale images with and without compression and Doppler images of the upper extremity v eins were obtained. COMPARISON: None. FINDINGS: There is normal flow in the jugular, subclavian, axillary, brachial, basilic and left radial veins. T he ulnar veins are not evaluated due to edema and extremity stiffness. There is superficial thrombosi s in the cephalic veins. IMPRESSION: 1. No definite upper extremity deep venous thrombosis, although evaluation of the right radial and ul gordon veins is limited. 2: Superficial thrombosis of the cephalic veins. Reviewed, dictated and finalized at location B. IMPRESSION: 1. No definite upper extremity deep venous thrombosis, although evaluation of t he right radial and ulnar veins is limited. 2: Superficial thrombosis of the cephalic veins.
--- NOTE | ~2020-08-26 | XR_ITS ---
EXAMINATION: XR chest 1V portable DATE: 08/29/2020 05:32 INDICATION: Acute respiratory failure TECHNIQUE: frontal view of the chest was obtained. COMPARISON: Chest radiograph dated 08/28/2020 FINDINGS: Endotracheal tube tip 2.8 cm above the sarah. Nasogastric tube extends below the left hemidiaphragm with distal tip collimated off the study. Small lung volumes. Persistent opacities in the bilateral lower lung zones, left greater than right. No pleural effusion or pneumothorax. The cardiomediastinal silhouette is normal. IMPRESSION: 1. Small lung volumes with persistent opacities in the bilateral lower lung zones, left greater than right, which could represent pneumonia and/or atelectasis. Reviewed, dictated and finalized at location A. IMPRESSION: 1. Small lung volumes with persistent opacities in the bilateral lower lung zon es, left greater than right, which could represent pneumonia and/or atelectasis .
--- NOTE | ~2020-08-26 | XR_ITS ---
EXAMINATION: XR abdomen NG/feed tube insert INDICATION: Nasogastric tube placement TECHNIQUE: Portable AP KUB-NG at 1322 hours COMPARISON: None available FINDINGS: The nasogastric tube is in the stomach. No dilated loops of bowel are evident. There is mil d atelectasis of the lung bases. IMPRESSION: 1. Nasogastric tube in the stomach. Reviewed, dictated and finalized at location A.
--- NOTE | ~2020-08-26 | XR_ITS ---
XR chest 1V portable 09/01/2020 05:19 Indication: Acute respiratory failure Procedure: AP portable chest Comparison: Comparison to multiple prior studies sequentially, with oldest reviewed study dated 08/29. Findings: Endotracheal tube tip 3.5 cm above the sarah. PICC line tip near the cavoatrial junction. NG tube in the stomach. There are bilateral interstitial infiltrates centered in the hilar locations. Small left pleural effusion. No pneumothorax. Impression: 1: Bilateral perihilar interstitial infiltrates with focal consolidation right midlung zone. Differen tial diagnosis includes edema and pneumonia. 2: Small left pleural effusion. Reviewed, dictated and finalized at location A. Impression: 1: Bilateral perihilar interstitial infiltrates with focal consolidation right midlung zone. Differential diagnosis includes edema and pneumonia. 2: Small left pleural effusion.
--- NOTE | ~2020-08-26 | CT_ITS ---
EXAMINATION: CT brain wo con DATE: 08/26/2020 15:27 INDICATION: Altered mental state. Found unresponsive. Hypoxia. TECHNIQUE: Computed tomography (CT) of the head was performed without intravenous contrast. The mA wa s adjusted according to patient size. Iterative reconstruction technique was employed. Exam dose: 60 5.33 mGy-cm total exam DLP. COMPARISON: 07/31/2020 CT brain FINDINGS: There is central and cortical cerebral atrophy. There is nonspecific diminished attenuation of the cerebral white matter. No intracranial mass lesion or hemorrhage or cerebrovascular accident is evident. No midline shift or mass effect effect. No subdural or epidural hematoma is detected. No orbital mass lesion. No skull fracture or bone destruction. Endotracheal and nasogastric tubes are present. Mild echograms thickening of the right frontal sinus. The paranasal sinuses are otherwise unremarkabl e. Limited development and partial opacification of the mastoid air cells bilaterally. IMPRESSION: Central and cortical cerebral atrophy, considerably greater than expected for patient ag e Nonspecific white matter changes No acute intracranial finding or significant change since 07/31/2020 Reviewed, dictated and finalized at Location A. Reviewed, dictated and finalized at location A. IMPRESSION: Central and cortical cerebral atrophy, considerably greater than e xpected for patient age Nonspecific white matter changes No acute intracranial finding or significant change since 07/31/2020
--- NOTE | ~2020-08-26 | XR_ITS ---
EXAMINATION: XR chest 1V portable DATE: 09/03/2020 05:37 INDICATION: Pneumonia. Acute respiratory failure. TECHNIQUE: frontal view of the chest was obtained. COMPARISON: Chest radiograph dated 09/02/2020 FINDINGS: Endotracheal tube tip 4.8 cm above the sarah. Right internal jugular central venous catheter with di stal tip at the superior cavoatrial junction. Nasogastric tube extends below the left hemidiaphragm with distal tip collimated off the study. Persistent airspace opacities in the left lower lung zone with blunting at the costophrenic angle con sistent with small left pleural effusion with associated basilar atelectasis and/or pneumonia. Right lung remains clear. No pneumothorax or right-sided pleural effusion. Cardiomediastinal silhouette wit hin normal limits conifer rightward rotation of the patient. IMPRESSION: 1. Small left pleural effusion with associated left basilar atelectasis and/or pneumonia. Reviewed, dictated and finalized at location A.
--- NOTE | ~2020-08-26 | US_ITS ---
EXAMINATION:US venous doppler LE BI INDICATION:Leg swelling TECHNIQUE: Multiple grayscale, color flow and Doppler images of the right and left lower extremity de ep venous systems were obtained and reviewed. COMPARISON:No prior studies for comparison. FINDINGS: The common femoral, superficial femoral and popliteal veins demonstrate normal respiratory variation, augmentation and compressibility. Color flow is also seen within the posterior tibial, pe roneal, greater saphenous and profunda veins. IMPRESSION: 1: No lower extremity deep venous thrombosis. Reviewed, dictated and finalized at location B.
--- NOTE | ~2020-08-26 | CT_ITS ---
EXAMINATION: CT brain wo con DATE: 08/29/2020 08:12 INDICATION: Encephalopathy. TECHNIQUE: Computed tomography (CT) of the head was performed without intravenous contrast. The dose- length product was 605.33 mGy-cm. Automated exposure control and iterative reconstruction technique w ere employed. COMPARISON: CT dated 08/26/2020 FINDINGS: There is a generalized atrophy. There are scattered mild periventricular and subcortical wh ite matter changes, most likely related to small vessel ischemic disease (microangiopathy). There is compensatory dilation of the ventricles. There is mucosal thickening of the right maxillary and sphen oid sinuses. Small mastoid effusions. No depressed skull fractures. No acute intracranial hemorrhage, infarction, mass or mass effect. IMPRESSION: 1. No acute intracranial abnormality. 2: Chronic age-related findings. Reviewed, dictated and finalized at location B.
--- NOTE | ~2020-08-26 | XR_ITS ---
EXAMINATION: XR chest 1V portable DATE: 09/05/2020 05:59 INDICATION: Pneumonia. Acute respiratory failure. TECHNIQUE: frontal view of the chest was obtained. COMPARISON: Chest radiograph dated 09/04/2020 FINDINGS: Endotracheal tube tip 4.0 cm above the sarah. Right internal jugular central venous catheter with di stal tip near the superior cavoatrial junction. Nasogastric tube extends below the left hemidiaphrag m with distal tip collimated off the study. Persistent opacities in the left lower lung zone. No pneumothorax or right-sided pleural effusion. Th e cardiomediastinal silhouette is normal. IMPRESSION: 1. Unchanged small left pleural effusion with associated atelectasis and/or pneumonia in the left low er lung zone Reviewed, dictated and finalized at location A. IMPRESSION: 1. Unchanged small left pleural effusion with associated atelectasis and/or pne umonia in the left lower lung zone
--- NOTE | ~2020-08-26 | XR_ITS ---
EXAMINATION: XR chest ET placement INDICATION: Shortness of breath TECHNIQUE: Portable AP chest at 1321 hours COMPARISON: 08/06/2020 FINDINGS: The endotracheal tube ends approximately 5.3 cm above the sarah. The nasogastric tube is f ollowed as far as the stomach. Its tip is beyond the inferior margin of the radiograph. There is mini mal airspace opacity in the left lung base. A small right pleural effusion is suggested. There is no pneumothorax. The cardiomediastinal silhouette is normal. IMPRESSION: 1. Nasogastric and endotracheal tube insertion. 2. Left basilar airspace opacity, consistent with atelectasis versus pneumonia. 3. Small right pleural effusion. Reviewed, dictated and finalized at location A.
--- NOTE | 2020-08-26 13:01 | PC.NURSE ---
1303 20mg etomidate and 100mg succinylcholine given for rapid intubation by EDP. 1305 intubation completed by EDP. ET tube size 7.5, 23cm at the lip
--- NOTE | 2020-08-26 13:03 | ECG_ITS ---
Measurements Intervals [place] Rate: 114 P: 15 UT: 119 QRS: 54 QRSD: 77 T: 10 QT: 295 QTc: 407 Interpretive Statements SINUS TACHYCARDIA ANTEROSEPTAL INFARCT, AGE INDETERMINATE BASELINE ARTIFACT- I, III, AVR, AVL, AVF, V1, V6 ABNORMAL ECG Electronically Signed On 08-26-2020 19:23:41 CDT by Vinayak Chong D.O.
[2020-08-26 13:09] LABS: Alveolar/Arterial O2 Gradient 612.4 mmHg; Base Excess ABG 11.1 mEq/l (+/-2.0); Carboxyhemoglobin 0.3 % THb (0-2.0); Fractional Inspired Oxygen 100 %; HCO3 ABG 36.1 mEq/l (22.0-26.0); Methemoglobin ABG 0.1 %THb (0-1.5); Oxygen Content ABG 11.4 %vol (16.0-22.0); Oxygen Saturation ABG 87.1 % (95.0-100.0); Oxyhemoglobin 84.1 % THb (90.0-100.0); PCO2 ABG 50.6 mmHg (35.0-45.0); Reduced Hemoglobin 15.5 %THb (0-5.0); Total Hemoglobin 9.6 g/dL (12.0-18.0); pH ABG 7.471 (7.350-7.450)
[2020-08-26 13:10] LABS: Modified Allen's Test Pass; Site Drawn LEFT RADIAL
[2020-08-26 13:11] LABS: Device NON-REBREATHER MASK
[2020-08-26 13:20] LABS: Basophils Absolute Auto 0.1 K/mm3 (0.0-0.1); Basophils Percent Auto 0.6 % (0.2-1.2); Eosinophils Percent Auto 0.1 % (0-4.4); Hematocrit 30.5 % (37.0-47.0); Immature Granulocyte Absolute 0.06 K/mm3 (0.00-0.031); Immature Granulocyte Percent A 0.8 % (0-0.5); Lymphocytes Absolute Auto 3.27 K/mm3 (0.9-3.2); Lymphocytes Percent Auto 40.9 % (18.3-44.2); Mean Corpuscular HGB Conc 29.5 g/dl (32-36); Mean Corpuscular Hemoglobin 31.1 pg (26-34); Mean Corpuscular Volume 105.5 fl (80-100); Mean Platelet Volume 9.3 fl (7.4-10.4); Monocytes Absolute Auto 0.7 K/mm3 (0.1-0.6); Monocytes Percent Auto 8.1 % (2.6-8.5); Neutrophils Percent Auto 49.5 % (45.5-73.1); Nucleated Red Blood Cells Absolute Auto 0.1 K/mm3 (0.0-0.012); Nucleated Red Blood Cells Perc 1.4 % (0.0-0.2); Platelet Count Result 458 k/mm3 (150-375); Red Blood Count 2.89 M/mm3 (4.2-5.4); Red Cell Distribution Width 15.5 % (11.5-14.5)
[2020-08-26] MEDS: MIDAZOLAM HCL (*CRX) 2 MG/2 ML VIAL 4 MG IV PUSH (13:26)
[2020-08-26 13:30] LABS: Lactic Acid Reflex 2.1 mmol/L (0.7-2.1)
[2020-08-26 13:31] LABS: Anion Gap 4 mmol/L (8-16); Blood Urea Nitrogen 13 mg/dL (7-17); Calcium 8.8 mg/dL (8.4-10.2); Carbon Dioxide 37 mmol/L (22-30); Chloride 100 mmol/L (98-107); Estimated Glomerular Filt Rate > 60; Glucose 122 mg/dL (65-105); Sodium 141 mmol/L (137-145)
--- NOTE | 2020-08-26 14:08 | ED.GENADULT ---
HPI - General Adult General Chief complaint: Shortness of Breath/Dyspnea Stated complaint: sob Time Seen by Provider: 08/26/20 13:33 Source: patient History of Present Illness HPI narrative: Patient is a 60 y/o female brought in by EMS for SOB. Patient reportedly had pulse ox of 57% while on 2L/NC. Patient put on NRB mask then CPAP and her sat increased to 86%. Patient is reportedly oriented x 1 at baseline. Patient is unable to provide any history due to severe respiratory distress and baseline dementia. Related Data Home Medications Medication Instructions Recorded Confirmed aspirin 81 mg PO DAILY 04/18/20 07/31/20 buspirone 10 mg PO TID 04/18/20 07/31/20 donepezil 10 mg PO DAILY 04/18/20 07/31/20 ergocalciferol (vitamin D2) 1,250 mcg PO WEEKLY 04/18/20 07/31/20 [Vitamin D2] escitalopram oxalate 10 mg PO DAILY 04/18/20 07/31/20 haloperidol 2 mg PO BID 04/18/20 07/31/20 levothyroxine 50 mcg PO DAILY 04/18/20 07/31/20 memantine 10 mg PO BID 04/18/20 07/31/20 quetiapine 300 mg PO BID 07/31/20 07/31/20 Allergies Allergy/AdvReac Type Severity Reaction Status Date / Time No Known Allergies Allergy Verified 07/31/20 17:56 Review of Systems Review of Systems: ROS unobtainable: Yes unobtainable due to mental status PMFSH Past Medical History Medical History Alzheimer's dementia Anxiety Chronic kidney disease, stage 3 Baseline creatinine is around 1.10 she she. Hypertension Hypothyroidism Macrocytic anemia Schizophrenia Surgical History Surgical History Surgical history unknown Family History Family History Mother Lung cancer Father Esophageal cancer Son Chronic mental illness Social History Social History Social History: The patient resides at [facility]. She has 3 children, but it does not sound as though they keep in touch. She smoked for a brief period of time when she was in her teenage years. No alcohol or illicit substance use. The patient's sister Gillian Cooney is listed in the computer as her emergency contact. I did speak with Emilee who reports that the patient's daughter, Claudia Reyes, would likely be her next of kin and surrogate decision maker, however. The patient is a full code at this time. Smoking status: Never smoker Alcohol intake: unknown Substance use: unknown Gender identity (if verbalized by the patient): Female Spiritual care concerns: No Exam Const: General: acute distress Nutritional Appearance: thin Orientation/consciousness: lethargic HENMT: Head: normocephalic Ears: external ears normal General nose exam: Normal external nose present Eyes: General: appearance normal, both eyes and all related structures Conjunctivae: conjunctivae normal Neck: Neck: normal visual inspection and full ROM Chest: Chest palpation & inspection: normal inspection of the chest and no tenderness Resp: Effort & Inspection: abnormal respiratory pattern, labored and respiratory distress Cardio: Rate: tachycardic Rhythm: regular rhythm GI: GI Palp: No abdominal tenderness and Yes Soft to palpation Skin: General skin exam: normal color and turgor normal Neuro: General: patient obtunded Extrem: General: normal to inspection, full ROM and no pedal edema Psych: Appearance: grossly normal Course Consultations Consultation #1: Discussed with ODILIA Dillard, who agrees to admit. Date: 08/26/20 Time: 14:30 Consultation #2: Discussed with Dr. Florentino, who agree to consult. Date: 08/26/20 Time: 14:49 Vital Signs Vital signs: Vital Signs Temperature 36.6 C 08/26/20 12:54 Pulse Rate 104 H 08/26/20 12:54 Respiratory Rate 32 H 08/26/20 12:54 Blood Pressure 145/122 H 08/26/20 12:54 Pulse Oximetry 86 L 08/26/20 12:54 Temperature
[2020-08-26 14:23] LABS: NT Pro B Type Natriuretic Pept 764 pg/mL (5-100)
[2020-08-26 14:27] LABS: Add Urine Microscopic? YES; Appearance Urine Clear (Clear); Bilirubin Urine 1+ (Negative); Blood Urine Negative (Negative); Color Urine Amber (Yellow); Glucose Urine UA Negative (Negative); Ketones Urine Trace mg/dL (Negative); Leukocyte Esterase Ur Negative LEU/UL (Negative); Mucus Urine Heavy /lpf; Nitrate Urine Negative (Negative); Protein Urine 2+ mg/dL (Negative); RBC Urine 0-2 /hpf (0-2); Specific Grav Ur 1.027 (1.001-1.035); Squamous Epithelial Cell Urine Occasional /hpf (Few)
[2020-08-26 14:35] LABS: INR 1.5; Partial Thromboplastin Time 21.3 SECONDS (22.3-36.8); Prothrombin Time 18.4 Seconds (11.1-14.7)
[2020-08-26 14:38] LABS: D Dimer 3.11 ug/mL (<0.48)
[2020-08-26 14:41] LABS: Alveolar/Arterial O2 Gradient 456.2 mmHg; Base Excess ABG 8.9 mEq/l (+/-2.0); Fractional Inspired Oxygen 80 %; Methemoglobin ABG 0.2 %THb (0-1.5); Oxygen Content ABG 14.7 %vol (16.0-22.0); Oxygen Saturation ABG 96.4 % (95.0-100.0); Oxyhemoglobin 95.2 % THb (90.0-100.0); PCO2 ABG 37.9 mmHg (35.0-45.0); PO2 ABG 74.4 mmHg (80.0-100.0); PO2 FiO2 Ratio Arterial Blood 0.93 %; Reduced Hemoglobin 4.6 %THb (0-5.0); Total Hemoglobin 10.9 g/dL (12.0-18.0)
[2020-08-26 14:43] LABS: Site Drawn LEFT BRACHIAL; pH ABG 7.544 (7.350-7.450)
[2020-08-26 14:44] LABS: Device VENTILATOR
[2020-08-26 14:45] LABS: Arterial Blood Gas PEEP 5 cmH2O; Arterial Blood Gas Tidal Volume 400 ml; Arterial Blood Gas Vent Mode CMV; Arterial Blood Gas Ventilator rate 18 /MIN
[2020-08-26 16:18] LABS: Reflex Lactic Acid Yes or No Add Lactic
--- NOTE | 2020-08-26 16:40 | ADMGEN ---
This patient, Vicki Proctor, was admitted to Intensive Care Unit-6. Patient/family oriented to hospital policies and general routines including ID bracelet, bed and alarms, visiting hours, pain management, procedures, bathroom and other care routines, personal items, smoking policy, room service/diet, and visiting hours. Information on how to activate the Rapid Response Team has been discussed. Patient/Family are encouraged to report perceived risks to care and to ask questions if they do not understand what they are told or what they should do.
[2020-08-26] MEDS: FENTANYL 2,500MCG/NS250ML(*CRX 2,500 MCG/250 ML BAG IV CONT (17:04)
[2020-08-26] MEDS: MIDAZOLAM 100MG/NS 100ML(*CRX) 100 MG/100 ML BAG IV CONT (17:05)
[2020-08-26] MEDS: SODIUM CHLORIDE 0.9% IV 1,000 ML 125 ML IV CONT ×2 (17:10→20:20)
--- NOTE | 2020-08-26 17:52 | WPDPROCEDUR ---
Procedures Central Line Placement Right Femoral: Central Line Date: 08/26/20 Central Line Time: 17:45 Discussed w/ the patient/family/POA,the placement of a central venous catheter, including its clinical necessity/indication & associated potential risks, benifits and alternatives.: Yes The patient/family/POA understand(s) and acknowledge(s) the need to proceed with central venous catheter insertion as an important element of the patient's clinical management.: Yes Time Out Performed: Yes Patient Position: supine Provider Prep: Max. sterile barrier precautions Central line prep: Povidone-Iodine 1% and sterile full body sheet applied Amount of anesthesia used (ml): 3 Sterile US Technique with sterile gel/sterile probe covers: Yes Central line lumen inserted: triple Indonesian: 7 Length (cm): 16 Depth of Insertion (cm): 16 Post Procedure: sutured in place, good blood return, all ports aspirated, flushed, capped and hemostatic product Patient tolerated procedure: well Complications: none Additional comments: No x-ray needed as it was a femoral line
--- NOTE | 2020-08-26 17:57 | PM.IMHP ---
H&P: HPI History of Present Illness Date/Time: 08/26/20 17:57 this is a 60-year-old female patient who resides at a skilled facility.. The retirement found the patient to be unresponsive in her oxygen levels of 57% while on 2 L per nasal cannula. She was put on a non-rebreather mask then a CPAP and increased her oxygen level to 86%. Patient is reportedly orientated to person only. At baseline. Patient has severe dementia. The patient was intubated any emergency room per ED staff. Cerebral atrophy considerably greater than expected for patient age. Nonspecific white matter changes. No acute intracranial findings or significant changes since July 31, 2020. As nasogastric and endotracheal tube insertion. Left basilar airspace opacities consistent with atelectasis versus pneumonia. Small right pleural effusion. Chest CTA was read as no evidence of pulmonary embolism or thoracic aortic aneurysm or dissection. Bilateral lower low lobe atelectasis/consolidation improvement since 07/31/2020. Scattered patchy infiltrates throughout the lungs mildly increased since 07/31/2020. Minimal bilateral pleural effusions. The patient was started on azithromycin Rocephin and IV fluids. Set Up Person has been consulted and is agreeable to admission into ICU. The patient is being admitted to inpatient services on the date of service 08/26/2020. Chief Complaint: Respiratory failure Review of Systems Review of Systems: ROS unobtainable: Yes unobtainable due to mental status PMFSH Past Medical History Medical History Alzheimer's dementia Anxiety Chronic kidney disease, stage 3 Baseline creatinine is around 1.10 she she. Hypertension Hypothyroidism Macrocytic anemia Schizophrenia Surgical History Surgical History Surgical history unknown Family History Family History Mother Lung cancer Father Esophageal cancer Son Chronic mental illness Social History Social History (Updated 08/26/20 @ 18:06 by Glima Nagy NP) Social History: The patient resides at [facility]. She has 3 children, but it does not sound as though they keep in touch. She smoked for a brief period of time when she was in her teenage years. No alcohol or illicit substance use. The patient's sister Gillian Cooney is listed in the computer as her emergency contact. Emilee who reports that the patient's daughter, Claudia Reyes, would likely be her next of kin and surrogate decision maker, however. The patient is a full code at this time. Smoking status: Never smoker Alcohol intake: unknown Substance use: unknown Gender identity (if verbalized by the patient): Female Spiritual care concerns: No Meds Home Medications and Allergies Home Medications Medication Instructions Recorded Confirmed Type aspirin 81 mg PO DAILY 04/18/20 08/26/20 History buspirone 10 mg PO TID 04/18/20 08/26/20 History donepezil 10 mg PO DAILY 04/18/20 08/26/20 History ergocalciferol (vitamin D2) 1,250 mcg PO WEEKLY 04/18/20 08/26/20 History [Vitamin D2] escitalopram oxalate 10 mg PO DAILY 04/18/20 08/26/20 History haloperidol 1 mg PO BID 04/18/20 08/26/20 History levothyroxine 50 mcg PO DAILY 04/18/20 08/26/20 History memantine 10 mg PO BID 04/18/20 08/26/20 History divalproex [Depakote Sprinkles] 500 mg PO Q8H 30 Days #360 cap 07/12/20 08/26/20 Rx quetiapine 300 mg PO BID 07/31/20 08/26/20 History Allergies Allergy/AdvReac Type Severity Reaction Status Date / Time No Known Allergies Allergy Verified 07/31/20 17:56 Vital Signs Vital Signs - 24 hr 08/26/20 12:54 08/26/20 13:30 08/26/20 13:37 Temperature 36.6 C Pulse Rate 104 H 106 H Respiratory Rate 32 H 18 Blood Pressure 145/122 H 64/44 L Pulse Oximetry 86 L 95 98 08/26/20 13:38 08/26/20 13:48 08/26/20 14:00
[2020-08-26] MEDS: ACETAMINOPHEN ELIXIR 325 MG/10.15 ML UDC 650 MG FEED TUBE (18:02)
[2020-08-26] MEDS: CENTRAL LINE FLUSH 10 ML IV PUSH (20:20)
[2020-08-26 20:24] LABS: Lactic Acid 3.1 mmol/L (0.7-2.1)
[2020-08-26] MEDS: MINERAL OIL/WHITE PETROLATUM OINTMENT 1 APPLIC EACH EYE (20:25)
[2020-08-27] VITALS (26 sets, daily range): BP systolic 104–153; BP diastolic 35–61; PULSE 82–103; RESP 14–18; TEMP 36.1–38.3; O2SAT 94–99; BMI 25.9
[2020-08-27] MEDS: SODIUM CHLORIDE 0.9% IV 1,000 ML 125 ML IV CONT (04:21)
[2020-08-27] MEDS: CENTRAL LINE FLUSH 10 ML IV PUSH ×4 (04:22→21:19)
[2020-08-27 04:41] LABS: Alveolar/Arterial O2 Gradient 307.1 mmHg; Carboxyhemoglobin 0.2 % THb (0-2.0); Fractional Inspired Oxygen 60 %; HCO3 ABG 28.9 mEq/l (22.0-26.0); Methemoglobin ABG 0.3 %THb (0-1.5); Oxygen Content ABG 11.2 %vol (16.0-22.0); Oxygen Saturation ABG 97.8 % (95.0-100.0); PCO2 ABG 30.7 mmHg (35.0-45.0); PO2 ABG 86.9 mmHg (80.0-100.0); PO2 FiO2 Ratio Arterial Blood 1.45 %; Reduced Hemoglobin 3.5 %THb (0-5.0); Total Hemoglobin 8.2 g/dL (12.0-18.0)
[2020-08-27 04:42] LABS: Device VENTILATOR; Modified Allen's Test Pass; Site Drawn RIGHT RADIAL; pH ABG 7.592 (7.350-7.450)
[2020-08-27 04:43] LABS: Arterial Blood Gas PEEP 5 cmH2O; Arterial Blood Gas Tidal Volume 400 ml; Arterial Blood Gas Vent Mode CMV; Arterial Blood Gas Ventilator rate 18 /MIN
[2020-08-27] MEDS: LEVOTHYROXINE SODIUM INJ 100 MCG/5 ML VIAL 25 MCG IV PUSH (05:30)
[2020-08-27 05:39] LABS: Alanine Aminotransferase 9 U/L (4-35); Albumin Level 2.4 g/dL (3.5-5.1); Alkaline Phosphatase 153 U/L (38-126); Anion Gap 5 mmol/L (8-16); Aspartate Amino Transferase 34 U/L (14-36); Bilirubin,Total 0.3 mg/dL (0.2-1.3); Blood Urea Nitrogen 12 mg/dL (7-17); Calcium 8.3 mg/dL (8.4-10.2); Carbon Dioxide 31 mmol/L (22-30); Chloride 104 mmol/L (98-107); Estimated CRCL calculation 62 ml/min; Estimated Glomerular Filt Rate > 60; Glucose 112 mg/dL (65-105); Lactate Dehydrogenase 622 U/L (313-618); Magnesium 1.6 mg/dL (1.6-2.3); Potassium 3.2 mmol/L (3.4-5.0); Sodium 140 mmol/L (137-145)
[2020-08-27 05:44] LABS: Lactic Acid Reflex 1.8 mmol/L (0.7-2.1)
--- NOTE | 2020-08-27 08:05 | WPDCNINT ---
Assessment and Plan Assessment and plan (1) Acute respiratory failure with hypoxia: Code(s): J96.01 - Acute respiratory failure with hypoxia Status: Acute Assessment and Plan: Acute respiratory failure likely related to pneumonia, heart failure/volume overload -patient intubated on 08/26/2020 after arriving from the assisted with severe hypoxia -continue mechanical ventilation, on CMV mode, peep of 5, 60% FiO2, wean FiO2 to maintain O2 sats greater than 92% -chest x-ray and CTA chest reviewed, no evidence pulmonary embolism despite D-dimer being elevated -continue azithromycin, ceftriaxone and vancomycin -ABGs reviewed: Will wean FiO2 down to 50% and decrease respiratory rate to 14 (2) Bilateral pneumonia: Qualifiers: Lung location: unspecified part of lung Pneumonia type: due to unspecified organism Qualified Code(s): J18.9 - Pneumonia, unspecified organism Code(s): J18.9 - Pneumonia, unspecified organism Status: Acute Assessment and Plan: As above (3) Suspected COVID-19 virus infection: Code(s): Z20.822 - Contact with and (suspected) exposure to COVID-19 Status: Acute Assessment and Plan: Patient with hypoxia, acute respiratory failure, bilateral infiltrates -SARS-CoV-2 PCR pending -elevated D-dimer, elevated LDH -continue antibiotics as above - (4) Acute on chronic diastolic (congestive) heart failure: Code(s): I50.33 - Acute on chronic diastolic (congestive) heart failure Status: Acute Assessment and Plan: Bilateral lower extremity edema, acute respiratory failure -will obtain echocardiogram (5) Electrolyte imbalance: Code(s): E87.8 - Other disorders of electrolyte and fluid balance, not elsewhere classified Status: Acute Assessment and Plan: Replace potassium and magnesium (6) Altered mental status: Qualifiers: Altered mental status type: unspecified Qualified Code(s): R41.82 - Altered mental status, unspecified Code(s): R41.82 - Altered mental status, unspecified Status: Acute Assessment and Plan: Altered mental status could be related to hypoxia, pneumonia, severe sepsis -treat underlying cause (7) Seizure: Code(s): R56.9 - Unspecified convulsions Status: Acute Assessment and Plan: Patient with history of seizures on Depakote delayed release capsules, will switch to Depakote sprinkles per pharmacy (8) Severe sepsis: Code(s): A41.9 - Sepsis, unspecified organism; R65.20 - Severe sepsis without septic shock Status: Acute Assessment and Plan: Patient with altered mental status, hypoxia, elevated lactic acid levels, pneumonia -hemodynamically stable, -central line was inserted for venous insufficiency -continue antibiotics as above -blood cultures and sputum cultures have been obtained and pending (9) DVT prophylaxis: Code(s): Z29.9 - Encounter for prophylactic measures, unspecified Status: Acute Assessment and Plan: DVT prophylaxis: Continue Lovenox SQ (10) Dietary counseling and surveillance: Code(s): Z71.3 - Dietary counseling and surveillance Status: Acute Assessment and Plan: Will start tube feeds (11) Dementia: Code(s): F03.90 - Unspecified dementia without behavioral disturbance Status: Acute Assessment and Plan: History of dementia, on Namenda at home (12) Hypothyroidism: Code(s): E03.9 - Hypothyroidism, unspecified Status: Chronic Assessment and Plan: Continue levothyroxine Additional Plan Will update family Code status: Full code Critical care time spent: 44 minutes This dictation may have been done utilizing a voice recognition system. Attempts have been made to correct errors. However, there may be uncorrected grammatical, spelling, and recognition errors present. Due to a high probability of clinically significant, life threate
[2020-08-27] MEDS: MAGNESIUM SULF 2 GM/WATER 50ML 2 GM/50 ML BAG IVPB (08:18)
[2020-08-27] MEDS: MINERAL OIL/WHITE PETROLATUM OINTMENT 1 APPLIC EACH EYE ×2 (08:19→21:19)
[2020-08-27] MEDS: ENOXAPARIN 40 MG/0.4 ML SYRINGE SUB-Q (08:19)
--- NOTE | 2020-08-27 10:32 | PC.NURSE ---
Spoke with Debby at [facility]. Confirmed that patient obtained Covid vaccinations 03/14/20 & 04/04/20.
[2020-08-27] MEDS: SODIUM CHLORIDE 0.9% IV 1,000 ML 100 ML IV CONT (11:56)
[2020-08-27] MEDS: DIVALPROEX SODIUM SPRINKLE 125 MG CAP.DR 500 MG XX ×2 (13:52→21:22)
--- NOTE | 2020-08-27 15:49 | PM.IMPN ---
Progress Note: A&P Assessment and Plan (1) Acute respiratory failure with hypoxia: Code(s): J96.01 - Acute respiratory failure with hypoxia Status: Acute Assessment and Plan: The patient is intubated and sedated. Respiratory failure secondary to pneumonia. Hypoxia has improved. COVID testing in process. Wean ventilator as tolerated. Appreciate emergency preparedness coordinator input. (2) Severe sepsis: Code(s): A41.9 - Sepsis, unspecified organism; R65.20 - Severe sepsis without septic shock Status: Acute Assessment and Plan: Patient with severe sepsis as seen with the acute respiratory failure. Lactic acid 3.1. One of 2 blood culture bottles growing Gram-positive cocci in clusters from a aerobic bottle only. Follow-up on final result. Continue IV antibiotics. (3) Bilateral pneumonia: Qualifiers: Lung location: unspecified part of lung Pneumonia type: due to unspecified organism Qualified Code(s): J18.9 - Pneumonia, unspecified organism Code(s): J18.9 - Pneumonia, unspecified organism Status: Acute Assessment and Plan: Patient recently hospitalized for pneumonia. Discharged on August 09 with 5 more days of cefdinir. She returns respiratory failure with low-grade fever but normal white count. CTA showing no pulmonary emboli but does show improvement in the bilateral lower lobe atelectasis/consolidation. As per antibiotic stewardship, she was started on azithromycin and Rocephin. Vancomycin added for severity. Sputum specimen ordered. Blood cultures positive. Continue current IV antibiotics. (4) Acute on chronic diastolic (congestive) heart failure: Code(s): I50.33 - Acute on chronic diastolic (congestive) heart failure Status: Acute Assessment and Plan: The patient has minimal bilateral pleural effusions. BNP 760. No echo listed here. Does appear clinically to be mildly fluid overloaded. Not on diuretics chronically. Follow. (5) Seizure: Code(s): R56.9 - Unspecified convulsions Status: Acute Assessment and Plan: Patient has a history of seizures currently on Depakote. This has been continued. Ativan available as needed for signs of symptoms of seizures. Patient is having tremors but not consistent with seizure activity. (6) Hypothyroidism: Code(s): E03.9 - Hypothyroidism, unspecified Status: Chronic Assessment and Plan: TSH last month was 4.9. Continue IV levothyroxine. (7) Alzheimer's dementia: Code(s): G30.9 - Alzheimer's disease, unspecified; F02.80 - Dementia in other diseases classified elsewhere without behavioral disturbance Status: Chronic Assessment and Plan: Patient is intubated and sedated at this time. Home medications of Aricept and Namenda are on hold. (8) Suspected COVID-19 virus infection: Code(s): Z20.822 - Contact with and (suspected) exposure to COVID-19 Status: Acute Assessment and Plan: The patient is in droplet and contact isolation. Is not clear if the patient was vaccinated or not however she does come from a facility. COVID testing is pending. (9) Schizophrenia: Code(s): F20.9 - Schizophrenia, unspecified Status: Chronic Assessment and Plan: Patient sedated. She is on buspirone, Lexapro, Haldol, and Seroquel for mood stabilization. These are currently on hold. Resume when able. (10) Foot ulcer: Code(s): L97.509 - Non-pressure chronic ulcer of other part of unspecified foot with unspecified severity Status: Acute Assessment and Plan: Patient with patch of necrosis to the right lateral foot and chronic decubitus ulcer to left heel. Continue routine skin care. (11) DVT prophylaxis: Code(s): Z29.9 - Encounter for prophylactic measures, unspecified Status: Acute Assessment and Plan: Lovenox Subjective Date/time seen: 08/27/20 15:49 Interval hist
[2020-08-27] MEDS: ALBUTEROL SULFATE NEB 2.5 MG/0.5 ML INH INHALATION (20:30)
[2020-08-27] MEDS: IPRATROPIUM BR 0.02% INH SOLN 0.5 MG/2.5 ML VIAL INHALATION (20:30)
[2020-08-28] VITALS (33 sets, daily range): BP systolic 117–151; BP diastolic 43–76; PULSE 79–101; RESP 14–16; TEMP 36.3–37; O2SAT 93–99
[2020-08-28] MEDS: SODIUM CHLORIDE 0.9% IV 1,000 ML 100 ML IV CONT (02:08)
[2020-08-28] MEDS: DIVALPROEX SODIUM SPRINKLE 125 MG CAP.DR 500 MG XX ×3 (02:09→20:42)
[2020-08-28] MEDS: IPRATROPIUM BR 0.02% INH SOLN 0.5 MG/2.5 ML VIAL INHALATION ×4 (02:54→19:36)
[2020-08-28] MEDS: ALBUTEROL SULFATE NEB 2.5 MG/0.5 ML INH INHALATION ×4 (02:54→19:36)
[2020-08-28 04:43] LABS: Alveolar/Arterial O2 Gradient 105.5 mmHg; Base Excess ABG 4.3 mEq/l (+/-2.0); Carboxyhemoglobin 0.2 % THb (0-2.0); Device VENTILATOR; Fractional Inspired Oxygen 35 %; HCO3 ABG 27.6 mEq/l (22.0-26.0); Methemoglobin ABG 0.9 %THb (0-1.5); Modified Allen's Test Unable to perform; Oxygen Content ABG 10.1 %vol (16.0-22.0); Oxygen Saturation ABG 98.2 % (95.0-100.0); PO2 ABG 103.4 mmHg (80.0-100.0); PO2 FiO2 Ratio Arterial Blood 2.95 %; Reduced Hemoglobin 2.9 %THb (0-5.0); Site Drawn RIGHT RADIAL; Total Hemoglobin 7.3 g/dL (12.0-18.0); pH ABG 7.514 (7.350-7.450)
[2020-08-28 04:44] LABS: Arterial Blood Gas PEEP 5 cmH2O; Arterial Blood Gas Tidal Volume 400 ml; Arterial Blood Gas Vent Mode CMV; Arterial Blood Gas Ventilator rate 14 /MIN
[2020-08-28 05:10] LABS: Hematocrit 22.2 % (37.0-47.0); Mean Corpuscular HGB Conc 31.1 g/dl (32-36); Mean Corpuscular Hemoglobin 32.2 pg (26-34); Mean Corpuscular Volume 103.7 fl (80-100); Mean Platelet Volume 9.6 fl (7.4-10.4); Platelet Count Result 452 k/mm3 (150-375); Red Blood Count 2.14 M/mm3 (4.2-5.4); Red Cell Distribution Width 15.9 % (11.5-14.5); White Blood Count 14.2 K/mm3 (4.5-10.0)
[2020-08-28] MEDS: LEVOTHYROXINE SODIUM INJ 100 MCG/5 ML VIAL 25 MCG IV PUSH (05:12)
[2020-08-28] MEDS: CENTRAL LINE FLUSH 10 ML IV PUSH ×4 (05:13→21:05)
[2020-08-28 05:16] LABS: Hemoglobin 6.9 g/dL (12.0-15.0)
[2020-08-28 05:25] LABS: Alanine Aminotransferase 8 U/L (4-35); Albumin Level 2.3 g/dL (3.5-5.1); Alkaline Phosphatase 158 U/L (38-126); Anion Gap 4 mmol/L (8-16); Aspartate Amino Transferase 23 U/L (14-36); Bilirubin,Total 0.2 mg/dL (0.2-1.3); Blood Urea Nitrogen 10 mg/dL (7-17); Calcium 8.2 mg/dL (8.4-10.2); Carbon Dioxide 29 mmol/L (22-30); Chloride 106 mmol/L (98-107); Estimated CRCL calculation 94 ml/min; Estimated Glomerular Filt Rate > 60; Glucose 130 mg/dL (65-105); Magnesium 2.1 mg/dL (1.6-2.3); Phosphorus 2.2 mg/dL (2.5-4.5); Potassium 3.3 mmol/L (3.4-5.0); Sodium 139 mmol/L (137-145)
[2020-08-28 05:56] LABS: CRP 23.6 mg/dL (<1.0)
[2020-08-28] MEDS: POTASSIUM/PHOSPHORUS/SODIUM 1.5 GM PACKET 1 PACKET PO (08:16)
[2020-08-28] MEDS: PANTOPRAZOLE SODIUM IV 40 MG VIAL IV PUSH ×2 (08:16→20:42)
[2020-08-28] MEDS: ENOXAPARIN 40 MG/0.4 ML SYRINGE SUB-Q (08:16)
[2020-08-28 08:20] LABS: Immature Reticulocyte Fraction 23.2 % (3.0-15.9); Reticulocyte Hemoglobin Conten 23.7 pg (28.2-35.7); Reticulocyte Percent 2.31 % (0.7-4.3); Reticulocytes Absolute 0.05 B/L (32.2-175.7)
[2020-08-28] MEDS: SODIUM CHLORIDE 0.9% IV 250 ML 30 ML IV CONT (08:27)
[2020-08-28 08:28] LABS: Lactate Dehydrogenase 442 U/L (313-618)
--- NOTE | 2020-08-28 08:41 | WPDINTPN ---
Progress Note: A&P Assessment and Plan (1) Anemia: Code(s): D64.9 - Anemia, unspecified Status: Acute Assessment and Plan: Patient dropped her hemoglobin to 6.9 this morning -transfusing 1 unit of packed RBCs -check stool for Hemoccult -check iron panel, folic acid and vitamin B12 -will check LDH and haptoglobin and retic count -started patient on PPI IV Q12H -continue to monitor H/H -may require GI consult if blood counts continue to drop (2) Acute respiratory failure with hypoxia: Code(s): J96.01 - Acute respiratory failure with hypoxia Status: Acute Assessment and Plan: Acute respiratory failure likely related to pneumonia, heart failure/volume overload -patient intubated on 08/26/2020 after arriving from the alf with severe hypoxia -continue mechanical ventilation, on CMV mode, peep of 5, 35% FiO2, wean FiO2 to maintain O2 sats greater than 92% -chest x-ray and CTA chest reviewed, no evidence pulmonary embolism despite D-dimer being elevated -continue azithromycin, ceftriaxone and vancomycin -ABGs reviewed and improving (3) Bilateral pneumonia: Qualifiers: Lung location: unspecified part of lung Pneumonia type: due to unspecified organism Qualified Code(s): J18.9 - Pneumonia, unspecified organism Code(s): J18.9 - Pneumonia, unspecified organism Status: Acute Assessment and Plan: As above (4) Suspected COVID-19 virus infection: Code(s): Z20.822 - Contact with and (suspected) exposure to COVID-19 Status: Acute Assessment and Plan: Patient with hypoxia, acute respiratory failure, bilateral infiltrates -SARS-CoV-2 PCR pending -elevated D-dimer, elevated LDH -continue airborne, contact, droplet isolation/precautions - (5) Acute on chronic diastolic (congestive) heart failure: Code(s): I50.33 - Acute on chronic diastolic (congestive) heart failure Status: Acute Assessment and Plan: Bilateral lower extremity edema, acute respiratory failure -echocardiogram has been obtained and pending (6) Electrolyte imbalance: Code(s): E87.8 - Other disorders of electrolyte and fluid balance, not elsewhere classified Status: Acute Assessment and Plan: Replace potassium and phosphorus (7) Altered mental status: Qualifiers: Altered mental status type: unspecified Qualified Code(s): R41.82 - Altered mental status, unspecified Code(s): R41.82 - Altered mental status, unspecified Status: Acute Assessment and Plan: Altered mental status could be related to hypoxia, pneumonia, severe sepsis -treat underlying cause (8) Seizure: Code(s): R56.9 - Unspecified convulsions Status: Acute Assessment and Plan: Patient with history of seizures -continue Depakote (9) Severe sepsis: Code(s): A41.9 - Sepsis, unspecified organism; R65.20 - Severe sepsis without septic shock Status: Acute Assessment and Plan: Patient with altered mental status, hypoxia, elevated lactic acid levels, pneumonia -hemodynamically stable, -central line was inserted for venous insufficiency -continue antibiotics as above -blood cultures negative x2, sputum cultures pending (10) Dementia: Code(s): F03.90 - Unspecified dementia without behavioral disturbance Status: Acute Assessment and Plan: History of dementia, on Namenda at home (11) Hypothyroidism: Code(s): E03.9 - Hypothyroidism, unspecified Status: Chronic Assessment and Plan: Continue levothyroxine (12) Dietary counseling and surveillance: Code(s): Z71.3 - Dietary counseling and surveillance Status: Acute Assessment and Plan: Continue feeds, patient is tolerating (13) DVT prophylaxis: Code(s): Z29.9 - Encounter for prophylactic measures, unspecified Status: Acute Assessment and Plan: DVT prophylaxis: Hold Lovenox as patient dropped h
[2020-08-28 09:07] LABS: Iron < 10 ug/dL (37-170)
[2020-08-28 09:30] LABS: Percent Iron Saturation < 8 % (20-50)
[2020-08-28 09:45] LABS: Folic Acid 4.4 ng/mL (2.76->20); Vitamin B12 > 1000.0 pg/mL (239-931)
--- NOTE | 2020-08-28 09:45 | PM.IMPN ---
Progress Note: A&P Assessment and Plan (1) Acute respiratory failure with hypoxia: Code(s): J96.01 - Acute respiratory failure with hypoxia Status: Acute Assessment and Plan: The patient is intubated and sedated. Respiratory failure secondary to pneumonia. Hypoxia has improved. COVID testing in process. Wean ventilator as tolerated. Appreciate natural resource economist input. (2) Severe sepsis: Code(s): A41.9 - Sepsis, unspecified organism; R65.20 - Severe sepsis without septic shock Status: Acute Assessment and Plan: Patient with severe sepsis as seen with the acute respiratory failure. Lactic acid 3.1. One of 2 blood culture bottles growing Gram-positive cocci in clusters from a aerobic bottle only; ID still pending. Follow-up on final result. Continue IV antibiotics. (3) Anemia: Code(s): D64.9 - Anemia, unspecified Status: Acute Assessment and Plan: Hgb normally runs 9-11 range past few months. Hgb 9.0 on admission and dropped to 6.9 today. No hematuria. No melana or hematochezia per RN. Fluid balance positive 4.9L. Iron <10 with TIBC 118 and sat<8%. Was iron deficient in April. No EGD/[place] listed here. Transfusion ordered. Follow. (4) Bilateral pneumonia: Qualifiers: Lung location: unspecified part of lung Pneumonia type: due to unspecified organism Qualified Code(s): J18.9 - Pneumonia, unspecified organism Code(s): J18.9 - Pneumonia, unspecified organism Status: Acute Assessment and Plan: Patient recently hospitalized for pneumonia. Discharged on August 09 with 5 more days of cefdinir. She returns with respiratory failure and low-grade fever but normal white count. CTA showing no pulmonary emboli but does show improvement in the bilateral lower lobe atelectasis/consolidation. As per antibiotic stewardship, she was started on azithromycin and Rocephin. Vancomycin added for severity. Sputum specimen ordered. Blood cultures positive as above. Continue current IV antibiotics. (5) Acute on chronic diastolic (congestive) heart failure: Code(s): I50.33 - Acute on chronic diastolic (congestive) heart failure Status: Acute Assessment and Plan: The patient has minimal bilateral pleural effusions. BNP 760. No echo listed here. Does appear clinically to be mildly fluid overloaded. Not on diuretics chronically. Echo ordered. Follow. (6) Seizure: Code(s): R56.9 - Unspecified convulsions Status: Acute Assessment and Plan: Patient has a history of seizures currently on Depakote. This has been continued. Ativan available as needed for signs of symptoms of seizures. Patient is having tremors but not consistent with seizure activity. (7) Hypothyroidism: Code(s): E03.9 - Hypothyroidism, unspecified Status: Chronic Assessment and Plan: TSH last month was 4.9. Continue IV levothyroxine. (8) Alzheimer's dementia: Code(s): G30.9 - Alzheimer's disease, unspecified; F02.80 - Dementia in other diseases classified elsewhere without behavioral disturbance Status: Chronic Assessment and Plan: Patient is intubated and sedated at this time. Home medications of Aricept and Namenda are on hold. Will resume today. (9) Suspected COVID-19 virus infection: Code(s): Z20.822 - Contact with and (suspected) exposure to COVID-19 Status: Acute Assessment and Plan: The patient is in droplet and contact isolation. Is not clear if the patient was vaccinated or not however she does come from a facility. COVID testing is still pending. (10) Schizophrenia: Code(s): F20.9 - Schizophrenia, unspecified Status: Chronic Assessment and Plan: Patient sedated. She is on buspirone, Lexapro, Haldol, and Seroquel for mood stabilization. These are currently on hold. Resume buspirone, Lexapro and Seroquel today. QTc 407. (11) Mariela
--- NOTE | 2020-08-28 10:29 | PCDIET ---
Nutrition Follow-Up Complete: Nutrition Diagnosis: Inadequate oral intake related to oral intubation as evidenced by NPO status. Nutrition Goal: Patient to meet estimated nutritional needs. Goal met. Patient tolerating Vital AF 1.2 at 55mL/hr goal rate with 30mL water flush every 4 hours. Plan for breathing trial once more awake. Last recorded weight is 71.3 kg which is increased from last review. +I/O. Bowel Motility: No BM as of yet. Labs Reviewed: WBC (14.2), Hgb (6.9), Hct (22.2), Glu (130), K (3.3), Alb (2.3), PO4 (2.2), CRP (23.6) Meds Noted: Albuterol, Zithromax, Atrovent, Rocephin, Synthroid, Protonix, KCl, Vancomycin, Phos-NaK, NS at 100mL/hr Additional Notes: Patient off sedation. Corrected calcium is normal. Left foot and left heel with unstageable pressure ulcers; wound nurse following. Will continue to monitor with same goal. Nutrition Monitoring and Evaluation: Follow up every Thursday/Thursday.
[2020-08-28] MEDS: QUEtiapine FUMARATE 100 MG TABLET 300 MG FEED TUBE ×2 (11:51→20:42)
[2020-08-28] MEDS: busPIRone HCL 10 MG TABLET FEED TUBE ×2 (11:52→16:37)
[2020-08-28] MEDS: ESCITALOPRAM OXALATE 10 MG TABLET FEED TUBE (11:52)
[2020-08-28] MEDS: DONEPEZIL HCL 10 MG TABLET FEED TUBE (11:52)
[2020-08-28 12:00] LABS: Hemoglobin 8.6 g/dL (12.0-15.0)
[2020-08-28 13:55] LABS: SARS-CoV-2 RNA PCR Negative (Negative)
[2020-08-28] MEDS: MEMANTINE 10 MG TABLET FEED TUBE (16:37)
[2020-08-28] MEDS: MINERAL OIL/WHITE PETROLATUM OINTMENT 1 APPLIC EACH EYE (21:05)
[2020-08-29] VITALS (26 sets, daily range): BP systolic 112–181; BP diastolic 43–76; PULSE 89–107; RESP 14–16; TEMP 36.2–36.9; O2SAT 94–98
--- NOTE | 2020-08-29 | ECHO_ITS ---
Patient Info Name: Vicki Proctor Age: 60 years : 1960 Gender: Female Ht: 64 in Wt: 150 lbs BSA: 1.77 m2 HR: 100 bpm BP: 141 / 50 mmHg Technical Quality: Good, Fair Exam Date: 08/29/2020 9:15 AM Exam Location: [facility] Patient Status: Inpatient Admit Date: 08/26/2020 Staff Ordering Physician: Justice Florentino MD Caregiver Assisted Living: Reyes Miller RDCS, RT Attending Provider: Delano Lozano MD Referring Physician: Chadd CA; Exam Type: CA echo doppler color flow Study Info Indications J96.00 - Acute respiratory failure, unspecified whether with hypoxia or hypercapnia Complete two-dimensional, color flow and Doppler transthoracic echocardiogram is performed. Strain analysis performed. Summary 1. Complete two-dimensional, color flow and Doppler transthoracic echocardiogram is performed. 2. Left ventricular chamber dimension is normal. 3. Left ventricular systolic function is normal, estimated at 60-65%. 4. The left ventricular diastolic function is grade I diastolic dysfunction. 5. E/e' 9 is minimally elevated. 6. Global longitudinal strain is normal at -20.2%. 7. There is trace tricuspid valve regurgitation. 8. There is small circumferential pericardial effusion. Left Ventricle E/e' 9 is minimally elevated. Global longitudinal strain is normal at -20.2%. Left ventricular chamber dimension is normal. Left ventricular systolic function is normal, estimated at 60-65%. The left ventricular diastolic function is grade I diastolic dysfunction. Right Ventricle Right ventricular chamber dimension is normal. Right ventricular systolic function is normal. Left Atria Left atrial chamber dimension is normal. Right Atria Right atrial chamber dimension is normal. Aortic Valve The aortic valve is probable trileaflet. There is no aortic valve stenosis. There is no aortic valve regurgitation. Pulmonic Valve There is no pulmonic regurgitation. Mitral Valve There is no mitral valve stenosis. There is no mitral valve regurgitation. Tricuspid Valve RVSP is not calculated due to an inadequate TR jet. There is trace tricuspid valve regurgitation. Pericardium/Pleural There is small circumferential pericardial effusion. Inferior Vena Cava Normal inferior vena cava with >50% collapse upon inspiration consistent with normal right atrial pressure, 5 mmHg. Aorta The aortic root size at the sinus of Valsalva is normal. Left Ventricular Outflow Tract Name Value Normal LVOT 2D LVOT Diameter 1.9 cm LVOT Doppler LVOT Peak Gradient 7 mmHg LVOT Mean Gradient 4 mmHg LVOT VTI 25 cm LVOT VTI/AV VTI Ratio 0.9 LVOT Stroke Volume 68 ml LVOT CO 7.4 l/min LVOT CI 4.2 l/min/m2 Mitral Valve Name Value Normal
[2020-08-29] MEDS: SODIUM CHLORIDE 0.9% IV 1,000 ML 50 ML IV CONT (00:36)
[2020-08-29] MEDS: IPRATROPIUM BR 0.02% INH SOLN 0.5 MG/2.5 ML VIAL INHALATION ×4 (01:41→20:14)
[2020-08-29] MEDS: ALBUTEROL SULFATE NEB 2.5 MG/0.5 ML INH INHALATION ×4 (01:41→20:14)
[2020-08-29] MEDS: DIVALPROEX SODIUM SPRINKLE 125 MG CAP.DR 500 MG XX ×3 (03:10→18:21)
[2020-08-29 04:30] LABS: Hematocrit 24.4 % (37.0-47.0); Hemoglobin 7.9 g/dL (12.0-15.0); Mean Corpuscular HGB Conc 32.4 g/dl (32-36); Mean Corpuscular Hemoglobin 30.9 pg (26-34); Mean Corpuscular Volume 95.3 fl (80-100); Mean Platelet Volume 9.4 fl (7.4-10.4); Platelet Count Result 388 k/mm3 (150-375); Red Blood Count 2.56 M/mm3 (4.2-5.4); Red Cell Distribution Width 17.4 % (11.5-14.5)
[2020-08-29 04:58] LABS: Alveolar/Arterial O2 Gradient 67.6 mmHg; Base Excess ABG 4.1 mEq/l (+/-2.0); Carboxyhemoglobin 0.2 % THb (0-2.0); Fractional Inspired Oxygen 30 %; HCO3 ABG 28.5 mEq/l (22.0-26.0); Methemoglobin ABG 0.5 %THb (0-1.5); Oxygen Content ABG 14.5 %vol (16.0-22.0); Oxygen Saturation ABG 97.6 % (95.0-100.0); Oxyhemoglobin 96.2 % THb (90.0-100.0); PCO2 ABG 42.2 mmHg (35.0-45.0); PO2 ABG 96.7 mmHg (80.0-100.0); PO2 FiO2 Ratio Arterial Blood 3.22 %; Reduced Hemoglobin 3.1 %THb (0-5.0); Total Hemoglobin 10.6 g/dL (12.0-18.0); pH ABG 7.448 (7.350-7.450)
[2020-08-29 04:59] LABS: Device VENTILATOR; Modified Allen's Test Pass; Site Drawn LEFT RADIAL
[2020-08-29 05:01] LABS: Arterial Blood Gas PEEP 5 cmH2O; Arterial Blood Gas Tidal Volume 400 ml; Arterial Blood Gas Vent Mode CMV; Arterial Blood Gas Ventilator rate 14 /MIN
[2020-08-29] MEDS: CENTRAL LINE FLUSH 10 ML IV PUSH ×3 (05:06→20:25)
[2020-08-29 05:24] LABS: Alanine Aminotransferase 8 U/L (4-35); Albumin Level 2.1 g/dL (3.5-5.1); Alkaline Phosphatase 133 U/L (38-126); Anion Gap 4 mmol/L (8-16); Aspartate Amino Transferase 30 U/L (14-36); Bilirubin,Total < 0.1 mg/dL (0.2-1.3); Blood Urea Nitrogen 7 mg/dL (7-17); CRP 14.9 mg/dL (<1.0); Calcium 8.2 mg/dL (8.4-10.2); Carbon Dioxide 28 mmol/L (22-30); Chloride 107 mmol/L (98-107); Estimated CRCL calculation 115 ml/min; Estimated Glomerular Filt Rate > 60; Glucose 183 mg/dL (65-105); Magnesium 1.9 mg/dL (1.6-2.3); Phosphorus 2.2 mg/dL (2.5-4.5); Potassium 3.5 mmol/L (3.4-5.0); Sodium 139 mmol/L (137-145)
[2020-08-29] MEDS: LEVOTHYROXINE SODIUM INJ 100 MCG/5 ML VIAL 25 MCG IV PUSH (06:09)
[2020-08-29 08:00] LABS: Ammonia < 9 umol/L (9-30)
[2020-08-29] MEDS: QUEtiapine FUMARATE 100 MG TABLET 300 MG FEED TUBE ×2 (08:23→20:25)
[2020-08-29] MEDS: PANTOPRAZOLE SODIUM IV 40 MG VIAL IV PUSH ×2 (08:23→20:25)
[2020-08-29] MEDS: MEMANTINE 10 MG TABLET FEED TUBE ×2 (08:23→17:10)
[2020-08-29] MEDS: DONEPEZIL HCL 10 MG TABLET FEED TUBE (08:23)
[2020-08-29] MEDS: busPIRone HCL 10 MG TABLET FEED TUBE ×3 (08:23→17:09)
[2020-08-29] MEDS: ESCITALOPRAM OXALATE 10 MG TABLET FEED TUBE (08:23)
[2020-08-29] MEDS: MINERAL OIL/WHITE PETROLATUM OINTMENT 1 APPLIC EACH EYE ×2 (08:24→20:25)
--- NOTE | 2020-08-29 08:27 | WPDINTPN ---
Progress Note: A&P Assessment and Plan (1) Anemia: Code(s): D64.9 - Anemia, unspecified Status: Acute Assessment and Plan: Patient dropped her hemoglobin to 6.9 on 08/28/2021, received 1 unit of packed RBCs. -hemoglobin 7.9 this morning -check stool for Hemoccult -iron panel reflective of anemia of chronic disease, vitamin B12 and folic acid within normal limits -LDH normal, haptoglobin is pending -continue PPI IV Q12H -continue to monitor H/H -may require GI consult if blood counts continue to drop (2) Acute respiratory failure with hypoxia: Code(s): J96.01 - Acute respiratory failure with hypoxia Status: Acute Assessment and Plan: Acute respiratory failure likely related to pneumonia, heart failure/volume overload -patient intubated on 08/26/2020 after [facility] with severe hypoxia -continue mechanical ventilation, on CMV mode, peep of 5, 30% FiO2, wean FiO2 to maintain O2 sats greater than 92% -chest x-ray and CTA chest reviewed, no evidence pulmonary embolism despite D-dimer being elevated -continue azithromycin, ceftriaxone and vancomycin -ABGs reviewed and improving (3) Bilateral pneumonia: Qualifiers: Lung location: unspecified part of lung Pneumonia type: due to unspecified organism Qualified Code(s): J18.9 - Pneumonia, unspecified organism Code(s): J18.9 - Pneumonia, unspecified organism Status: Acute Assessment and Plan: As above (4) Suspected COVID-19 virus infection: Code(s): Z20.822 - Contact with and (suspected) exposure to COVID-19 Status: Acute Assessment and Plan: Patient with hypoxia, acute respiratory failure, bilateral infiltrates -SARS-CoV-2 PCR negative -elevated D-dimer, elevated LDH -discontinue precautions (5) Acute on chronic diastolic (congestive) heart failure: Code(s): I50.33 - Acute on chronic diastolic (congestive) heart failure Status: Acute Assessment and Plan: Bilateral lower extremity edema, acute respiratory failure -echocardiogram has been obtained and pending -08/28/2020 venous Dopplers bilateral upper and lower extremity negative for DVTs (6) Electrolyte imbalance: Code(s): E87.8 - Other disorders of electrolyte and fluid balance, not elsewhere classified Status: Acute Assessment and Plan: Replace phosphorus (7) Altered mental status: Qualifiers: Altered mental status type: unspecified Qualified Code(s): R41.82 - Altered mental status, unspecified Code(s): R41.82 - Altered mental status, unspecified Status: Acute Assessment and Plan: Altered mental status could be related to hypoxia, pneumonia, severe sepsis -off sedation for greater than 24 hours, patient not opening her eyes or following commands, -08/29/[address] scan of brain did not show any acute intracranial abnormality, chronic age-related changes. -start ammonia level on 08/29/2020 was within normal limits (8) Seizure: Code(s): R56.9 - Unspecified convulsions Status: Acute Assessment and Plan: Patient with history of seizures -continue Depakote -july check EEG (9) Severe sepsis: Code(s): A41.9 - Sepsis, unspecified organism; R65.20 - Severe sepsis without septic shock Status: Acute Assessment and Plan: Patient with altered mental status, hypoxia, elevated lactic acid levels, pneumonia -hemodynamically stable, -femoral central line was inserted for venous insufficiency, will remove central line as patient does not required any more after obtaining peripheral IVs -continue antibiotics as above -blood cultures grew coag-negative staph in 1 bottle, bottle was negative -sputum cultures negative (10) Dementia: Code(s): F03.90 - Unspecified dementia without behavioral disturbance Status: Acute Assessment and Plan: History of dementia, started on and Namenda (11) Hypothyroidism: Code(s)
--- NOTE | 2020-08-29 11:33 | PCDIET ---
ICU Rounding Note: Patient tolerating Vital 1.2 at 55mL/hr goal rate with 30mL water flush every 4 hours. Residuals 120mL and below. Last recorded weight is 71.7kg which is stable. Bowel Motility: No documented BM. Labs Reviewed: RBC (2.56), Hgb (7.9), Hct (24.4), Glu (182), Cr (0.4), Alb (2.1), PO4 (2.2) Meds Noted: Albuterol, Aricept, Zithromax, Atrovent, Rocephin, Synthroid, Vancomycin, K-Phos Additional Notes: Left lateral foot and heel with unstageable pressure ulcers. Following daily in ICU rounds. Assessing/reassessing every Thursday/Thursday.
[2020-08-29] MEDS: LIDOCAINE HCL 1% LOCAL INJ 2 ML AMPUL 5 ML INFILTRATE (14:45)
[2020-08-29] MEDS: NEOMYCIN/POLYMYXIN/BACITRACIN OINTMENT PACKET 1 PACKET (16:15)
--- NOTE | 2020-08-29 18:22 | PM.IMPN ---
Progress Note: A&P Assessment and Plan (1) Encephalopathy: Code(s): G93.40 - Encephalopathy, unspecified Status: Acute Assessment and Plan: Patient not responsive off sedation. Possibly related to recent sedatives and/or from her home medication regiment (though seems less likely). Doubt sepsis. CT brain showing no acute findings. EEG pending. Follow (2) Acute respiratory failure with hypoxia: Code(s): J96.01 - Acute respiratory failure with hypoxia Status: Acute Assessment and Plan: The patient is intubated but off sedation. Respiratory failure secondary to pneumonia. Hypoxia has improved. COVID testing negative. Wean ventilator as tolerated. Appreciate assembler for puller over hand input. (3) Severe sepsis: Code(s): A41.9 - Sepsis, unspecified organism; R65.20 - Severe sepsis without septic shock Status: Acute Assessment and Plan: Patient with severe sepsis as seen with the acute respiratory failure. Lactic acid 3.1. One of 2 blood culture bottles growing Coag Negative Staph. The 2nd bottle remains negative. Repeat BCx also negative to date. Suspect Coag negative Staph is a contaminant. Continue IV antibiotics. (4) Anemia: Code(s): D64.9 - Anemia, unspecified Status: Acute Assessment and Plan: Hgb normally runs 9-11 range past few months. Hgb 9.0 on admission and dropped to 6.9 yesterday and received 1U PRBC. No signs of acute blood loss. Iron <10 with TIBC 118 and sat<8%. Was iron deficient in April. No EGD/[place] listed here. Hgb back up to 7.9 today. Follow. (5) Bilateral pneumonia: Qualifiers: Lung location: unspecified part of lung Pneumonia type: due to unspecified organism Qualified Code(s): J18.9 - Pneumonia, unspecified organism Code(s): J18.9 - Pneumonia, unspecified organism Status: Acute Assessment and Plan: Patient recently hospitalized for pneumonia. Discharged on August 09 with 5 more days of cefdinir. She returns with respiratory failure and low-grade fever but normal white count. CTA showing no pulmonary emboli but does show improvement in the bilateral lower lobe atelectasis/consolidation. As per antibiotic stewardship, she was started on azithromycin and Rocephin. Vancomycin added for severity. Sputum cx pending. Blood cultures positive as above. Continue current IV antibiotics. (6) Acute on chronic diastolic (congestive) heart failure: Code(s): I50.33 - Acute on chronic diastolic (congestive) heart failure Status: Acute Assessment and Plan: The patient has minimal bilateral pleural effusions. BNP 760. Echo here with EF 60-65%, Grade I diastolic dysfunction and small pericardial effusion. Does appear clinically to be mildly fluid overloaded with self diuresis. Not on diuretics chronically. No DVT in the UE or LE. Follow. (7) Seizure: Code(s): R56.9 - Unspecified convulsions Status: Acute Assessment and Plan: Patient has a history of seizures currently on Depakote. This has been continued. Ativan available as needed for signs of symptoms of seizures. Patient was having tremors but not consistent with seizure activity. EEG ordered. Follow. (8) Hypothyroidism: Code(s): E03.9 - Hypothyroidism, unspecified Status: Chronic Assessment and Plan: TSH last month was 4.9. Continue IV levothyroxine. (9) Alzheimer's dementia: Code(s): G30.9 - Alzheimer's disease, unspecified; F02.80 - Dementia in other diseases classified elsewhere without behavioral disturbance Status: Chronic Assessment and Plan: Patient is intubated but off sedation. Home medications of Aricept and Namenda have been resumed. (10) Schizophrenia: Code(s): F20.9 - Schizophrenia, unspecified Status: Chronic Assessment and Plan: Patient sedated. She is on buspirone, Lexapro, Haldol, and Seroquel for mood st
[2020-08-30] VITALS (29 sets, daily range): BP systolic 136–169; BP diastolic 43–79; PULSE 66–108; RESP 12–25; TEMP 36.7–37.3; O2SAT 92–98
[2020-08-30 01:01] LABS: IFOB Positive Control Positive; Immunochemical Fecal Occult Bl Negative (N)
[2020-08-30] MEDS: VALPROIC ACID LIQ 250 MG/5 ML ORAL SOLUTION UDC 500 MG FEED TUBE ×3 (02:05→17:25)
[2020-08-30] MEDS: IPRATROPIUM BR 0.02% INH SOLN 0.5 MG/2.5 ML VIAL INHALATION ×4 (03:31→20:51)
[2020-08-30] MEDS: ALBUTEROL SULFATE NEB 2.5 MG/0.5 ML INH INHALATION ×4 (03:32→20:53)
[2020-08-30 05:03] LABS: Hematocrit 25.4 % (37.0-47.0); Hemoglobin 7.9 g/dL (12.0-15.0); Mean Corpuscular HGB Conc 31.1 g/dl (32-36); Mean Corpuscular Hemoglobin 30.4 pg (26-34); Mean Corpuscular Volume 97.7 fl (80-100); Mean Platelet Volume 9.4 fl (7.4-10.4); Platelet Count Result 443 k/mm3 (150-375); Red Cell Distribution Width 17.3 % (11.5-14.5); White Blood Count 8.1 K/mm3 (4.5-10.0)
[2020-08-30 05:16] LABS: Alanine Aminotransferase 8 U/L (4-35); Albumin Level 2.2 g/dL (3.5-5.1); Alkaline Phosphatase 134 U/L (38-126); Anion Gap 4 mmol/L (8-16); Aspartate Amino Transferase 25 U/L (14-36); Bilirubin,Total < 0.1 mg/dL (0.2-1.3); Blood Urea Nitrogen 9 mg/dL (7-17); Calcium 7.9 mg/dL (8.4-10.2); Carbon Dioxide 30 mmol/L (22-30); Chloride 103 mmol/L (98-107); Estimated CRCL calculation 115 ml/min; Estimated Glomerular Filt Rate > 60; Glucose 298 mg/dL (65-105); Magnesium 1.7 mg/dL (1.6-2.3); Phosphorus 2.6 mg/dL (2.5-4.5); Potassium 3.9 mmol/L (3.4-5.0); Sodium 137 mmol/L (137-145)
[2020-08-30] MEDS: LEVOTHYROXINE SODIUM INJ 100 MCG/5 ML VIAL 25 MCG IV PUSH (05:56)
[2020-08-30] MEDS: CENTRAL LINE FLUSH 10 ML IV PUSH ×3 (05:56→20:14)
[2020-08-30 06:14] LABS: Alveolar/Arterial O2 Gradient 99.2 mmHg; Base Excess ABG 3.9 mEq/l (+/-2.0); Carboxyhemoglobin 0.3 % THb (0-2.0); Fractional Inspired Oxygen 30 %; HCO3 ABG 25.7 mEq/l (22.0-26.0); Methemoglobin ABG 0.5 %THb (0-1.5); Oxygen Content ABG 15.1 %vol (16.0-22.0); Oxygen Saturation ABG 97.2 % (95.0-100.0); Oxyhemoglobin 95.2 % THb (90.0-100.0); PCO2 ABG 29.4 mmHg (35.0-45.0); PO2 ABG 80.2 mmHg (80.0-100.0); PO2 FiO2 Ratio Arterial Blood 2.67 %; Total Hemoglobin 11.2 g/dL (12.0-18.0)
[2020-08-30 06:15] LABS: Device VENTILATOR; Modified Allen's Test Pass; Site Drawn LEFT RADIAL; pH ABG 7.559 (7.350-7.450)
[2020-08-30 06:16] LABS: Arterial Blood Gas PEEP 5 cmH2O; Arterial Blood Gas Tidal Volume 400 ml; Arterial Blood Gas Vent Mode CMV; Arterial Blood Gas Ventilator rate 14 /MIN
[2020-08-30] MEDS: FUROSEMIDE INJ 40 MG/4 ML VIAL IV PUSH (08:44)
[2020-08-30] MEDS: MINERAL OIL/WHITE PETROLATUM OINTMENT 1 APPLIC EACH EYE ×2 (08:46→20:14)
[2020-08-30] MEDS: QUEtiapine FUMARATE 100 MG TABLET 300 MG FEED TUBE (08:46)
[2020-08-30] MEDS: PANTOPRAZOLE SODIUM IV 40 MG VIAL IV PUSH ×2 (08:46→20:14)
[2020-08-30] MEDS: busPIRone HCL 10 MG TABLET FEED TUBE ×3 (08:47→16:13)
[2020-08-30] MEDS: MEMANTINE 10 MG TABLET FEED TUBE ×2 (08:47→16:13)
[2020-08-30] MEDS: DONEPEZIL HCL 10 MG TABLET FEED TUBE (08:48)
[2020-08-30] MEDS: ESCITALOPRAM OXALATE 10 MG TABLET FEED TUBE (08:48)
--- NOTE | 2020-08-30 09:07 | WPDNEUROLOGY ---
Neurology EEG Report General Information Date of Study: 08/29/20 TEST EEG DIAGNOSIS seizures CONDITION OF RECORDING unresponsive, on vent in ICU with history of no sedation for 24 hours EEG NUMBER [id number] CLINICAL HISTORY patient is in ICU on a vent and unresponsive following a respiratory arrest and has not had any sedation for over 24 hours. EEG DESCRIPTION old record consists of low-voltage 15 to 18 hertz per 2nd beta activity admixed with low-voltage 5 to 7 hertz per 2nd theta activity and multiple muscle artifacts particularly during drowsiness. Bilateral symmetrical sleep activity seen during sleep. Non paroxysmal. Nonfocal. Nonlateralizing. IMPRESSION Abnormal record during drowsiness and sleep . No evidence of status epilepticus or any focal seizures
[2020-08-30 11:16] LABS: Glucose Point of Care 301 mg/dl (65-105)
[2020-08-30] MEDS: INSULIN ASPART (*BKC) 100 UNITS/ML SUB-Q ×3 (11:18→23:41)
--- NOTE | 2020-08-30 11:21 | PCDIET ---
ICU Rounding Note: Patient tolerating Vital 1.2 at 55mL/hr with 30mL water flush every 4 hours. Discussed high blood sugar with MD. Blood sugar rechecked; Dr. Florentino ordered change to Glucerna 1.2. Recommended 55mL/hr goal rate which will provide 1452kcal, 72g protein and 981mL free water over 22 hours/day. Would continue 30mL water flush every 4 hours at this time. Last recorded weight is 76.4kg which is increased from last review. +I/O. Bowel Motility: BM x 1 today. Labs Reviewed: Hgb (7.9), Hct (25.4), Glu (301), Alb (2.2), Valentina Ca (8.44) Meds Noted: Albuterol, Buspar, Lasix, Zithromax, Rocephin, Protonix, Seroquel, Novolog, Atrovent, Synthroid, Valproate Additional Notes: Left foot and heel with unstageable pressure ulcers. Following daily in ICU rounds. Assessing/reassessing every Thursday/Thursday.
--- NOTE | 2020-08-30 11:52 | WPDINTPN ---
Progress Note: A&P Assessment and Plan (1) Anemia: Code(s): D64.9 - Anemia, unspecified Status: Acute Assessment and Plan: Patient dropped her hemoglobin to 6.9 on 08/28/2021, received 1 unit of packed RBCs. -hemoglobin 7.9 this morning and remained stable -check stool for Hemoccult -NEGATIVE on 08/29/2020 -iron panel reflective of anemia of chronic disease, vitamin B12 and folic acid within normal limits -LDH normal, -haptoglobin is pending -continue PPI IV Q12H -continue to monitor H/H -may require GI consult if blood counts continue to drop (2) Acute respiratory failure with hypoxia: Code(s): J96.01 - Acute respiratory failure with hypoxia Status: Acute Assessment and Plan: Acute respiratory failure likely related to pneumonia, heart failure/volume overload -patient intubated on 08/26/2020 after arriving from the [facility] with severe hypoxia -continue mechanical ventilation, on CMV mode, peep of 5, 30% FiO2, wean FiO2 to maintain O2 sats greater than 92% -chest x-ray and CTA chest reviewed, no evidence pulmonary embolism despite D-dimer being elevated -continue azithromycin, ceftriaxone and vancomycin -ABGs reviewed and improving -[facility], patient's baseline is that she opens her eyes, says yes and no to her name. that is about it. -patient was placed on spontaneous breathing trial, goes into apneic and switches to SIMV. -place patient in ASV mode -likely unable to tolerated SBT due to her Klebsiella pneumonia, we will give additional time and try SBT daily (3) Bilateral pneumonia: Qualifiers: Lung location: unspecified part of lung Pneumonia type: due to unspecified organism Qualified Code(s): J18.9 - Pneumonia, unspecified organism Code(s): J18.9 - Pneumonia, unspecified organism Status: Acute Assessment and Plan: Sputum cultures growing Klebsiella -continue ceftriaxone (4) Suspected COVID-19 virus infection: Code(s): Z20.822 - Contact with and (suspected) exposure to COVID-19 Status: Acute Assessment and Plan: Patient with hypoxia, acute respiratory failure, bilateral infiltrates -SARS-CoV-2 PCR negative -elevated D-dimer, elevated LDH -discontinue precautions (5) Acute on chronic diastolic (congestive) heart failure: Code(s): I50.33 - Acute on chronic diastolic (congestive) heart failure Status: Acute Assessment and Plan: Bilateral lower extremity edema, acute respiratory failure -echocardiogram 08/29/2020: EF of 60-65%, grade 1 diastolic dysfunction -08/28/2020 venous Dopplers bilateral upper and lower extremity negative for DVTs (6) Electrolyte imbalance: Code(s): E87.8 - Other disorders of electrolyte and fluid balance, not elsewhere classified Status: Acute Assessment and Plan: Resolved (7) Altered mental status: Qualifiers: Altered mental status type: unspecified Qualified Code(s): R41.82 - Altered mental status, unspecified Code(s): R41.82 - Altered mental status, unspecified Status: Acute Assessment and Plan: Altered mental status could be related to hypoxia, pneumonia, severe sepsis -off sedation for greater than 24 hours, patient not opening her eyes or following commands, -08/29/[address] scan of brain did not show any acute intracranial abnormality, chronic age-related changes. -start ammonia level on 08/29/2020 was within normal limits -discussed with sn[facility], patient is at her baseline which she only opens her eyes and says yes and no to her name (8) Seizure: Code(s): R56.9 - Unspecified convulsions Status: Acute Assessment and Plan: Patient with history of seizures -continue Depakote -EEG 08/29/2020 with no evidence of status epilepticus or focal seizures. (9) Severe sepsis: Code(s): A41.9 - Sepsis, unspecified organism; R65.20 - Severe sepsis without septic shock Status: Acute
[2020-08-30] MEDS: INSULIN GLARGINE (*BKC) 100 UNITS/ML SUB-Q (12:55)
--- NOTE | 2020-08-30 17:35 | PM.IMPN ---
Progress Note: A&P Assessment and Plan (1) Encephalopathy: Code(s): G93.40 - Encephalopathy, unspecified Status: Acute Assessment and Plan: Patient not responsive off sedation. Possibly related to recent sedatives and/or from her home medication regiment. Doubt sepsis. CT brain showing no acute findings. EEG showing an abnormal record during drowsiness and sleep but no evidence of status epilepticus or any focal seizures. Continue to monitor. (2) Acute respiratory failure with hypoxia: Code(s): J96.01 - Acute respiratory failure with hypoxia Status: Acute Assessment and Plan: The patient is intubated but off sedation. Respiratory failure secondary to pneumonia. Hypoxia has improved. COVID testing negative. Wean ventilator as tolerated. Appreciate housekeeping room inspector input. (3) Severe sepsis: Code(s): A41.9 - Sepsis, unspecified organism; R65.20 - Severe sepsis without septic shock Status: Acute Assessment and Plan: Patient with severe sepsis as seen with the acute respiratory failure. Lactic acid 3.1. One of 2 blood culture bottles growing Coag Negative Staph sensitive to Vanco. The 2nd bottle remains negative. Repeat BCx also negative to date. Suspect Coag negative Staph is a contaminant. Continue IV antibiotics for PNA. (4) Anemia: Code(s): D64.9 - Anemia, unspecified Status: Acute Assessment and Plan: Hgb normally runs 9-11 range past few months. Hgb 9.0 on admission and dropped to 6.9 on 08/28 and she received 1U PRBC. No signs of acute blood loss. Iron <10 with TIBC 118 and sat<8%. Was iron deficient in April. No EGD/[place] listed here. Hgb back up to 7.9 and stable. Continue to follow. (5) Bilateral pneumonia: Qualifiers: Lung location: unspecified part of lung Pneumonia type: due to unspecified organism Qualified Code(s): J18.9 - Pneumonia, unspecified organism Code(s): J18.9 - Pneumonia, unspecified organism Status: Acute Assessment and Plan: Patient recently hospitalized for pneumonia. Discharged on August 09 with 5 more days of cefdinir. She returns with respiratory failure and low-grade fever but normal white count. CTA showing no pulmonary emboli but does show improvement in the bilateral lower lobe atelectasis/consolidation. As per antibiotic stewardship, she was started on azithromycin and Rocephin. Vancomycin added for severity. Sputum cx growing Klebsiella with sensitivities pending. Blood cultures positive as above. Continue current IV antibiotics. (6) Acute on chronic diastolic (congestive) heart failure: Code(s): I50.33 - Acute on chronic diastolic (congestive) heart failure Status: Acute Assessment and Plan: The patient has minimal bilateral pleural effusions. BNP 760. Echo here with EF 60-65%, Grade I diastolic dysfunction and small pericardial effusion. Does appear clinically to be mildly fluid overloaded with self diuresis. No DVT in the UE or LE. Lasix x 1 given. Follow. (7) Seizure: Code(s): R56.9 - Unspecified convulsions Status: Acute Assessment and Plan: Patient has a history of seizures currently on Depakote. This has been continued. Ativan available as needed for signs of symptoms of seizures. Patient was having tremors but not consistent with seizure activity. EEG as mentioned above. Follow. (8) Hypothyroidism: Code(s): E03.9 - Hypothyroidism, unspecified Status: Chronic Assessment and Plan: TSH last month was 4.9. Continue IV levothyroxine. (9) Alzheimer's dementia: Code(s): G30.9 - Alzheimer's disease, unspecified; F02.80 - Dementia in other diseases classified elsewhere without behavioral disturbance Status: Chronic Assessment and Plan: Patient is intubated but off sedation. Home medications of Aricept and Namenda have been resumed. (10) Schizophrenia:
[2020-08-30 18:31] LABS: Glucose Point of Care 220 mg/dl (65-105)
[2020-08-30 19:39] LABS: Haptoglobin 333 mg/dL (43-212)
[2020-08-30] MEDS: QUEtiapine FUMARATE 100 MG TABLET 200 MG FEED TUBE (20:14)
[2020-08-30 23:41] LABS: Glucose Point of Care 251 mg/dl (65-105)
[2020-08-31] VITALS (27 sets, daily range): BP systolic 144–169; BP diastolic 52–125; PULSE 76–103; RESP 10–22; TEMP 36.6–37.1; O2SAT 95–98
[2020-08-31] MEDS: ALBUTEROL SULFATE NEB 2.5 MG/0.5 ML INH INHALATION ×4 (02:25→21:19)
[2020-08-31] MEDS: IPRATROPIUM BR 0.02% INH SOLN 0.5 MG/2.5 ML VIAL INHALATION ×4 (02:25→21:19)
[2020-08-31] MEDS: VALPROIC ACID LIQ 250 MG/5 ML ORAL SOLUTION UDC 500 MG FEED TUBE ×3 (02:27→18:26)
[2020-08-31 04:42] LABS: Alveolar/Arterial O2 Gradient 89.4 mmHg; Base Excess ABG 6.7 mEq/l (+/-2.0); Carboxyhemoglobin 0.2 % THb (0-2.0); Fractional Inspired Oxygen 30 %; HCO3 ABG 29.3 mEq/l (22.0-26.0); Methemoglobin ABG 0.8 %THb (0-1.5); Oxygen Content ABG 11.9 %vol (16.0-22.0); Oxygen Saturation ABG 97.5 % (95.0-100.0); Oxyhemoglobin 95.3 % THb (90.0-100.0); PCO2 ABG 33.8 mmHg (35.0-45.0); PO2 ABG 84.8 mmHg (80.0-100.0); PO2 FiO2 Ratio Arterial Blood 2.83 %; Reduced Hemoglobin 3.7 %THb (0-5.0); Total Hemoglobin 8.8 g/dL (12.0-18.0)
[2020-08-31 04:43] LABS: Device VENTILATOR; Modified Allen's Test Unable to perform; Site Drawn RIGHT RADIAL; pH ABG 7.556 (7.350-7.450)
[2020-08-31 04:44] LABS: Arterial Blood Gas Minute Volume 6 LPM; Arterial Blood Gas PEEP 5 cmH2O; Arterial Blood Gas Vent Mode ASV
[2020-08-31] MEDS: LEVOTHYROXINE SODIUM INJ 100 MCG/5 ML VIAL 25 MCG IV PUSH (05:25)
[2020-08-31] MEDS: CENTRAL LINE FLUSH 10 ML IV PUSH ×3 (05:26→19:59)
[2020-08-31] MEDS: INSULIN ASPART (*BKC) 100 UNITS/ML SUB-Q ×2 (05:28→12:12)
[2020-08-31 05:31] LABS: Glucose Point of Care 229 mg/dl (65-105)
[2020-08-31 05:35] LABS: Hematocrit 25.1 % (37.0-47.0); Mean Corpuscular HGB Conc 31.9 g/dl (32-36); Mean Corpuscular Volume 97.3 fl (80-100); Mean Platelet Volume 9.3 fl (7.4-10.4); Platelet Count Result 467 k/mm3 (150-375); Red Blood Count 2.58 M/mm3 (4.2-5.4); White Blood Count 11.4 K/mm3 (4.5-10.0)
[2020-08-31 05:51] LABS: Alanine Aminotransferase 11 U/L (4-35); Albumin Level 2.3 g/dL (3.5-5.1); Alkaline Phosphatase 165 U/L (38-126); Anion Gap 5 mmol/L (8-16); Aspartate Amino Transferase 33 U/L (14-36); Bilirubin,Total < 0.1 mg/dL (0.2-1.3); Blood Urea Nitrogen 12 mg/dL (7-17); Calcium 8.5 mg/dL (8.4-10.2); Carbon Dioxide 30 mmol/L (22-30); Chloride 98 mmol/L (98-107); Estimated CRCL calculation 96 ml/min; Estimated Glomerular Filt Rate > 60; Glucose 214 mg/dL (65-105); Magnesium 1.9 mg/dL (1.6-2.3); Phosphorus 2.5 mg/dL (2.5-4.5); Potassium 3.9 mmol/L (3.4-5.0); Sodium 133 mmol/L (137-145)
[2020-08-31] MEDS: FUROSEMIDE INJ 40 MG/4 ML VIAL IV PUSH ×2 (08:45→17:58)
[2020-08-31] MEDS: busPIRone HCL 10 MG TABLET FEED TUBE ×3 (08:45→17:58)
[2020-08-31] MEDS: PANTOPRAZOLE SODIUM IV 40 MG VIAL IV PUSH ×2 (08:45→19:59)
[2020-08-31] MEDS: ESCITALOPRAM OXALATE 10 MG TABLET FEED TUBE (08:46)
[2020-08-31] MEDS: DONEPEZIL HCL 10 MG TABLET FEED TUBE (08:46)
[2020-08-31] MEDS: MEMANTINE 10 MG TABLET FEED TUBE ×2 (08:47→17:59)
[2020-08-31] MEDS: QUEtiapine FUMARATE 100 MG TABLET 200 MG FEED TUBE ×2 (08:47→19:59)
[2020-08-31] MEDS: MINERAL OIL/WHITE PETROLATUM OINTMENT 1 APPLIC EACH EYE ×2 (08:47→19:58)
[2020-08-31] MEDS: INSULIN GLARGINE (*BKC) 100 UNITS/ML 10 UNITS SUB-Q (08:58)
--- NOTE | 2020-08-31 09:38 | WPDINTPN ---
Progress Note: A&P Assessment and Plan (1) Anemia: Code(s): D64.9 - Anemia, unspecified Status: Acute Assessment and Plan: Patient dropped her hemoglobin to 6.9 on 08/28/2021, received 1 unit of packed RBCs. -hemoglobin 8.0 this morning and remained stable -check stool for Hemoccult -NEGATIVE on 08/29/2020 -iron panel reflective of anemia of chronic disease, vitamin B12 and folic acid within normal limits -LDH normal, -haptoglobin elevated -continue PPI IV Q12H -continue to monitor H/H -may require GI consult if blood counts continue to drop (2) Acute respiratory failure with hypoxia: Code(s): J96.01 - Acute respiratory failure with hypoxia Status: Acute Assessment and Plan: Acute respiratory failure likely related to pneumonia, heart failure/volume overload -patient intubated on 08/26/2020 after arriving from the [place] [facility] with severe hypoxia - currently on ASV mode, peep of 5, 30% FiO2, wean FiO2 to maintain O2 sats greater than 92% -chest x-ray and CTA chest reviewed, no evidence pulmonary embolism despite D-dimer being elevated -continue azithromycin, ceftriaxone, discontinue vancomycin -ABGs reviewed and improving -discussed with [facility], patient's baseline is that she opens her eyes, says yes and no to her name. that's about it. -Patient placed on pressure support ventilation 10/5 and tolerating, will evaluated decreased to [address] patient on SBT. (3) Bilateral pneumonia: Qualifiers: Lung location: unspecified part of lung Pneumonia type: due to unspecified organism Qualified Code(s): J18.9 - Pneumonia, unspecified organism Code(s): J18.9 - Pneumonia, unspecified organism Status: Acute Assessment and Plan: Sputum cultures growing Klebsiella -continue ceftriaxone (4) Suspected COVID-19 virus infection: Code(s): Z20.822 - Contact with and (suspected) exposure to COVID-19 Status: Acute Assessment and Plan: Patient with hypoxia, acute respiratory failure, bilateral infiltrates -SARS-CoV-2 PCR negative -elevated D-dimer, elevated LDH -discontinue precautions (5) Acute on chronic diastolic (congestive) heart failure: Code(s): I50.33 - Acute on chronic diastolic (congestive) heart failure Status: Acute Assessment and Plan: Bilateral lower extremity edema, acute respiratory failure -echocardiogram 08/29/2020: EF of 60-65%, grade 1 diastolic dysfunction -08/28/2020 venous Dopplers bilateral upper and lower extremity negative for DVTs (6) Electrolyte imbalance: Code(s): E87.8 - Other disorders of electrolyte and fluid balance, not elsewhere classified Status: Acute Assessment and Plan: Resolved (7) Altered mental status: Qualifiers: Altered mental status type: unspecified Qualified Code(s): R41.82 - Altered mental status, unspecified Code(s): R41.82 - Altered mental status, unspecified Status: Acute Assessment and Plan: Altered mental status could be related to hypoxia, pneumonia, severe sepsis -off sedation for greater than 24 hours, patient not opening her eyes or following commands, -08/29/[address] scan of brain did not show any acute intracranial abnormality, chronic age-related changes. -start ammonia level on 08/29/2020 was within normal limits -discussed with [place] [facility], patient is at her baseline which she only opens her eyes and says yes and no to her name -PATIENT SEEMS TO BE AT BASELINE (8) Seizure: Code(s): R56.9 - Unspecified convulsions Status: Acute Assessment and Plan: Patient with history of seizures -continue Depakote -EEG 08/29/2020 with no evidence of status epilepticus or focal seizures. (9) Severe sepsis: Code(s): A41.9 - Sepsis, unspecified organism; R65.20 - Severe sepsis without septic shock Status: Acute Assessment and Plan: Patient with altered mental status, hypoxia, elevated lac
[2020-08-31] MEDS: ENOXAPARIN 40 MG/0.4 ML SYRINGE SUB-Q (10:42)
--- NOTE | 2020-08-31 11:36 | PCDIET ---
Nutrition Follow-Up Complete: Nutrition Diagnosis: Inadequate oral intake related to oral intubation as evidenced by NPO status. Nutrition Goal: Patient to meet estimated nutritional needs. Goal met. Patient tolerating Glucerna 1.2 at 55mL/hr goal rate with 30mL water flush every 4 hours. Last recorded weight is 74.4 kg which is decreased from last review, but up from admission. -I/O. Bowel Motility: Last documented BM on 08/30/20 x 1. Labs Reviewed: WBC (11.4), Hgb (8.0), Hct (25.1), Glu (214) Meds Noted: Albuterol, Rocephin, Aricept, Namenda, Zithromax, Lasix, Novolog, Protonix, Lantus, Atrovent, Synthroid, Seroquel, Valproic Acid Additional Notes: Calcium, magnesium, and phosphorus levels normal. Left foot and heel with unstageable pressure ulcers. Will continue to monitor with same goal. Nutrition Monitoring and Evaluation: Follow up every Thursday/Thursday.
[2020-08-31 11:53] LABS: Glucose Point of Care 206 mg/dl (65-105)
--- NOTE | 2020-08-31 16:34 | PM.IMPN ---
Progress Note: A&P Assessment and Plan (1) Encephalopathy: Code(s): G93.40 - Encephalopathy, unspecified Status: Acute Assessment and Plan: Patient more awake today with lowering the Seroquel dose but still not responsive. Possibly related to recent sedatives and/or from her home medication regiment. Doubt sepsis. CT brain showing no acute findings. EEG showing an abnormal record during drowsiness and sleep but no evidence of status epilepticus or any focal seizures. Primaxin may interact with VPA by decreasing absorption and/or increasing excretion thus lowering the systemic levels. Need to monitor very closely. (2) Acute respiratory failure with hypoxia: Code(s): J96.01 - Acute respiratory failure with hypoxia Status: Acute Assessment and Plan: The patient is intubated but off sedation. Respiratory failure secondary to pneumonia. Hypoxia has improved. COVID testing negative. Wean ventilator as tolerated. Possible extubation tomorrow. Appreciate sorting supervisor input. (3) Severe sepsis: Code(s): A41.9 - Sepsis, unspecified organism; R65.20 - Severe sepsis without septic shock Status: Acute Assessment and Plan: Patient with severe sepsis as seen with the acute respiratory failure, Lactic acid 3.1. One of 2 blood culture bottles growing Coag Negative Staph sensitive to Vanco. The 2nd bottle remains negative. Repeat BCx also negative to date. Suspect Coag negative Staph is a contaminant and thus Vanco stopped. Adjust IV antibiotics for ESBL Kleb PNA. (4) Bilateral pneumonia: Qualifiers: Lung location: unspecified part of lung Pneumonia type: due to unspecified organism Qualified Code(s): J18.9 - Pneumonia, unspecified organism Code(s): J18.9 - Pneumonia, unspecified organism Status: Acute Assessment and Plan: Patient recently hospitalized for pneumonia. Discharged on August 09 with 5 more days of cefdinir. She returns with respiratory failure and low-grade fever but normal white count. CTA showing no pulmonary emboli but does show improvement in the bilateral lower lobe atelectasis/consolidation. As per antibiotic stewardship, she was started on azithromycin and Rocephin. Vancomycin added for severity. Sputum cx growing ESBL Klebsiella with Blood cultures positive as above. This could explain why she returned despite abx treatment for her PNA last visit. As above (5) Anemia: Code(s): D64.9 - Anemia, unspecified Status: Acute Assessment and Plan: Hgb normally runs 9-11 range past few months. Hgb 9.0 on admission and dropped to 6.9 on 08/28 and she received 1U PRBC. No signs of acute blood loss. Iron <10 with TIBC 118 and sat<8%. Was iron deficient in April. No EGD/[place] listed here. Hgb back up to 8 and stable. Continue to follow. (6) Acute on chronic diastolic (congestive) heart failure: Code(s): I50.33 - Acute on chronic diastolic (congestive) heart failure Status: Acute Assessment and Plan: The patient has minimal bilateral pleural effusions. BNP 760. Echo here with EF 60-65%, Grade I diastolic dysfunction and small pericardial effusion. No DVT in the UE or LE. Does appear clinically to be mildly fluid overloaded. Tolerating the intermittent Lasix diuresis. Follow. (7) Seizure: Code(s): R56.9 - Unspecified convulsions Status: Acute Assessment and Plan: Patient has a history of seizures currently on Depakote. This has been continued. Ativan available as needed for signs of symptoms of seizures. Patient was having tremors but not consistent with seizure activity. EEG as mentioned above. Follow. (8) Hypothyroidism: Code(s): E03.9 - Hypothyroidism, unspecified Status: Chronic Assessment and Plan: TSH last month was 4.9. Continue levothyroxine. (9) Alzheimer's dementia: Code(s): G30.9 - Alzheimer's disease, un
[2020-08-31 18:40] LABS: Glucose Point of Care 158 mg/dl (65-105)
[2020-09-01] VITALS (29 sets, daily range): BP systolic 121–184; BP diastolic 47–108; PULSE 92–107; RESP 12–32; TEMP 36.5–37.3; O2SAT 96–100
[2020-09-01] MEDS: INSULIN ASPART (*BKC) 100 UNITS/ML SUB-Q (00:01)
[2020-09-01 00:05] LABS: Glucose Point of Care 211 mg/dl (65-105)
[2020-09-01] MEDS: ALBUTEROL SULFATE NEB 2.5 MG/0.5 ML INH INHALATION ×4 (02:14→21:04)
[2020-09-01] MEDS: IPRATROPIUM BR 0.02% INH SOLN 0.5 MG/2.5 ML VIAL INHALATION ×4 (02:14→21:04)
[2020-09-01] MEDS: VALPROIC ACID LIQ 250 MG/5 ML ORAL SOLUTION UDC 500 MG FEED TUBE ×3 (02:44→17:15)
[2020-09-01 05:37] LABS: Alveolar/Arterial O2 Gradient 68.9 mmHg; Base Excess ABG 9.4 mEq/l (+/-2.0); Carboxyhemoglobin 0.2 % THb (0-2.0); Fractional Inspired Oxygen 30 %; HCO3 ABG 32.7 mEq/l (22.0-26.0); Methemoglobin ABG 0.5 %THb (0-1.5); Oxygen Content ABG 14.1 %vol (16.0-22.0); Oxygen Saturation ABG 98.1 % (95.0-100.0); Oxyhemoglobin 96.4 % THb (90.0-100.0); PCO2 ABG 39.1 mmHg (35.0-45.0); PO2 ABG 99.1 mmHg (80.0-100.0); Reduced Hemoglobin 2.9 %THb (0-5.0); Total Hemoglobin 10.3 g/dL (12.0-18.0)
[2020-09-01 05:38] LABS: Device VENTILATOR; Modified Allen's Test Pass; Site Drawn LEFT RADIAL
[2020-09-01 05:39] LABS: Arterial Blood Gas PEEP 5 cmH2O; Arterial Blood Gas Pressure Support 8 cmH2O; Arterial Blood Gas Vent Mode SPONTANEOUS
[2020-09-01] MEDS: CENTRAL LINE FLUSH 10 ML IV PUSH ×3 (06:11→21:22)
[2020-09-01 06:13] LABS: Hematocrit 25.5 % (37.0-47.0); Mean Corpuscular HGB Conc 31.4 g/dl (32-36); Mean Corpuscular Hemoglobin 30.7 pg (26-34); Mean Corpuscular Volume 97.7 fl (80-100); Mean Platelet Volume 9.1 fl (7.4-10.4); Platelet Count Result 471 k/mm3 (150-375); Red Blood Count 2.61 M/mm3 (4.2-5.4); Red Cell Distribution Width 16.6 % (11.5-14.5); White Blood Count 11.6 K/mm3 (4.5-10.0)
[2020-09-01] MEDS: LEVOTHYROXINE SODIUM 50 MCG TABLET FEED TUBE (06:13)
[2020-09-01 06:15] LABS: Glucose Point of Care 146 mg/dl (65-105)
[2020-09-01 06:25] LABS: Alanine Aminotransferase 11 U/L (4-35); Albumin Level 2.4 g/dL (3.5-5.1); Alkaline Phosphatase 157 U/L (38-126); Anion Gap 3 mmol/L (8-16); Aspartate Amino Transferase 31 U/L (14-36); Bilirubin,Total < 0.1 mg/dL (0.2-1.3); Blood Urea Nitrogen 15 mg/dL (7-17); Calcium 8.2 mg/dL (8.4-10.2); Carbon Dioxide 37 mmol/L (22-30); Chloride 95 mmol/L (98-107); Estimated CRCL calculation 95 ml/min; Estimated Glomerular Filt Rate > 60; Glucose 159 mg/dL (65-105); Phosphorus 4.1 mg/dL (2.5-4.5); Sodium 135 mmol/L (137-145)
[2020-09-01] MEDS: busPIRone HCL 10 MG TABLET FEED TUBE ×3 (08:42→17:15)
[2020-09-01] MEDS: ESCITALOPRAM OXALATE 10 MG TABLET FEED TUBE (08:42)
[2020-09-01] MEDS: INSULIN GLARGINE (*BKC) 100 UNITS/ML 10 UNITS SUB-Q (08:42)
[2020-09-01] MEDS: MEMANTINE 10 MG TABLET FEED TUBE ×2 (08:42→17:15)
[2020-09-01] MEDS: MINERAL OIL/WHITE PETROLATUM OINTMENT 1 APPLIC EACH EYE ×2 (08:43→21:22)
[2020-09-01] MEDS: ENOXAPARIN 40 MG/0.4 ML SYRINGE SUB-Q (08:43)
[2020-09-01] MEDS: QUEtiapine FUMARATE 100 MG TABLET 200 MG FEED TUBE ×2 (08:46→21:22)
[2020-09-01] MEDS: PANTOPRAZOLE SODIUM IV 40 MG VIAL IV PUSH ×2 (08:46→21:22)
[2020-09-01] MEDS: DONEPEZIL HCL 10 MG TABLET FEED TUBE (08:47)
--- NOTE | 2020-09-01 08:56 | PM.IMPN ---
Progress Note: A&P Assessment and Plan (1) Encephalopathy: Code(s): G93.40 - Encephalopathy, unspecified Status: Acute Assessment and Plan: Patient remains awake 09/01. Possibly related to recent sedatives and/or from her home medication regiment. Doubt sepsis. CT brain showing no acute findings. EEG showing an abnormal record during drowsiness and sleep but no evidence of status epilepticus or any focal seizures. Primaxin may interact with VPA by decreasing absorption and/or increasing excretion thus lowering the systemic levels. Need to monitor very closely. (2) Acute respiratory failure with hypoxia: Code(s): J96.01 - Acute respiratory failure with hypoxia Status: Acute Assessment and Plan: The patient is intubated but off sedation. Respiratory failure secondary to pneumonia. Hypoxia has improved. COVID testing negative. Wean ventilator as tolerated. Possible extubation 09/01. (3) Severe sepsis: Code(s): A41.9 - Sepsis, unspecified organism; R65.20 - Severe sepsis without septic shock Status: Acute Assessment and Plan: Patient with severe sepsis as seen with the acute respiratory failure, Lactic acid 3.1. One of 2 blood culture bottles growing Coag Negative Staph sensitive to Vanco. The 2nd bottle remains negative. Repeat BCx also negative to date. Suspect Coag negative Staph is a contaminant and thus Vanco stopped. Adjust IV antibiotics for ESBL Kleb PNA. (4) Bilateral pneumonia: Qualifiers: Lung location: unspecified part of lung Pneumonia type: due to unspecified organism Qualified Code(s): J18.9 - Pneumonia, unspecified organism Code(s): J18.9 - Pneumonia, unspecified organism Status: Acute Assessment and Plan: Patient recently hospitalized for pneumonia. Discharged on August 09 with 5 more days of cefdinir. She returns with respiratory failure and low-grade fever but normal white count. CTA showing no pulmonary emboli but does show improvement in the bilateral lower lobe atelectasis/consolidation. As per antibiotic stewardship, she was started on azithromycin and Rocephin. Vancomycin added for severity. Sputum cx growing ESBL Klebsiella with Blood cultures positive as above. This could explain why she returned despite abx treatment for her PNA last visit. As above (5) Anemia: Code(s): D64.9 - Anemia, unspecified Status: Acute Assessment and Plan: Hgb normally runs 9-11 range past few months. Hgb 9.0 on admission and dropped to 6.9 on 08/28 and she received 1U PRBC. No signs of acute blood loss. Iron <10 with TIBC 118 and sat<8%. Was iron deficient in April. No EGD/[place] listed here. Hgb back up to 8 and stable. Continue to follow. (6) Acute on chronic diastolic (congestive) heart failure: Code(s): I50.33 - Acute on chronic diastolic (congestive) heart failure Status: Acute Assessment and Plan: The patient has minimal bilateral pleural effusions. BNP 760. Echo here with EF 60-65%, Grade I diastolic dysfunction and small pericardial effusion. No DVT in the UE or LE. Does appear clinically to be mildly fluid overloaded. Tolerating the intermittent Lasix diuresis. Follow. (7) Seizure: Code(s): R56.9 - Unspecified convulsions Status: Acute Assessment and Plan: Patient has a history of seizures currently on Depakote. This has been continued. Ativan available as needed for signs of symptoms of seizures. Patient was having tremors but not consistent with seizure activity. EEG as mentioned above. Follow. (8) Hypothyroidism: Code(s): E03.9 - Hypothyroidism, unspecified Status: Chronic Assessment and Plan: TSH last month was 4.9. Continue levothyroxine. (9) Alzheimer's dementia: Code(s): G30.9 - Alzheimer's disease, unspecified; F02.80 - Dementia in other diseases classified elsewhere without behavioral dis
--- NOTE | 2020-09-01 09:26 | WPDINTPN ---
Progress Note: A&P Assessment and Plan (1) Anemia: Code(s): D64.9 - Anemia, unspecified Status: Acute Assessment and Plan: Patient dropped her hemoglobin to 6.9 on 08/28/2021, received 1 unit of packed RBCs. -hemoglobin 8.0 this morning and remained stable - stool for Hemoccult -NEGATIVE on 08/29/2020 -iron panel reflective of anemia of chronic disease, vitamin B12 and folic acid within normal limits -LDH normal, -haptoglobin elevated -continue PPI IV Q12H -continue to monitor H/H -may require GI consult if blood counts continue to drop (2) Acute respiratory failure with hypoxia: Code(s): J96.01 - Acute respiratory failure with hypoxia Status: Acute Assessment and Plan: Acute respiratory failure likely related to pneumonia, heart failure/volume overload -patient intubated on 08/26/2020 after [facility] the [facility] with severe hypoxia - currently on PSV 8/5 30% FiO2, wean FiO2 to maintain O2 sats greater than 92% -chest x-ray and CTA chest reviewed, no evidence pulmonary embolism despite D-dimer being elevated -patient on azithromycin and imipenem due to ESBL Klebsiella in sputum -ABGs reviewed and improving -discussed with [facility], patient's baseline is that she opens her eyes, says yes and no to her name. that's about it. -discussed with Claudia Jean, patient's daughter, and updated with patient's condition, plan of care. I explained to her regarding patient being on SBT and be evaluating for extubation, if for whatever reasons patient fails extubation due to her mental status or her clinical condition the daughter does not want her to be REintubated (3) Bilateral pneumonia: Qualifiers: Lung location: unspecified part of lung Pneumonia type: due to unspecified organism Qualified Code(s): J18.9 - Pneumonia, unspecified organism Code(s): J18.9 - Pneumonia, unspecified organism Status: Acute Assessment and Plan: Sputum cultures growing ESBL Klebsiella -continue azithromycin and imipenem for ESBL Klebsiella (4) Suspected COVID-19 virus infection: Code(s): Z20.822 - Contact with and (suspected) exposure to COVID-19 Status: Acute Assessment and Plan: Patient with hypoxia, acute respiratory failure, bilateral infiltrates -SARS-CoV-2 PCR negative -elevated D-dimer, elevated LDH -discontinue precautions (5) Acute on chronic diastolic (congestive) heart failure: Code(s): I50.33 - Acute on chronic diastolic (congestive) heart failure Status: Acute Assessment and Plan: Bilateral lower extremity edema, acute respiratory failure -echocardiogram 08/29/2020: EF of 60-65%, grade 1 diastolic dysfunction -08/28/2020 venous Dopplers bilateral upper and lower extremity negative for DVTs -continue basis (6) Electrolyte imbalance: Code(s): E87.8 - Other disorders of electrolyte and fluid balance, not elsewhere classified Status: Acute Assessment and Plan: Resolved (7) Altered mental status: Qualifiers: Altered mental status type: unspecified Qualified Code(s): R41.82 - Altered mental status, unspecified Code(s): R41.82 - Altered mental status, unspecified Status: Acute Assessment and Plan: Altered mental status could be related to hypoxia, pneumonia, severe sepsis -off sedation for greater than 24 hours, patient not opening her eyes or following commands, -08/29/[address] scan of brain did not show any acute intracranial abnormality, chronic age-related changes. -start ammonia level on 08/29/2020 was within normal limits -discussed with [facility], patient is at her baseline which she only opens her eyes and says yes and no to her name -PATIENT SEEMS TO BE AT BASELINE (8) Seizure: Code(s): R56.9 - Unspecified convulsions Status: Acute Assessment and Plan: Patient with history of seizures -continue Depakote -EEG 08/29/2020 with no evidence of status
[2020-09-01 11:39] LABS: Alveolar/Arterial O2 Gradient 76.3 mmHg; Base Excess ABG 11.5 mEq/l (+/-2.0); Fractional Inspired Oxygen 30 %; Oxygen Content ABG 12.9 %vol (16.0-22.0); Oxygen Saturation ABG 97.6 % (95.0-100.0); Oxyhemoglobin 95.4 % THb (90.0-100.0); PCO2 ABG 41.6 mmHg (35.0-45.0); PO2 ABG 88.7 mmHg (80.0-100.0); PO2 FiO2 Ratio Arterial Blood 2.96 %; Total Hemoglobin 9.5 g/dL (12.0-18.0)
[2020-09-01 11:40] LABS: Modified Allen's Test Pass; Site Drawn RIGHT RADIAL; pH ABG 7.543 (7.350-7.450)
[2020-09-01 11:41] LABS: Arterial Blood Gas Vent Mode SPONTANEOUS; Device VENTILATOR
[2020-09-01 11:42] LABS: Glucose Point of Care 125 mg/dl (65-105)
[2020-09-01 11:42] LABS: Arterial Blood Gas PEEP 5 cmH2O; Arterial Blood Gas Pressure Support 8 cmH2O
[2020-09-01] MEDS: amLODIPine BESYLATE 5 MG TABLET PO (11:44)
[2020-09-01] MEDS: racEPINEPHrine 2.25% NEBU SOLN 0.5 ML VIAL.NEB ×2 (14:07)
[2020-09-01] MEDS: RAPID SEQUENCE INTUBATION KIT 1 EACH (14:45)
--- NOTE | 2020-09-01 15:32 | WPDPROCEDUR ---
Procedures Intubation Intubation Date: 09/01/20 Intubation Time: 14:15 A pre-procedural Time-Out was completed immediately before starting the procedure and confirmed: Patient Identification, Site, Procedure, Patient Position and the Availability of Requisite Equipment: Yes Sedative: etomidate Mg given: 20 Laryngoscope: fiber optic video scope Assist device used: fiber optic device ET tube size: 7.5 Tube secured depth (cm): 21 Tube secured location: lips Tube placement confirmation: visualized tube passing through cords, equal breath sounds bilaterally, no breath sounds over epigastrium and confirmation by capnometry Patient tolerated procedure: well Intubation complications: none Additional comments: Swelling noted around the vocal cords
--- NOTE | 2020-09-01 16:57 | PC.NURSE ---
pt extubated by rt at150 pm per Chadd Patrick, went quickly from a nasal canula to a 100% nonrebreather to a bi-pap machine having several breathing treatments , then by 1429, Dr. Florentino re-intubated, same size tube, same depth, x-ray verified position
[2020-09-01 17:43] LABS: Glucose Point of Care 103 mg/dl (65-105)
[2020-09-01 23:45] LABS: Glucose Point of Care 110 mg/dl (65-105)
[2020-09-02] VITALS (28 sets, daily range): BP systolic 108–139; BP diastolic 45–70; PULSE 87–108; RESP 14–28; TEMP 36.6–37.2; O2SAT 97–100
[2020-09-02] MEDS: ALBUTEROL SULFATE NEB 2.5 MG/0.5 ML INH INHALATION ×4 (02:22→20:11)
[2020-09-02] MEDS: IPRATROPIUM BR 0.02% INH SOLN 0.5 MG/2.5 ML VIAL INHALATION ×4 (02:22→20:11)
[2020-09-02] MEDS: VALPROIC ACID LIQ 250 MG/5 ML ORAL SOLUTION UDC 500 MG FEED TUBE ×3 (04:24→17:13)
[2020-09-02 04:27] LABS: Alveolar/Arterial O2 Gradient 264.5 mmHg; Base Excess ABG 10.5 mEq/l (+/-2.0); Carboxyhemoglobin 0.3 % THb (0-2.0); Fractional Inspired Oxygen 80 %; HCO3 ABG 33.4 mEq/l (22.0-26.0); Methemoglobin ABG 0.6 %THb (0-1.5); Oxygen Content ABG 12.8 %vol (16.0-22.0); Oxygen Saturation ABG 99.7 % (95.0-100.0); Oxyhemoglobin 98.1 % THb (90.0-100.0); PCO2 ABG 37.5 mmHg (35.0-45.0); PO2 ABG 266.5 mmHg (80.0-100.0); PO2 FiO2 Ratio Arterial Blood 3.33 %; Total Hemoglobin 8.8 g/dL (12.0-18.0)
[2020-09-02 04:29] LABS: Device VENTILATOR; Modified Allen's Test Pass; Site Drawn RIGHT RADIAL; pH ABG 7.567 (7.350-7.450)
[2020-09-02 04:30] LABS: Arterial Blood Gas PEEP 8 cmH2O; Arterial Blood Gas Tidal Volume 400 ml; Arterial Blood Gas Vent Mode CMV; Arterial Blood Gas Ventilator rate 14 /MIN
[2020-09-02] MEDS: CENTRAL LINE FLUSH 10 ML IV PUSH ×3 (05:34→20:03)
[2020-09-02] MEDS: LEVOTHYROXINE SODIUM 50 MCG TABLET FEED TUBE (05:34)
[2020-09-02 05:53] LABS: Hemoglobin 7.8 g/dL (12.0-15.0); Mean Corpuscular HGB Conc 31.2 g/dl (32-36); Mean Corpuscular Hemoglobin 30.8 pg (26-34); Mean Corpuscular Volume 98.8 fl (80-100); Mean Platelet Volume 9.3 fl (7.4-10.4); Platelet Count Result 473 k/mm3 (150-375); Red Blood Count 2.53 M/mm3 (4.2-5.4); Red Cell Distribution Width 16.4 % (11.5-14.5); White Blood Count 10.6 K/mm3 (4.5-10.0)
[2020-09-02 06:02] LABS: Glucose Point of Care 134 mg/dl (65-105)
[2020-09-02 06:05] LABS: Anion Gap 5 mmol/L (8-16); Blood Urea Nitrogen 13 mg/dL (7-17); Calcium 8.2 mg/dL (8.4-10.2); Carbon Dioxide 34 mmol/L (22-30); Chloride 94 mmol/L (98-107); Estimated CRCL calculation 96 ml/min; Estimated Glomerular Filt Rate > 60; Glucose 154 mg/dL (65-105); Magnesium 2.2 mg/dL (1.6-2.3); Phosphorus 3.4 mg/dL (2.5-4.5); Potassium 3.8 mmol/L (3.4-5.0); Sodium 133 mmol/L (137-145)
[2020-09-02] MEDS: busPIRone HCL 10 MG TABLET FEED TUBE ×3 (08:28→17:12)
[2020-09-02] MEDS: MEMANTINE 10 MG TABLET FEED TUBE ×2 (08:28→17:12)
[2020-09-02] MEDS: PANTOPRAZOLE SODIUM IV 40 MG VIAL IV PUSH ×2 (08:30→20:03)
[2020-09-02] MEDS: ENOXAPARIN 40 MG/0.4 ML SYRINGE SUB-Q (08:30)
[2020-09-02] MEDS: INSULIN GLARGINE (*BKC) 100 UNITS/ML 10 UNITS SUB-Q (08:30)
[2020-09-02] MEDS: amLODIPine BESYLATE 5 MG TABLET PO (08:31)
[2020-09-02] MEDS: QUEtiapine FUMARATE 100 MG TABLET 200 MG FEED TUBE ×2 (08:32→20:03)
[2020-09-02] MEDS: DONEPEZIL HCL 10 MG TABLET FEED TUBE (08:33)
[2020-09-02] MEDS: ESCITALOPRAM OXALATE 10 MG TABLET FEED TUBE (08:33)
[2020-09-02] MEDS: MINERAL OIL/WHITE PETROLATUM OINTMENT 1 APPLIC EACH EYE ×2 (08:33→20:03)
--- NOTE | 2020-09-02 09:09 | PM.IMPN ---
Progress Note: A&P Assessment and Plan (1) Encephalopathy: Code(s): G93.40 - Encephalopathy, unspecified Status: Acute Assessment and Plan: Patient remains awake 09/02. Possibly related to recent sedatives and/or from her home medication regiment. Doubt sepsis. CT brain showing no acute findings. EEG showing an abnormal record during drowsiness and sleep but no evidence of status epilepticus or any focal seizures. Primaxin may interact with VPA by decreasing absorption and/or increasing excretion thus lowering the systemic levels. No seizures. (2) Acute respiratory failure with hypoxia: Code(s): J96.01 - Acute respiratory failure with hypoxia Status: Acute Assessment and Plan: The patient is intubated but off sedation. Respiratory failure secondary to pneumonia. Hypoxia has improved. COVID testing negative. Wean ventilator as tolerated. Extubation 09/01 failed. Continue diuresis. (3) Severe sepsis: Code(s): A41.9 - Sepsis, unspecified organism; R65.20 - Severe sepsis without septic shock Status: Acute Assessment and Plan: Patient with severe sepsis as seen with the acute respiratory failure, Lactic acid 3.1. One of 2 blood culture bottles growing Coag Negative Staph sensitive to Vanco. The 2nd bottle remains negative. Repeat BCx also negative to date. Suspect Coag negative Staph is a contaminant and thus Vanco stopped. Adjust IV antibiotics for ESBL Kleb PNA. (4) Bilateral pneumonia: Qualifiers: Lung location: unspecified part of lung Pneumonia type: due to unspecified organism Qualified Code(s): J18.9 - Pneumonia, unspecified organism Code(s): J18.9 - Pneumonia, unspecified organism Status: Acute Assessment and Plan: Patient recently hospitalized for pneumonia. Discharged on August 09 with 5 more days of cefdinir. She returns with respiratory failure and low-grade fever but normal white count. CTA showing no pulmonary emboli but does show improvement in the bilateral lower lobe atelectasis/consolidation. As per antibiotic stewardship, she was started on azithromycin and Rocephin. Vancomycin added for severity, then stopped. Sputum cx growing ESBL Klebsiella with Blood cultures positive as above. Primaxin begun 6/25 PM. Day 2. (5) Anemia: Code(s): D64.9 - Anemia, unspecified Status: Acute Assessment and Plan: Hgb normally runs 9-11 range past few months. Hgb 9.0 on admission and dropped to 6.9 on 08/28 and she received 1U PRBC. No signs of acute blood loss. Iron <10 with TIBC 118 and sat<8%. Was iron deficient in April. No EGD/[place] listed here. Hgb back up to 8 and stable. 09/02 7.8 Continue to follow. (6) Acute on chronic diastolic (congestive) heart failure: Code(s): I50.33 - Acute on chronic diastolic (congestive) heart failure Status: Acute Assessment and Plan: The patient has minimal bilateral pleural effusions. BNP 760. Echo here with EF 60-65%, Grade I diastolic dysfunction and small pericardial effusion. No DVT in the UE or LE. Does appear clinically to be mildly fluid overloaded. Tolerating furosemide diuresis. (7) Seizure: Code(s): R56.9 - Unspecified convulsions Status: Acute Assessment and Plan: Patient has a history of seizures currently on Depakote. This has been continued. Ativan available as needed for signs of symptoms of seizures. Patient was having tremors but not consistent with seizure activity. EEG as mentioned above. (8) Hypothyroidism: Code(s): E03.9 - Hypothyroidism, unspecified Status: Chronic Assessment and Plan: TSH last month was 4.9. Continue levothyroxine. (9) Alzheimer's dementia: Code(s): G30.9 - Alzheimer's disease, unspecified; F02.80 - Dementia in other diseases classified elsewhere without behavioral disturbance Status: Chronic Assessment and Plan: Riddhi
[2020-09-02] MEDS: FUROSEMIDE INJ 40 MG/4 ML VIAL IV PUSH ×2 (09:18→20:03)
[2020-09-02 12:05] LABS: Glucose Point of Care 142 mg/dl (65-105)
--- NOTE | 2020-09-02 13:47 | WPDINTPN ---
Progress Note: A&P Assessment and Plan (1) Anemia: Code(s): D64.9 - Anemia, unspecified Status: Acute Assessment and Plan: Patient dropped her hemoglobin to 6.9 on 08/28/2021, received 1 unit of packed RBCs. -hemoglobin 8.0 this morning and remained stable - stool for Hemoccult -NEGATIVE on 08/29/2020 -iron panel reflective of anemia of chronic disease, vitamin B12 and folic acid within normal limits -LDH normal, -haptoglobin elevated -continue PPI IV Q12H -continue to monitor H/H -may require GI consult if blood counts continue to drop (2) Acute respiratory failure with hypoxia: Code(s): J96.01 - Acute respiratory failure with hypoxia Status: Acute Assessment and Plan: Acute respiratory failure likely related to pneumonia, heart failure/volume overload -patient intubated on 08/26/2020 after [facility] with severe hypoxia - patient was extubated on 09/01/2020 after being on pressure support ventilation 8/5 for greater than 24 hours. Post extubation she developed stridor was given racemic epinephrine but continued to be hypoxic, tachypneic in the 40s and 50s. Discussed with daughter who requested that I reintubate the patient until she gets back in town. - Patient on CMV mode, will decrease tidal volume and wean FiO2 as tolerated - sputum cultures growing ESBL Klebsiella. continue imipenem -discussed with [facility], patient's baseline is that she opens her eyes, says yes and no to her name. that's about it. (3) Bilateral pneumonia: Qualifiers: Lung location: unspecified part of lung Pneumonia type: due to unspecified organism Qualified Code(s): J18.9 - Pneumonia, unspecified organism Code(s): J18.9 - Pneumonia, unspecified organism Status: Acute Assessment and Plan: Sputum cultures growing ESBL Klebsiella -continue imipenem for ESBL Klebsiella (4) Suspected COVID-19 virus infection: Code(s): Z20.822 - Contact with and (suspected) exposure to COVID-19 Status: Acute Assessment and Plan: Patient with hypoxia, acute respiratory failure, bilateral infiltrates -SARS-CoV-2 PCR negative -elevated D-dimer, elevated LDH -discontinue precautions (5) Acute on chronic diastolic (congestive) heart failure: Code(s): I50.33 - Acute on chronic diastolic (congestive) heart failure Status: Acute Assessment and Plan: Bilateral lower extremity edema, acute respiratory failure -echocardiogram 08/29/2020: EF of 60-65%, grade 1 diastolic dysfunction -08/28/2020 venous Dopplers bilateral upper and lower extremity negative for DVTs (6) Electrolyte imbalance: Code(s): E87.8 - Other disorders of electrolyte and fluid balance, not elsewhere classified Status: Acute Assessment and Plan: Resolved (7) Altered mental status: Qualifiers: Altered mental status type: unspecified Qualified Code(s): R41.82 - Altered mental status, unspecified Code(s): R41.82 - Altered mental status, unspecified Status: Acute Assessment and Plan: Altered mental status could be related to hypoxia, pneumonia, severe sepsis -off sedation for greater than 24 hours, patient not opening her eyes or following commands, -08/29/[address] scan of brain did not show any acute intracranial abnormality, chronic age-related changes. -start ammonia level on 08/29/2020 was within normal limits -discussed with [facility], patient is at her baseline which she only opens her eyes and says yes and no to her name -PATIENT SEEMS TO BE AT BASELINE (8) Seizure: Code(s): R56.9 - Unspecified convulsions Status: Acute Assessment and Plan: Patient with history of seizures -continue Depakote -EEG 08/29/2020 with no evidence of status epilepticus or focal seizures. (9) Severe sepsis: Code(s): A41.9 - Sepsis, unspecified organism; R65.20 - Severe sepsis without septic shock Stat
[2020-09-02 17:21] LABS: Glucose Point of Care 134 mg/dl (65-105)
[2020-09-02 23:46] LABS: Glucose Point of Care 143 mg/dl (65-105)
[2020-09-03] VITALS (28 sets, daily range): BP systolic 104–145; BP diastolic 44–89; PULSE 85–100; RESP 12–23; TEMP 36.6–37.1; O2SAT 96–100
[2020-09-03] MEDS: VALPROIC ACID LIQ 250 MG/5 ML ORAL SOLUTION UDC 500 MG FEED TUBE ×3 (01:11→17:47)
[2020-09-03] MEDS: ALBUTEROL SULFATE NEB 2.5 MG/0.5 ML INH INHALATION ×4 (01:25→19:50)
[2020-09-03] MEDS: IPRATROPIUM BR 0.02% INH SOLN 0.5 MG/2.5 ML VIAL INHALATION ×4 (01:26→19:50)
[2020-09-03 03:49] LABS: Hematocrit 25.4 % (37.0-47.0); Mean Corpuscular HGB Conc 31.5 g/dl (32-36); Mean Corpuscular Volume 98.4 fl (80-100); Platelet Count Result 501 k/mm3 (150-375); Red Blood Count 2.58 M/mm3 (4.2-5.4); Red Cell Distribution Width 16.5 % (11.5-14.5); White Blood Count 9.9 K/mm3 (4.5-10.0)
[2020-09-03 04:06] LABS: Anion Gap 3 mmol/L (8-16); Blood Urea Nitrogen 16 mg/dL (7-17); Calcium 8.4 mg/dL (8.4-10.2); Carbon Dioxide 39 mmol/L (22-30); Chloride 92 mmol/L (98-107); Estimated CRCL calculation 82 ml/min; Estimated Glomerular Filt Rate > 60; Glucose 130 mg/dL (65-105); Magnesium 2.2 mg/dL (1.6-2.3); Potassium 3.8 mmol/L (3.4-5.0); Sodium 134 mmol/L (137-145)
[2020-09-03 04:13] LABS: Alveolar/Arterial O2 Gradient 55.7 mmHg; Base Excess ABG 13.5 mEq/l (+/-2.0); Carboxyhemoglobin 0.3 % THb (0-2.0); Fractional Inspired Oxygen 30 %; HCO3 ABG 36.3 mEq/l (22.0-26.0); Methemoglobin ABG 0.4 %THb (0-1.5); Modified Allen's Test Pass; Oxygen Content ABG 13.2 %vol (16.0-22.0); Oxygen Saturation ABG 98.7 % (95.0-100.0); Oxyhemoglobin 97.1 % THb (90.0-100.0); PCO2 ABG 38.5 mmHg (35.0-45.0); PO2 FiO2 Ratio Arterial Blood 3.77 %; Reduced Hemoglobin 2.2 %THb (0-5.0); Site Drawn LEFT RADIAL; Total Hemoglobin 9.5 g/dL (12.0-18.0); pH ABG 7.592 (7.350-7.450)
[2020-09-03 04:14] LABS: Arterial Blood Gas PEEP 8 cmH2O; Arterial Blood Gas Tidal Volume 330 ml; Arterial Blood Gas Vent Mode CMV; Arterial Blood Gas Ventilator rate 14 /MIN; Device VENTILATOR
[2020-09-03] MEDS: CENTRAL LINE FLUSH 10 ML IV PUSH ×3 (05:30→22:23)
[2020-09-03] MEDS: LEVOTHYROXINE SODIUM 50 MCG TABLET FEED TUBE (05:31)
[2020-09-03 06:39] LABS: Glucose Point of Care 132 mg/dl (65-105)
[2020-09-03] MEDS: ENOXAPARIN 40 MG/0.4 ML SYRINGE SUB-Q (08:09)
[2020-09-03] MEDS: PANTOPRAZOLE SODIUM IV 40 MG VIAL IV PUSH ×2 (08:09→20:26)
[2020-09-03] MEDS: MINERAL OIL/WHITE PETROLATUM OINTMENT 1 APPLIC EACH EYE ×2 (08:10→20:27)
[2020-09-03] MEDS: MEMANTINE 10 MG TABLET FEED TUBE ×2 (08:10→17:41)
[2020-09-03] MEDS: busPIRone HCL 10 MG TABLET FEED TUBE ×3 (08:10→17:42)
[2020-09-03] MEDS: DONEPEZIL HCL 10 MG TABLET FEED TUBE (08:10)
[2020-09-03] MEDS: amLODIPine BESYLATE 5 MG TABLET PO (08:10)
[2020-09-03] MEDS: ESCITALOPRAM OXALATE 10 MG TABLET FEED TUBE (08:10)
[2020-09-03] MEDS: QUEtiapine FUMARATE 100 MG TABLET 200 MG FEED TUBE ×2 (08:10→20:26)
[2020-09-03] MEDS: INSULIN GLARGINE (*BKC) 100 UNITS/ML 10 UNITS SUB-Q (08:10)
[2020-09-03] MEDS: FUROSEMIDE INJ 40 MG/4 ML VIAL IV PUSH ×2 (08:17→20:00)
--- NOTE | 2020-09-03 08:34 | PM.IMPN ---
Progress Note: A&P Assessment and Plan (1) Encephalopathy: Code(s): G93.40 - Encephalopathy, unspecified Status: Acute Assessment and Plan: Patient remains off sedation. Encephalopathy is persistent possibly related to recent sedatives and/or from her home medication regiment and/or sepsis complicated by her advanced dementia. CT brain showing no acute findings. EEG showing an abnormal record during drowsiness and sleep but no evidence of status epilepticus or any focal seizures. Primaxin may interact with VPA by decreasing absorption and/or increasing excretion thus lowering the systemic levels. Monitor closely. No seizures. (2) Acute respiratory failure with hypoxia: Code(s): J96.01 - Acute respiratory failure with hypoxia Status: Acute Assessment and Plan: The patient is intubated but off sedation. Respiratory failure secondary to ESBL Kleb pneumonia; probably why she failed first round of treatment. Hypoxia has improved. COVID testing negative. Wean ventilator as tolerated. Extubation 09/01 failed. Continue diuresis. (3) Severe sepsis: Code(s): A41.9 - Sepsis, unspecified organism; R65.20 - Severe sepsis without septic shock Status: Acute Assessment and Plan: Patient with severe sepsis as seen with the acute respiratory failure, Lactic acid 3.1. One of 2 blood culture bottles growing Coag Negative Staph sensitive to Vanco. The 2nd bottle negative. Repeat BCx also negative to date. Suspect Coag negative Staph is a contaminant and thus Vanco stopped. Adjust IV antibiotics for ESBL Kleb PNA. (4) Bilateral pneumonia: Qualifiers: Lung location: unspecified part of lung Pneumonia type: due to unspecified organism Qualified Code(s): J18.9 - Pneumonia, unspecified organism Code(s): J18.9 - Pneumonia, unspecified organism Status: Acute Assessment and Plan: Patient recently hospitalized for pneumonia. Discharged on August 09 with 5 more days of cefdinir. She returns with respiratory failure and low-grade fever but normal white count. CTA showing no pulmonary emboli but does show improvement in the bilateral lower lobe atelectasis/consolidation. As per antibiotic stewardship, she was started on azithromycin and Rocephin. Vancomycin added for severity, then stopped. Sputum cx growing ESBL Klebsiella with Blood cultures positive as above. Primaxin begun 08/31 PM. (5) Anemia: Code(s): D64.9 - Anemia, unspecified Status: Acute Assessment and Plan: Hgb normally runs 9-11 range past few months. Hgb 9.0 on admission and dropped to 6.9 on 08/28 and she received 1U PRBC. No signs of acute blood loss. Iron <10 with TIBC 118 and sat<8%. Was iron deficient in April. No EGD/[place] listed here. Hgb back up to 8 and stable. Continue to follow. (6) Acute on chronic diastolic (congestive) heart failure: Code(s): I50.33 - Acute on chronic diastolic (congestive) heart failure Status: Acute Assessment and Plan: The patient has minimal pleural effusions. BNP 760. Echo here with EF 60-65%, Grade I diastolic dysfunction and small pericardial effusion. No DVT in the UE or LE. Does appear clinically to be mildly fluid overloaded. Tolerating intermittent furosemide doses. (7) Seizure: Code(s): R56.9 - Unspecified convulsions Status: Acute Assessment and Plan: Patient has a history of seizures currently on Depakote. This has been continued. Ativan available as needed for signs of symptoms of seizures. Patient was having tremors but not consistent with seizure activity. EEG as mentioned above. (8) Hypothyroidism: Code(s): E03.9 - Hypothyroidism, unspecified Status: Chronic Assessment and Plan: TSH last month was 4.9. Continue levothyroxine. (9) Alzheimer's dementia: Code(s): G30.9 - Alzheimer's disease, unspecified; F02.80 - Dementia in
--- NOTE | 2020-09-03 09:45 | WPDINTPN ---
Progress Note: A&P Assessment and Plan (1) Anemia: Code(s): D64.9 - Anemia, unspecified Status: Acute Assessment and Plan: Patient dropped her hemoglobin to 6.9 on 08/28/2021, received 1 unit of packed RBCs. -hemoglobin 8.0 this morning and remained stable - stool for Hemoccult -NEGATIVE on 08/29/2020 -iron panel reflective of anemia of chronic disease, vitamin B12 and folic acid within normal limits -LDH normal, -haptoglobin elevated -continue PPI IV Q12H -continue to monitor H/H -may require GI consult if blood counts continue to drop (2) Acute respiratory failure with hypoxia: Code(s): J96.01 - Acute respiratory failure with hypoxia Status: Acute Assessment and Plan: Acute respiratory failure likely related to pneumonia, heart failure/volume overload -patient intubated on 08/26/2020 after arriving from the [facility] with severe hypoxia - patient was extubated on 09/01/2020 after being on pressure support ventilation 8/5 for greater than 24 hours. Post extubation she developed stridor was given racemic epinephrine but continued to be hypoxic, tachypneic in the 40s and 50s. Discussed with daughter who requested that I reintubate the patient until she gets back in town. - Patient on CMV mode, 30% FiO2 and peep of 5, will switch to ASV mode, peep of 5 - sputum cultures growing ESBL Klebsiella. continue imipenem -discussed with [facility], patient's baseline is that she opens her eyes, says yes and no to her name. that's about it. (3) Bilateral pneumonia: Qualifiers: Lung location: unspecified part of lung Pneumonia type: due to unspecified organism Qualified Code(s): J18.9 - Pneumonia, unspecified organism Code(s): J18.9 - Pneumonia, unspecified organism Status: Acute Assessment and Plan: Sputum cultures growing ESBL Klebsiella -continue imipenem for ESBL Klebsiella (4) Suspected COVID-19 virus infection: Code(s): Z20.822 - Contact with and (suspected) exposure to COVID-19 Status: Acute Assessment and Plan: Patient with hypoxia, acute respiratory failure, bilateral infiltrates -SARS-CoV-2 PCR negative -elevated D-dimer, elevated LDH -discontinue precautions (5) Acute on chronic diastolic (congestive) heart failure: Code(s): I50.33 - Acute on chronic diastolic (congestive) heart failure Status: Acute Assessment and Plan: Bilateral lower extremity edema, acute respiratory failure -echocardiogram 08/29/2020: EF of 60-65%, grade 1 diastolic dysfunction -08/28/2020 venous Dopplers bilateral upper and lower extremity negative for DVTs (6) Electrolyte imbalance: Code(s): E87.8 - Other disorders of electrolyte and fluid balance, not elsewhere classified Status: Acute Assessment and Plan: Resolved (7) Altered mental status: Qualifiers: Altered mental status type: unspecified Qualified Code(s): R41.82 - Altered mental status, unspecified Code(s): R41.82 - Altered mental status, unspecified Status: Acute Assessment and Plan: Altered mental status could be related to hypoxia, pneumonia, severe sepsis -off sedation for greater than 24 hours, patient not opening her eyes or following commands, -08/29/[address] scan of brain did not show any acute intracranial abnormality, chronic age-related changes. -start ammonia level on 08/29/2020 was within normal limits -discussed with skilled nursing, patient is at her baseline which she only opens her eyes and says yes and no to her name -PATIENT SEEMS TO BE AT BASELINE (8) Seizure: Code(s): R56.9 - Unspecified convulsions Status: Acute Assessment and Plan: Patient with history of seizures -continue Depakote -EEG 08/29/2020 with no evidence of status epilepticus or focal seizures. (9) Severe sepsis: Code(s): A41.9 - Sepsis, unspecified organism; R65.20 - Severe sepsis without septic shock
--- NOTE | 2020-09-03 11:00 | PCDIET ---
ICU Rounding Note: Patient extubated, then reintubated. Glucerna 1.2 resumed and tolerated well at 55mL/hr goal rate. Continues on 30mL water flush every 4 hours. Residuals 100mL and below. Last recorded weight is 71.9kg which is decreased from last review. -I/O. Bowel Motility: Last documented BM on 09/02/20 x 1. Labs Reviewed: RBC (2.58), Hgb (8.0), Hct (25.4), Glu (130), Cr (0.6), Na (134) Meds Noted: Albuterol, Norvasc, Lantus, Atrovent, Aricept, Lasix, Primaxin, Synthroid, Namenda, Protonix, Lasix Additional Notes: Unstageable ulcers to left heel and foot. Following daily in ICU rounds. Assessing/reassessing every Thursday/Thursday.
[2020-09-03] MEDS: DEXAMETHASONE SOD PHOS INJ 4 MG/ML VIAL IV PUSH ×3 (11:44→23:09)
[2020-09-03 12:00] LABS: Glucose Point of Care 152 mg/dl (65-105)
[2020-09-03 17:57] LABS: Glucose Point of Care 187 mg/dl (65-105)
[2020-09-04] VITALS (27 sets, daily range): BP systolic 114–168; BP diastolic 48–78; PULSE 75–103; RESP 9–22; TEMP 36.2–36.9; O2SAT 95–98
[2020-09-04] LABS: Glucose Point of Care 212 mg/dl (65-105)
[2020-09-04] MEDS: IPRATROPIUM BR 0.02% INH SOLN 0.5 MG/2.5 ML VIAL INHALATION ×4 (02:30→20:28)
[2020-09-04] MEDS: ALBUTEROL SULFATE NEB 2.5 MG/0.5 ML INH INHALATION ×4 (02:30→20:28)
[2020-09-04] MEDS: VALPROIC ACID LIQ 250 MG/5 ML ORAL SOLUTION UDC 500 MG FEED TUBE ×3 (02:49→17:27)
[2020-09-04] MEDS: DEXAMETHASONE SOD PHOS INJ 4 MG/ML VIAL IV PUSH (05:25)
[2020-09-04] MEDS: INSULIN ASPART (*BKC) 100 UNITS/ML SUB-Q ×3 (05:26→12:31)
[2020-09-04] MEDS: CENTRAL LINE FLUSH 10 ML IV PUSH ×3 (05:26→21:15)
[2020-09-04] MEDS: LEVOTHYROXINE SODIUM 50 MCG TABLET FEED TUBE (05:31)
[2020-09-04 05:38] LABS: Alveolar/Arterial O2 Gradient 77.4 mmHg; Base Excess ABG 12.5 mEq/l (+/-2.0); Carboxyhemoglobin 0.3 % THb (0-2.0); Fractional Inspired Oxygen 30 %; HCO3 ABG 35.8 mEq/l (22.0-26.0); Methemoglobin ABG 0.4 %THb (0-1.5); Oxygen Content ABG 14.9 %vol (16.0-22.0); Oxygen Saturation ABG 97.7 % (95.0-100.0); Oxyhemoglobin 95.9 % THb (90.0-100.0); PCO2 ABG 40.6 mmHg (35.0-45.0); PO2 ABG 88.8 mmHg (80.0-100.0); PO2 FiO2 Ratio Arterial Blood 2.96 %; Reduced Hemoglobin 3.4 %THb (0-5.0)
[2020-09-04 05:40] LABS: Device VENTILATOR; Modified Allen's Test Unable to perform; Site Drawn RIGHT RADIAL; pH ABG 7.563 (7.350-7.450)
[2020-09-04 05:41] LABS: Arterial Blood Gas Minute Volume 5 LPM; Arterial Blood Gas PEEP 5 cmH2O; Arterial Blood Gas Vent Mode ASV
[2020-09-04 05:43] LABS: Glucose Point of Care 225 mg/dl (65-105)
[2020-09-04 05:50] LABS: Hematocrit 25.3 % (37.0-47.0); Hemoglobin 8.2 g/dL (12.0-15.0); Mean Corpuscular HGB Conc 32.4 g/dl (32-36); Mean Corpuscular Hemoglobin 30.7 pg (26-34); Mean Corpuscular Volume 94.8 fl (80-100); Mean Platelet Volume 9.4 fl (7.4-10.4); Platelet Count Result 554 k/mm3 (150-375); Red Blood Count 2.67 M/mm3 (4.2-5.4); Red Cell Distribution Width 15.8 % (11.5-14.5); White Blood Count 12.3 K/mm3 (4.5-10.0)
[2020-09-04 05:59] LABS: Anion Gap 8 mmol/L (8-16); Blood Urea Nitrogen 21 mg/dL (7-17); Calcium 8.5 mg/dL (8.4-10.2); Carbon Dioxide 35 mmol/L (22-30); Chloride 91 mmol/L (98-107); Estimated CRCL calculation 81 ml/min; Estimated Glomerular Filt Rate > 60; Glucose 247 mg/dL (65-105); Magnesium 2.4 mg/dL (1.6-2.3); Phosphorus 3.5 mg/dL (2.5-4.5); Potassium 3.6 mmol/L (3.4-5.0); Sodium 134 mmol/L (137-145)
[2020-09-04] MEDS: ESCITALOPRAM OXALATE 10 MG TABLET FEED TUBE (08:21)
[2020-09-04] MEDS: amLODIPine BESYLATE 5 MG TABLET PO (08:21)
[2020-09-04] MEDS: MEMANTINE 10 MG TABLET FEED TUBE ×2 (08:21→17:27)
[2020-09-04] MEDS: ENOXAPARIN 40 MG/0.4 ML SYRINGE SUB-Q (08:22)
[2020-09-04] MEDS: PANTOPRAZOLE SODIUM IV 40 MG VIAL IV PUSH ×2 (08:22→20:14)
[2020-09-04] MEDS: MINERAL OIL/WHITE PETROLATUM OINTMENT 1 APPLIC EACH EYE ×2 (08:22→20:14)
[2020-09-04] MEDS: DONEPEZIL HCL 10 MG TABLET FEED TUBE (08:22)
[2020-09-04] MEDS: INSULIN GLARGINE (*BKC) 100 UNITS/ML 10 UNITS SUB-Q (08:26)
--- NOTE | 2020-09-04 08:53 | WPDINTPN ---
Progress Note: A&P Assessment and Plan (1) Acute respiratory failure with hypoxia: Code(s): J96.01 - Acute respiratory failure with hypoxia Status: Acute Assessment and Plan: Acute respiratory failure likely related to pneumonia, heart failure/volume overload -patient intubated on 08/26/2020 after arriving from the long term with severe hypoxia - patient was extubated on 09/01/2020 after being on pressure support ventilation 8/5 for greater than 24 hours. Post extubation she developed stridor was given racemic epinephrine but continued to be hypoxic, tachypneic in the 40s and 50s. Discussed with daughter who requested that I reintubate the patient until she gets back in town. currently in ASV mode. change minute ventilation to 75% - Chest x-ray and ABG reviewed - sputum cultures growing ESBL Klebsiella. continue imipenem -discussed with Mcfp, patient's baseline is that she opens her eyes, says yes and no to her name. (2) Anemia: Code(s): D64.9 - Anemia, unspecified Status: Acute Assessment and Plan: Patient dropped her hemoglobin to 6.9 on 08/28/2021, received 1 unit of packed RBCs. -hemoglobin remains stable - stool for Hemoccult - NEGATIVE on 08/29/2020 -iron panel reflective of anemia of chronic disease, vitamin B12 and folic acid within normal limits -LDH normal, -haptoglobin elevated -continue PPI IV Q12H -continue to monitor H/H (3) Bilateral pneumonia: Qualifiers: Lung location: unspecified part of lung Pneumonia type: due to unspecified organism Qualified Code(s): J18.9 - Pneumonia, unspecified organism Code(s): J18.9 - Pneumonia, unspecified organism Status: Acute Assessment and Plan: Sputum cultures growing ESBL Klebsiella -continue imipenem for ESBL Klebsiella (4) Suspected COVID-19 virus infection: Code(s): Z20.822 - Contact with and (suspected) exposure to COVID-19 Status: Acute Assessment and Plan: Patient with hypoxia, acute respiratory failure, bilateral infiltrates -SARS-CoV-2 PCR negative -elevated D-dimer, elevated LDH -discontinue precautions (5) Acute on chronic diastolic (congestive) heart failure: Code(s): I50.33 - Acute on chronic diastolic (congestive) heart failure Status: Acute Assessment and Plan: Bilateral lower extremity edema, acute respiratory failure -echocardiogram 08/29/2020: EF of 60-65%, grade 1 diastolic dysfunction -08/28/2020 venous Dopplers bilateral upper and lower extremity negative for DVTs (6) Electrolyte imbalance: Code(s): E87.8 - Other disorders of electrolyte and fluid balance, not elsewhere classified Status: Acute Assessment and Plan: Resolved (7) Altered mental status: Qualifiers: Altered mental status type: unspecified Qualified Code(s): R41.82 - Altered mental status, unspecified Code(s): R41.82 - Altered mental status, unspecified Status: Acute Assessment and Plan: Altered mental status could be related to hypoxia, pneumonia, severe sepsis. patient has baseline severe dementia and poor mental status -off sedation many days now, patient not opening her eyes or following commands, -08/29/[address] scan of brain did not show any acute intracranial abnormality, chronic age-related changes. -start ammonia level on 08/29/2020 was within normal limits -discussed with long term, patient is at her baseline which she only opens her eyes and says yes and no to her name -PATIENT SEEMS TO BE AT BASELINE - will discontinue p.r.n. Ativan. also hold Seroquel and BuSpar for 24 hours (8) Seizure: Code(s): R56.9 - Unspecified convulsions Status: Acute Assessment and Plan: Patient with history of seizures -continue Depakote -EEG 08/29/2020 with no evidence of status epilepticus or focal seizures. (9) Severe sepsis: Code(s): A41.9 - Sepsis, unspecified organism; R65.20 -
--- NOTE | 2020-09-04 09:09 | PM.IMPN ---
Progress Note: A&P Assessment and Plan (1) Encephalopathy: Code(s): G93.40 - Encephalopathy, unspecified Status: Acute Assessment and Plan: Patient remains off sedation. Encephalopathy is persistent possibly related to recent sedatives and/or from her home medication regiment and/or sepsis complicated by her advanced dementia. CT brain showing no acute findings. EEG showing an abnormal record during drowsiness and sleep but no evidence of status epilepticus or any focal seizures. Primaxin may interact with VPA by decreasing absorption and/or increasing excretion thus lowering the systemic levels. Monitor closely. No seizures noted. (2) Acute respiratory failure with hypoxia: Code(s): J96.01 - Acute respiratory failure with hypoxia Status: Acute Assessment and Plan: The patient is intubated but off sedation. Respiratory failure secondary to ESBL Kleb pneumonia; probably why she failed first round of treatment. Hypoxia has improved. COVID testing negative. Wean ventilator as tolerated. Extubation 09/01 failed. (3) Severe sepsis: Code(s): A41.9 - Sepsis, unspecified organism; R65.20 - Severe sepsis without septic shock Status: Acute Assessment and Plan: Patient with severe sepsis as seen with the acute respiratory failure, Lactic acid 3.1. One of 2 blood culture bottles growing Coag Negative Staph sensitive to Vanco. The 2nd bottle negative. Repeat BCx also negative to date. Suspect Coag negative Staph is a contaminant and thus Vanco stopped. Continue IV antibiotics for ESBL Kleb PNA. (4) Bilateral pneumonia: Qualifiers: Lung location: unspecified part of lung Pneumonia type: due to unspecified organism Qualified Code(s): J18.9 - Pneumonia, unspecified organism Code(s): J18.9 - Pneumonia, unspecified organism Status: Acute Assessment and Plan: Patient recently hospitalized for pneumonia. Discharged on August 09 with 5 more days of cefdinir. She returns with respiratory failure and low-grade fever but normal white count. CTA showing no pulmonary emboli but does show improvement in the bilateral lower lobe atelectasis/consolidation. As per antibiotic stewardship, she was started on azithromycin and Rocephin. Vancomycin added for severity, then stopped. Sputum cx growing ESBL Klebsiella with Blood cultures positive as above. Primaxin begun 6 PM. (5) Anemia: Code(s): D64.9 - Anemia, unspecified Status: Acute Assessment and Plan: Hgb normally runs 9-11 range past few months. Hgb 9.0 on admission and dropped to 6.9 on 08/28 and she received 1U PRBC. No signs of acute blood loss. Iron <10 with TIBC 118 and sat<8%. Was iron deficient in April. No EGD/[place] listed here. Hgb back up to 8 and stable. Continue to follow. (6) Acute on chronic diastolic (congestive) heart failure: Code(s): I50.33 - Acute on chronic diastolic (congestive) heart failure Status: Acute Assessment and Plan: The patient has minimal pleural effusions. BNP 760. Echo here with EF 60-65%, Grade I diastolic dysfunction and small pericardial effusion. No DVT in the UE or LE. Does appear clinically to be mildly fluid overloaded. Tolerating intermittent furosemide doses. (7) Seizure: Code(s): R56.9 - Unspecified convulsions Status: Acute Assessment and Plan: Patient has a history of seizures currently on Depakote. This has been continued. Ativan available as needed for signs of symptoms of seizures. Patient was having tremors but not consistent with seizure activity. EEG as mentioned above. (8) Hypothyroidism: Code(s): E03.9 - Hypothyroidism, unspecified Status: Chronic Assessment and Plan: TSH last month was 4.9. Continue levothyroxine. (9) Alzheimer's dementia: Code(s): G30.9 - Alzheimer's disease, unspecified; F02.80 - Dementia in other disea
--- NOTE | 2020-09-04 10:46 | PCDIET ---
Nutrition Follow-Up Complete: Nutrition Diagnosis: Inadequate oral intake related to oral intubation as evidenced by NPO status. Nutrition Goal: Patient to meet estimated nutritional needs. Goal met. Patient tolerating Glucerna 1.2 at 55mL/hr goal rate with 30mL water flush every 4 hours. Last recorded weight is 72.3 kg which is increased from last review, despite -I/O. Will monitor. Bowel Motility: Frequent BMs, per RN. Labs Reviewed: WBC (12.3), RBC (2.67), Hgb (8.2), Hct (25.3), Glu (225), BUN (21), Cr (0.6), Na (134), Mg (2.4) Meds Noted: Albuterol, Lantus, Norvasc, Atrovent, Protonix, Primaxin, Synthroid, Decadron, Novolog, Namenda Additional Notes: Left heel/foot unstageable. Will continue to monitor with same goal. Nutrition Monitoring and Evaluation: Follow up every Thursday/Thursday.
[2020-09-04 12:07] LABS: Glucose Point of Care 213 mg/dl (65-105)
[2020-09-04 17:28] LABS: Glucose Point of Care 149 mg/dl (65-105)
[2020-09-05] VITALS (14 sets, daily range): BP systolic 128–156; BP diastolic 56–83; PULSE 75–84; RESP 10–21; TEMP 36.9–37.1; O2SAT 96–98
[2020-09-05 00:40] LABS: Glucose Point of Care 135 mg/dl (65-105)
[2020-09-05] MEDS: VALPROIC ACID LIQ 250 MG/5 ML ORAL SOLUTION UDC 500 MG FEED TUBE ×2 (01:23→09:34)
[2020-09-05] MEDS: ALBUTEROL SULFATE NEB 2.5 MG/0.5 ML INH INHALATION ×2 (01:30→07:52)
[2020-09-05] MEDS: IPRATROPIUM BR 0.02% INH SOLN 0.5 MG/2.5 ML VIAL INHALATION ×2 (01:31→07:52)
[2020-09-05 04:27] LABS: Hematocrit 26.6 % (37.0-47.0); Hemoglobin 8.2 g/dL (12.0-15.0); Mean Corpuscular HGB Conc 30.8 g/dl (32-36); Mean Corpuscular Hemoglobin 30.3 pg (26-34); Mean Corpuscular Volume 98.2 fl (80-100); Mean Platelet Volume 8.8 fl (7.4-10.4); Platelet Count Result 549 k/mm3 (150-375); Red Blood Count 2.71 M/mm3 (4.2-5.4); Red Cell Distribution Width 15.9 % (11.5-14.5); White Blood Count 12.9 K/mm3 (4.5-10.0)
[2020-09-05 04:46] LABS: Alanine Aminotransferase 10 U/L (4-35); Albumin Level 2.6 g/dL (3.5-5.1); Alkaline Phosphatase 142 U/L (38-126); Anion Gap 1 mmol/L (8-16); Aspartate Amino Transferase 44 U/L (14-36); Bilirubin,Total 0.1 mg/dL (0.2-1.3); Blood Urea Nitrogen 21 mg/dL (7-17); Calcium 8.4 mg/dL (8.4-10.2); Carbon Dioxide 39 mmol/L (22-30); Chloride 93 mmol/L (98-107); Estimated CRCL calculation 95 ml/min; Estimated Glomerular Filt Rate > 60; Glucose 127 mg/dL (65-105); Magnesium 2.4 mg/dL (1.6-2.3); Phosphorus 3.6 mg/dL (2.5-4.5); Potassium 3.4 mmol/L (3.4-5.0); Sodium 133 mmol/L (137-145)
[2020-09-05 04:54] LABS: Alveolar/Arterial O2 Gradient 70.9 mmHg; Base Excess ABG 11.8 mEq/l (+/-2.0); Carboxyhemoglobin 0.3 % THb (0-2.0); Fractional Inspired Oxygen 30 %; Methemoglobin ABG 0.5 %THb (0-1.5); Oxygen Saturation ABG 97.4 % (95.0-100.0); Oxyhemoglobin 95.6 % THb (90.0-100.0); PCO2 ABG 45.7 mmHg (35.0-45.0); PO2 ABG 89.3 mmHg (80.0-100.0); PO2 FiO2 Ratio Arterial Blood 2.98 %; Reduced Hemoglobin 3.6 %THb (0-5.0); Total Hemoglobin 10.3 g/dL (12.0-18.0)
[2020-09-05 04:55] LABS: pH ABG 7.514 (7.350-7.450)
[2020-09-05 04:56] LABS: Arterial Blood Gas Vent Mode ASV; Device VENTILATOR; Modified Allen's Test Unable to perform; Site Drawn RIGHT RADIAL
[2020-09-05 04:57] LABS: Arterial Blood Gas Minute Volume 4 LPM; Arterial Blood Gas PEEP 5 cmH2O
[2020-09-05] MEDS: CENTRAL LINE FLUSH 10 ML IV PUSH (05:21)
[2020-09-05] MEDS: LEVOTHYROXINE SODIUM 50 MCG TABLET FEED TUBE (06:14)
[2020-09-05 06:19] LABS: Glucose Point of Care 121 mg/dl (65-105)
[2020-09-05] MEDS: POTASSIUM CHLORIDE 20 MEQ PACKET (FOR LIQUID) 40 MEQ FEED TUBE (07:50)
[2020-09-05] MEDS: FUROSEMIDE INJ 40 MG/4 ML VIAL 20 MG IV PUSH (07:51)
[2020-09-05] MEDS: PANTOPRAZOLE SODIUM IV 40 MG VIAL IV PUSH (07:58)
[2020-09-05] MEDS: ENOXAPARIN 40 MG/0.4 ML SYRINGE SUB-Q (07:58)
[2020-09-05] MEDS: DONEPEZIL HCL 10 MG TABLET FEED TUBE (08:10)
[2020-09-05] MEDS: INSULIN GLARGINE (*BKC) 100 UNITS/ML 10 UNITS SUB-Q (08:10)
[2020-09-05] MEDS: amLODIPine BESYLATE 5 MG TABLET PO (08:10)
[2020-09-05] MEDS: MEMANTINE 10 MG TABLET FEED TUBE (08:10)
[2020-09-05] MEDS: ESCITALOPRAM OXALATE 10 MG TABLET FEED TUBE (08:10)
[2020-09-05] MEDS: MINERAL OIL/WHITE PETROLATUM OINTMENT 1 APPLIC EACH EYE (08:11)
--- NOTE | 2020-09-05 08:48 | WPDINTPN ---
Progress Note: A&P Assessment and Plan (1) Acute respiratory failure with hypoxia: Code(s): J96.01 - Acute respiratory failure with hypoxia Status: Acute Assessment and Plan: Acute respiratory failure likely related to pneumonia, heart failure/volume overload -patient [facility] on 08/26/2020 [facility] - patient was extubated on 09/01/2020 after being on pressure support ventilation 8/5 for greater than 24 hours. Post extubation she developed stridor was given racemic epinephrine but continued to be hypoxic, tachypneic in the 40s and 50s. Discussed with daughter who requested that I reintubate the patient until she gets back in town. - patient currently is in ASV mode. ABG reviewed and I have changed minute ventilation to 50% - I will try PSV as toleratedtoday - Chest x-ray and ABG reviewed - sputum cultures growing ESBL Klebsiella. continue imipenem -discussed with Mcfp, patient's baseline is that she opens her eyes, says yes and no to her name. - Lasix IV (2) Anemia: Code(s): D64.9 - Anemia, unspecified Status: Acute Assessment and Plan: Patient dropped her hemoglobin to 6.9 on 08/28/2021, received 1 unit of packed RBCs. -hemoglobin remains stable - stool for Hemoccult - NEGATIVE on 08/29/2020 -iron panel reflective of anemia of chronic disease, vitamin B12 and folic acid within normal limits -LDH normal, -haptoglobin elevated -continue PPI IV Q12H -continue to monitor H/H (3) Bilateral pneumonia: Qualifiers: Lung location: unspecified part of lung Pneumonia type: due to unspecified organism Qualified Code(s): J18.9 - Pneumonia, unspecified organism Code(s): J18.9 - Pneumonia, unspecified organism Status: Acute Assessment and Plan: Sputum cultures growing ESBL Klebsiella -continue imipenem for ESBL Klebsiella (4) Suspected COVID-19 virus infection: Code(s): Z20.822 - Contact with and (suspected) exposure to COVID-19 Status: Acute Assessment and Plan: Patient with hypoxia, acute respiratory failure, bilateral infiltrates -SARS-CoV-2 PCR negative -elevated D-dimer, elevated LDH -discontinue precautions (5) Acute on chronic diastolic (congestive) heart failure: Code(s): I50.33 - Acute on chronic diastolic (congestive) heart failure Status: Acute Assessment and Plan: Bilateral lower extremity edema, acute respiratory failure -echocardiogram 08/29/2020: EF of 60-65%, grade 1 diastolic dysfunction -08/28/2020 venous Dopplers bilateral upper and lower extremity negative for DVTs (6) Electrolyte imbalance: Code(s): E87.8 - Other disorders of electrolyte and fluid balance, not elsewhere classified Status: Acute Assessment and Plan: replace low potassium (7) Altered mental status: Qualifiers: Altered mental status type: unspecified Qualified Code(s): R41.82 - Altered mental status, unspecified Code(s): R41.82 - Altered mental status, unspecified Status: Acute Assessment and Plan: Altered mental status could be related to hypoxia, pneumonia, severe sepsis. patient has baseline severe dementia and poor mental status -off sedation many days now, patient not opening her eyes or following commands, -08/29/[address] scan of brain did not show any acute intracranial abnormality, chronic age-related changes. -start ammonia level on 08/29/2020 was within normal limits -[facility], patient is at her baseline which she only opens her eyes and says yes and no to her name -PATIENT SEEMS TO BE AT BASELINE - continue to hold Seroquel and BuSpar for now (8) Seizure: Code(s): R56.9 - Unspecified convulsions Status: Acute Assessment and Plan: Patient with history of seizures -continue Depakote -EEG 08/29/2020 with no evidence of status epilepticus or focal seizures. (9) Sever
--- NOTE | 2020-09-05 10:40 | PCDIET ---
ICU Rounding Note: Patient tolerating Glucerna 1.2 at 55mL/hr goal rate with 30mL water flush every 4 hours. Last recorded weight is 73kg which is increased from last review. Bowel Motility: +Diarrhea, per nurse. Discussed during rounds. Labs Reviewed: WBC (12.9), RBC (2.71), Hgb (8.2), Hct (26.6), Glu (121), BUN (21), Cr (0.50), Na (133), Alb (2.6), Mg (2.4) Meds Noted: Albuterol, Norvasc, Aricept, Primaxin, Novolog, Lantus, Atrovent, Synthroid, Namenda, Protonix, Seroquel, Lasix, KCl Additional Notes: Left heel unstageable pressure ulcer. Following daily in ICU rounds. Assessing/reassessing every Thursday/Thursday.
--- NOTE | 2020-09-05 10:56 | P.PNCROSS_ITS ---
Event Note Event Note Event Note: Family Meeting I met with patient's daughter and 2 sisters in presence of Dr. Lozano, bedside nurse and palliative care specialist to discuss medical decisions and level of care. Patient is unable to participate herself due to her mental status and respiratory failure. I updated them with patient's current condition, treatment plan, expected prognosis. They told me that patient has had poor quality of life is for many years now. She has had poor mental status at the [facility] that she has stayed for last few years. Hospice has been recommended to them in the past. they all agree the patient would not want to continue living on life supporting treatment considering her quality of life and poor overall prognosis. The family has decided, in accordance with their assessment of pt's wishes, to discontinue all medical therapy and institute comfort measures only. Tthey are going to pursue hospice care if patient is discharged from hospital. I will extubate patient and use opioids, anxiolytics and other agents on as needed basis to promote comfort and discontinue all medical therapy, lab testing and invasive monitoring. Total time spent 20 minutes
[2020-09-05] MEDS: MORPHINE SULFATE INJ (*CRX) 10 MG/ML AMP 5 MG IV PUSH (11:16)
[2020-09-05] MEDS: LORazepam INJ (*CRX) 2 MG/ML VIAL IV PUSH ×4 (11:17→17:33)
--- NOTE | 2020-09-05 11:27 | PC.NURSE ---
Patient made comfort care and extubated. Patient's daughter and 2 sisters at beside after extubation. Patient noted to have stridor. Spoke with Dr. Lozano and Dr. Tolbert. New orders obtained.
--- NOTE | 2020-09-05 11:39 | PM.IMPN ---
Progress Note: A&P Assessment and Plan (1) Encephalopathy: Code(s): G93.40 - Encephalopathy, unspecified Status: Acute Assessment and Plan: Patient remains off sedation. Encephalopathy is persistent possibly related to recent sedatives and/or from her home medication regiment and/or sepsis complicated by her advanced dementia. CT brain showing no acute findings. EEG showing an abnormal record during drowsiness and sleep but no evidence of status epilepticus or any focal seizures. Contineu VPA. Comfort measures now. (2) Acute respiratory failure with hypoxia: Code(s): J96.01 - Acute respiratory failure with hypoxia Status: Acute Assessment and Plan: The patient is intubated but off sedation. Respiratory failure secondary to ESBL Kleb pneumonia; probably why she failed first round of treatment. Hypoxia has improved. COVID testing negative. Wean ventilator as tolerated. Extubation 09/01 failed. Now being extubated for terminal wean. (3) Severe sepsis: Code(s): A41.9 - Sepsis, unspecified organism; R65.20 - Severe sepsis without septic shock Status: Acute Assessment and Plan: Patient with severe sepsis as seen with the acute respiratory failure, Lactic acid 3.1. One of 2 blood culture bottles growing Coag Negative Staph sensitive to Vanco. The 2nd bottle negative. Repeat BCx also negative to date. Suspect Coag negative Staph is a contaminant and thus Vanco stopped. IV antibiotics stopped (4) Bilateral pneumonia: Qualifiers: Lung location: unspecified part of lung Pneumonia type: due to unspecified organism Qualified Code(s): J18.9 - Pneumonia, unspecified organism Code(s): J18.9 - Pneumonia, unspecified organism Status: Acute Assessment and Plan: Patient recently hospitalized for pneumonia. Discharged on August 09 with 5 more days of cefdinir. She returns with respiratory failure and low-grade fever but normal white count. CTA showing no pulmonary emboli but does show improvement in the bilateral lower lobe atelectasis/consolidation. As per antibiotic stewardship, she was started on azithromycin and Rocephin. Vancomycin added for severity, then stopped. Sputum cx growing ESBL Klebsiella with Blood cultures positive as above. Primaxin begun 6/25 PM. Abx stopped for comfort (5) Anemia: Code(s): D64.9 - Anemia, unspecified Status: Acute Assessment and Plan: Hgb normally runs 9-11 range past few months. Hgb 9.0 on admission and dropped to 6.9 on 08/28 and she received 1U PRBC. No signs of acute blood loss. Iron <10 with TIBC 118 and sat<8%. Was iron deficient in April. No EGD/[place] listed here. Hgb up to 8 and stable. Continue to follow. (6) Acute on chronic diastolic (congestive) heart failure: Code(s): I50.33 - Acute on chronic diastolic (congestive) heart failure Status: Acute Assessment and Plan: The patient has minimal pleural effusions. BNP 760. Echo here with EF 60-65%, Grade I diastolic dysfunction and small pericardial effusion. No DVT in the UE or LE. Does appear clinically to be mildly fluid overloaded. Treated with intermittent furosemide doses. (7) Seizure: Code(s): R56.9 - Unspecified convulsions Status: Acute Assessment and Plan: Patient has a history of seizures currently on Depakote. This has been continued. Ativan available as needed for signs of symptoms of seizures. Patient was having tremors but not consistent with seizure activity. EEG as mentioned above. Change to IV VPA to prevent seizures. (8) Hypothyroidism: Code(s): E03.9 - Hypothyroidism, unspecified Status: Chronic Assessment and Plan: TSH last month was 4.9. (9) Alzheimer's dementia: Code(s): G30.9 - Alzheimer's disease, unspecified; F02.80 - Dementia in other diseases classified elsewhere without behavioral disturbance S
[2020-09-05] MEDS: MORPHINE SULFATE (*CRX) 2 MG/ML INJ IV PUSH ×2 (11:52→12:28)
[2020-09-05] MEDS: ATROPINE SULFATE 1% OPHTH SOLN 5 ML BOTTLE SUBLINGUAL (12:28)
[2020-09-05] MEDS: MORPHINE SULFATE INJ (*CRX) 50 MG in SODIUM CHLORIDE 0.9% IV 95 ML IV CONT (12:29)
[2020-09-05] MEDS: SCOPOLAMINE 1.5 MG PATCH TRANSDERM (14:06)
--- NOTE | 2020-09-06 06:48 | PM.DDS ---
Discharge Sum: Prov Provider Primary care physician: PHYSICIAN NOT ON STAFF Admitting provider: Jesus Hong MD Consults: 08/26/20 Wound/ET Consult Routine Reason for Consult:: Left heel pressure ulcer an eschar tissue to right lateral foot 08/26/20 14:54 Consult to Physician Routine Comment: Consulting Provider: Justice Florentino Reason for consultation: acute respiratory failure Has provider been notified: Yes Discharge Sum: Diag PCOD Acute respiratory failure Contributing Factors (1) Encephalopathy: (2) Acute respiratory failure with hypoxia: (3) Severe sepsis: (4) Bilateral pneumonia: (5) Anemia: (6) Acute on chronic diastolic (congestive) heart failure: (7) Seizure: (8) Hypothyroidism: (9) Alzheimer's dementia: (10) Hyperglycemia: (11) Schizophrenia: (12) Foot ulcer: Discharge Sum: Summary Date and Time Date of admission: 08/26/20 14:53 Date of : 09/05/20 Time of : 18:00 Summary Details: 60yo female with dementia, CKD and schizophrenia here for SOB and acute hypoxic respiratory failure from PNA. Intubated on 08/26/20. Patient was weaned off sedation but encephalopathy persistent possibly related to recent sedatives and/or from her home medication regiment and/or sepsis complicated by her advanced dementia. Since she appeared to be oversedated here as well as at the [facility](by report), it was felt that she may be overmedicated so Seroquel dose was decreased. CT brain showed no acute findings. EEG showed an abnormal record during drowsiness and sleep but no evidence of status epilepticus or any focal seizures. We continued her VPA. Respiratory failure secondary to ESBL Kleb pneumonia; probably why she failed first round of treatment. Hypoxia improved. COVID testing negative. Extubation 09/01 failed. Patient also with severe sepsis as seen with the acute respiratory failure, Lactic acid 3.1. One of 2 blood culture bottles growing Coag Negative Staph sensitive to Vanco. The 2nd bottle negative. Repeat BCx also negative to date. Suspect Coag negative Staph is a contaminant and thus Vanco stopped. Patient recently hospitalized for pneumonia and discharged on August 09 with 5 more days of cefdinir. She returned with respiratory failure and low-grade fever but normal white count. CTA showing no pulmonary emboli but does show improvement in the bilateral lower lobe atelectasis/consolidation. As per antibiotic stewardship, she was started on azithromycin and Rocephin. Vancomycin added for severity, then stopped. Sputum cx growing ESBL Klebsiella with Blood cultures positive as above. Abx changed to Primaxin that began 6 PM. Patient also with anemia. Hgb normally runs 9-11 range past few months. Hgb 9.0 on admission and dropped to 6.9 on 08/28 and she received 1U PRBC. No signs of acute blood loss. Iron <10 with TIBC 118 and sat<8%. Was iron deficient in April. No EGD/[place] listed here. Hgb up to 8 and stable. [place] patient had mild acute on chronic CHF. The patient had minimal pleural effusions. BNP 760. Echo here with EF 60-65%, Grade I diastolic dysfunction and small pericardial effusion. No DVT in the UE or LE. Treated with intermittent furosemide doses. Met with family (2 sisters and 1 daughter) with the director of vendor management in conference on 09/05/20. The family have been told back in February that patient was a candidate for hospice care. They all agreed that the patient has a poor quality of life and understand that the patient is a DNR. They would like for patient to be extubated and made comfortable. Patient was made comfortable and then extubated. She in the late afternoon of 09/05/20. Additional Data Attending physician: Jose Manuel Lozano MD Advance directives: Yes Hospice patient?: No
== END 2020-09-05 18:00 | disposition expired | DRG 720 ==
LOC: ANHED 15:02 → ANHICU 15:06
PROVIDERS: Internal Medicine; Nurse Practitioner; Admitting Provider Internal Medicine; Emergency Provider Emergency Medicine; Visit Provider Internal Medicine
DX: A41.9 Sepsis, unspecified organism (principal); J96.01 Acute respiratory failure with hypoxia; G30.9 Alzheimer's disease, unspecified; F02.80 Dementia in other diseases classified elsewhere, unspecified severity, without behavioral disturbance, psychotic disturbance, mood disturbance, and anxiety; N18.30 Chronic kidney disease, stage 3 unspecified; F20.9 Schizophrenia, unspecified; R65.20 Severe sepsis without septic shock; I13.0 Hypertensive heart and chronic kidney disease with heart failure and stage 1 through stage 4 chronic kidney disease, or unspecified chronic kidney disease; I50.33 Acute on chronic diastolic (congestive) heart failure; Z20.822 Contact with and (suspected) exposure to COVID-19; L89.620 Pressure ulcer of left heel, unstageable; L97.519 Non-pressure chronic ulcer of other part of right foot with unspecified severity; D64.9 Anemia, unspecified; E03.9 Hypothyroidism, unspecified; G93.40 Encephalopathy, unspecified; R56.9 Unspecified convulsions; J15.0 Pneumonia due to Klebsiella pneumoniae; Z51.5 Encounter for palliative care; R73.9 Hyperglycemia, unspecified
CPT/HCPCS: 31500; 36415; 36430; 36556; 36600; 70450; 71045; 71275; 80048; 80053; 80076; 80202; 81001; 82140; 82274; 82375; 82607; 82746; 82805; 82948; 83010; 83050; 83540; 83550; 83605; 83615; 83735; 83880; 84100; 85014; 85018; 85025; 85027; 85046; 85380; 85610; 85730; 86140; 86850; 86900; 86901; 86920; 87040; 87070; 87077; 87186; 87205; 93005; 93306; 93970; 94002; 94003; 94640; 95816; 96374; 99291; A9270; C1751; C9113; C9803; J0456; J0696; J0743; J1100; J1650; J1815; J1940; J2060; J2250; J2270; J3010; J3370; J3475; J3480; J7030; J7050; P9016; Q9967; U0003; U0005